=== PATIENT | female | born 1930 | race Caucasian/White ===

== ENCOUNTER 2016-09-09 05:10 | Observation (INO) ==
[2016-09-09] MEDS ORDERED: *HR* HYDROmorphone (PF) 1 MG/ML SYRINGE IVP ONE ×2 (05:23→08:49)
[2016-09-09] MEDS ORDERED: Ondansetron 4 MG/2 ML VIAL IVP ONE (05:23)
--- NOTE | 2016-09-09 05:26 | Emergency Department Note ---
Addendum entered and electronically signed by Parker Munson DO 09/09/16 07: 03: EKG shows sinus rhythm with ventricular rate of 78 bpm. GA 149. QRS 106. Patient has no elevations or depressions. Patient has no T-wave changes. EKG is similar to previous of 07/29/15. Original Note: Disposition Clinical Impression: Neck pain Disposition: Still a Patient Condition: Good Referrals: Karel Nick MD [Primary Care Provider] - Forms: ED Satisfaction Letter General Adult HPI - General Chief complaint: ED Neck Pain/Injury Stated complaint: Neck pain Time Seen by Provider: 09/09/16 05:17 Source: EMS Mode of arrival: ambulatory Limitations: no limitations Nursing Notes Reviewed: Yes Vital Signs Reviewed: Yes - History of Present Illness HPI Narrative: Patient here for evaluation of neck and shoulder pain. Patient's symptoms started on to been progressive in nature. Patient is not taking any pain medications except one Percocet later today after symptoms became as severe as they are. She has significant pain with even minor outpatient. No evidence of rash or other skin abnormality. Patient has pain with any movement of her neck as well as twisting of her torso. Patient has not had fevers or altered mental status. No abnormalities to lower extremities. Pain Scale: 10 - Related Data Previous Rx's Medication Instructions Recorded TraMADol [Ultram] 50 mg PO Q6HR PRN #15 tablet 01/23/15 Allergies Allergy/AdvReac Type Severity Reaction Status Date / Time acetaminophen [From Vicodin] AdvReac See Verified 01/02/15 09:31 Comments Cyclobenzaprine AdvReac Drowsy Verified 01/02/15 09:31 [From Flexeril] hydrocodone [From Vicodin] AdvReac See Verified 01/02/15 09:31 Comments Hydromorphone [From Dilaudid] AdvReac Drowsy Verified 01/02/15 09:31 Oxycodone AdvReac Dizziness Verified 01/02/15 09:31 Review of Systems: CONSTITUTIONAL: No weight loss, fever, chills, weakness or fatigue. HEENT: Eyes: No visual changes. Ears, Nose, Throat: No hearing loss, difficulty talking or unable to swallow. SKIN: No rash or itching. CARDIOVASCULAR: No chest pain, chest pressure or chest discomfort. No palpitations or edema. RESPIRATORY: No shortness of breath, cough or sputum. GASTROINTESTINAL: No anorexia, nausea, vomiting or diarrhea. No abdominal pain or blood. GENITOURINARY: No burning on urination or hematuria. NEUROLOGICAL: No headache, dizziness, syncope, paralysis, ataxia, numbness or tingling in the extremities. No change in bowel or bladder control. MUSCULOSKELETAL: Neck and upper back pain Past Medical History - Past Medical History Medical history: Reports: diabetes, renal disease, myocardial infarction, hypertension, TIA, kidney stones Surgical history: Reports: hysterectomy Psychiatric history: Reports: no psych history EDGE SAWYER history: Reports: no EDGE SAWYER history - Social History Smoking Status: Never smoker Smokeless Tobacco Status: No Alcohol use: Reports: none Drug use: Reports: none Physical Exam General appearance: NAD, conversant Eyes: anicteric sclerae, moist conjunctivae; PERRL HENT: Atraumatic; oropharynx clear with moist mucous membranes and no mucosal ulcerations Neck: Normal inspection; Trachea midline; FROM, supple Lungs: CTA, with normal respiratory effort and no intercostal retractions CV: RRR, systolic heart murmur Abdomen: Soft, non-tender; no rebound or gaurding Extremities: No peripheral edema or extremity lymphadenopathy Skin: Normal temperature; no rash, ulcers or lesions Psych: Appropriate mood and affect Neuro: alert and oriented to person, place and time Musculoskeletal: Patient has tenderness to the left lateral neck as well as trapezius that spreads to the left and right trapezius. Mild rhomboid tenderness. - General General appearance: alert Course - Reevaluation(s) Reevaluation #1: We will sign patient out to Dr. Wells. Vital Signs Temperature 97.7 F 09/09/16 05:11 Pulse Rate 77 09/09/16 05:11 Respiratory Rate 16 09/09/16 05:11 Blood Pressure 193/84 09/09/16 05:11 O2 Sat by Pulse Oximetry 96 09/09/16 05:11 Temperature 97.7 F 09/09/16 05:11 Pulse Rate 73 09/09/16 06:19 Respiratory Rate 18 09/09/16 06:19 Blood Pressure 176/79 09/09/16 06:19 O2 Sat by Pulse Oximetry 98 09/09/16 06:19 Oxygen Delivery Oxygen Delivery Nasal Cannula Attestation Statement - Attestation Attestation: I personally interviewed and examined this patient and my medical decision- making was reviewed with the ED Resident Physician, Dr. Munson. I agree with the documented findings, disposition and treatment plan as described except to the extent set forth below. Patient is a pleasant 86-year-old white elderly female who presents to the emergency department with complaints of gradually worsening right sided neck and shoulder pain. Patient states she fell asleep in her recliner last week and upon waking had significant left-sided neck and shoulder pain. Recent states over the course of time the left side has improved and now she feels like it is gone over to the right side. She has no radiating pain down her back nor through to her chest or down the right upper extremity. Patient denies any numbness or weakness in the arms bilaterally. Patient denies any history of falls or trauma. Patient with no midline neck pain or discomfort. I agree with patient's physical exam is documented. Clinically patient with what appears to be muscle strain or spasm in the paraspinal lower cervical and upper thoracic muscles as well as the rhomboid area and deltoid muscle and right greater than left. We will reevaluate patient after pain medicine administration and will see if she is comfortable with discharge home to follow-up with her family doctor.
[2016-09-09] MEDS ORDERED: diazePAM 10 MG/2 ML SYRINGE IVP STA (06:59)
--- NOTE | 2016-09-09 07:18 | Emergency Department Note ---
Disposition Clinical Impression: Neck pain, Degenerative disc disease, cervical, Cervical stenosis of spinal canal Disposition: Admitted As Inpatient Condition: Good Referrals: Karel Nick MD [Primary Care Provider] - Forms: ED Satisfaction Letter Time of Disposition: 09:26 General Adult HPI - General Chief complaint: ED Neck Pain/Injury Stated complaint: Neck pain Time Seen by Provider: 09/09/16 05:17 Source: EMS Mode of arrival: ambulatory Limitations: no limitations - History of Present Illness Pain Scale: 10 - Related Data Previous Rx's Medication Instructions Recorded TraMADol [Ultram] 50 mg PO Q6HR PRN #15 tablet 01/23/15 Allergies Allergy/AdvReac Type Severity Reaction Status Date / Time acetaminophen [From Vicodin] AdvReac See Verified 01/02/15 09:31 Comments Cyclobenzaprine AdvReac Drowsy Verified 01/02/15 09:31 [From Flexeril] hydrocodone [From Vicodin] AdvReac See Verified 01/02/15 09:31 Comments Hydromorphone [From Dilaudid] AdvReac Drowsy Verified 01/02/15 09:31 Oxycodone AdvReac Dizziness Verified 01/02/15 09:31 Past Medical History - Past Medical History Medical history: Reports: diabetes, renal disease, myocardial infarction, hypertension, TIA, kidney stones Surgical history: Reports: hysterectomy Psychiatric history: Reports: no psych history SERVICE PLUMBER history: Reports: no SERVICE PLUMBER history - Social History Smoking Status: Never smoker Smokeless Tobacco Status: No Alcohol use: Reports: none Drug use: Reports: none Physical Exam - General Limitations: no limitations General appearance: alert Course - Reevaluation(s) Reevaluation #1: 86-year-old who was seen by overnight stocker with neck pain that is severe. Given her pain meds muscle relaxers she continues to have severe pain. I discussed with the patient recent history. Patient states she initially had pain on the left side of her neck she thought she slept wrong. The pain is now migrated to the right side when she moves her head it seems to be worse. Dr. Munson indicates that clinically she looks better after pain medicine but she states she's had no improvement. Physical examination she does have tenderness to the right of anterior margin the trapezius. She denies any headache and symptoms are clinically consistent with vertebral artery dissection. In light of her minimal improvement subjectively were going to obtain an MRI and some lab work. Note she was given Dilaudid earlier, patient states she is not allergic to it. Time: :17 - Consultations Consultation #1: I spoke to Dr. Souza who recommends admission to the hospitalist and further evaluation. Time: : Consultation #2: Discussed with , admit. Time: : Vital Signs Temperature 97.7 F 09/09/16 05:11 Pulse Rate 77 09/09/16 05:11 Respiratory Rate 16 09/09/16 05:11 Blood Pressure 193/84 09/09/16 05:11 O2 Sat by Pulse Oximetry 96 09/09/16 05:11 Temperature 97.7 F 09/09/16 05:11 Pulse Rate 74 09/09/16 08:47 Respiratory Rate 18 09/09/16 08:47 Blood Pressure 165/83 09/09/16 08:47 O2 Sat by Pulse Oximetry 97 09/09/16 08:47 Oxygen Delivery Oxygen Delivery Room Air Medical Decision Making - Lab Data Result diagrams: 09/09/16 07:33 09/09/16 07:33 Lab Results 09/09/16 09/09/16 09/09/16 Range/Units 07:33 07:33 07:33 WBC 7.9 (4.3-11.1) K/mcL RBC 4.45 (3.82-4.97) M/mcL Hgb 11.0 L (11.5-15.4) g/dL Hct 35.9 (35.3-44.9) % MCV 80.7 L (83.0-100.0) fL MCH 24.7 L (28.0-33.3) pg MCHC 30.6 L (31.6-35.5) g/dL RDW 14.3 (11.5-14.5) % Plt Count 177 (140-400) K/mcL MPV 13.3 H (9.4-12.4) fL Immature Gran % 0.1 (0-4) % Seg Neutrophils % 68.5 % Lymphocytes % 21.2 % Monocytes % 8.3 % Eosinophils % 1.4 % Basophils % 0.5 % Neutrophils # 5.4 (1.6-8.9) K/mcL Lymphocytes # 1.7 (0.6-4.6) K/mcL Monocytes # 0.7 (0.0-1.3) K/mcL Eosinophils # 0.1 (0.0-0.6) K/mcL Basophils # 0.0 (0.0-0.2) K/mcL ESR 44 H (0-15) mm/hr Sodium 141 (136-145) mEq/L Potassium 4.5 (3.5-4.5) mEq/L Chloride 106 (98-109) mEq/L Carbon Dioxide 28 (19-29) mEq/L BUN 16 (7-20) mg/dL Creatinine 1.06 (0.57-1.11) mg/dL Est GFR ( Amer) 60 (> 60) Est GFR (Non-Af Amer) 49 L (> 60) BUN/Creatinine Ratio 15 (6-26) Glucose 114 H (70-99) mg/dL Calculated Osmolality 294 (280-300) Calcium 9.7 (8.6-10.8) mg/dL Troponin I (0-0.03) ng/mL 09/09/16 Range/Units 07:33 WBC (4.3-11.1) K/mcL RBC (3.82-4.97) M/mcL Hgb (11.5-15.4) g/dL Hct (35.3-44.9) % MCV (83.0-100.0) fL MCH (28.0-33.3) pg MCHC (31.6-35.5) g/dL RDW (11.5-14.5) % Plt Count (140-400) K/mcL MPV (9.4-12.4) fL Immature Gran % (0-4) % Seg Neutrophils % % Lymphocytes % % Monocytes % % Eosinophils % % Basophils % % Neutrophils # (1.6-8.9) K/mcL Lymphocytes # (0.6-4.6) K/mcL Monocytes # (0.0-1.3) K/mcL Eosinophils # (0.0-0.6) K/mcL Basophils # (0.0-0.2) K/mcL ESR (0-15) mm/hr Sodium (136-145) mEq/L Potassium (3.5-4.5) mEq/L Chloride (98-109) mEq/L Carbon Dioxide (19-29) mEq/L BUN (7-20) mg/dL Creatinine (0.57-1.11) mg/dL Est GFR ( Amer) (> 60) Est GFR (Non-Af Amer) (> 60) BUN/Creatinine Ratio (6-26) Glucose (70-99) mg/dL Calculated Osmolality (280-300) Calcium (8.6-10.8) mg/dL Troponin I 0.00 (0-0.03) ng/mL - Radiology Data Radiology results reviewed: Yes I reviewed the patient's radiology results. Cervical Spine MRI 09/09/16 07:13 IMPRESSION: 1. Moderate to severe C6-C7 degenerative disc disease with [id number] multifactorial spinal canal stenosis. Mild left neural foraminal stenosis at this level. 2. Additional mild multilevel degenerate spondylosis throughout the remainder of the cervical spine without additional high-grade spinal canal or neural foraminal stenosis. D/ / Adan Mccarthy MD / Adan Mccarthy MD Interpreting Provider: Adan Mccarthy MD - EKG Data EKG #1 EKG shows normal: sinus rhythm Rate: normal Rhythm: NSR Interpretation: no acute changes
[2016-09-09 07:38] LABS: Basophils % 0.5 %; Eosinophils # 0.1 K/mcL (0.0-0.6); Eosinophils % 1.4 %; Hematocrit 35.9 % (35.3-44.9); Immature Granulocytes % 0.1 % (0-4); Lymphocytes # 1.7 K/mcL (0.6-4.6); Lymphocytes % 21.2 %; Mean Corpuscular HGB Conc 30.6 g/dL (31.6-35.5); Mean Corpuscular Hemoglobin 24.7 pg (28.0-33.3); Mean Corpuscular Volume 80.7 fL (83.0-100.0); Mean Platelet Volume 13.3 fL (9.4-12.4); Monocytes # 0.7 K/mcL (0.0-1.3); Monocytes % 8.3 %; Neutrophils # 5.4 K/mcL (1.6-8.9); Platelet Count 177 K/mcL (140-400); Red Blood Count 4.45 M/mcL (3.82-4.97); Red Cell Distribution Width 14.3 % (11.5-14.5); Segmented Neutrophils % 68.5 %
[2016-09-09 07:50] LABS: Calcium 9.7 mg/dL (8.6-10.8); Potassium 4.5 mEq/L (3.5-4.5)
[2016-09-09] MEDS ORDERED: *HR* HYDROmorphone (PF) 1 MG/ML SYRINGE IVP PRN (10:47)
[2016-09-09] MEDS ORDERED: Naloxone 0.4 MG/ML INJ IVP PRN (10:47)
[2016-09-09] MEDS ORDERED: Acetaminophen 325 MG TABLET PO PRN (10:47)
[2016-09-09] MEDS ORDERED: Ondansetron 4 MG/2 ML VIAL IVP PRN (10:47)
--- NOTE | 2016-09-09 10:59 | Internal Med History&Physical ---
<Jo Mendes M - Last Filed: 09/09/16 11:32> Date of Encounter: 09/09/16 Time of Encounter: 10:56 Assessment and Plan (1) Neck pain Current visit: Yes Status: Acute Patient presents with severe, intractable pain in right neck. MRI shows severe degenerative disc disease in C6-C7 with moderate to severe multifactorial spinal canal stenosis. She was given dilaudid, diazepam and cogentin in the ER without any reported relief. PRN tylenol, oxycodone, dilaudid for pain. PRN diazepam for muscle spasm PRN narcan for respiratory depression. heat packs PRN PT consulted Dr. Souza of orthopedic/spine consulted. (2) Cervical stenosis of spinal canal Current visit: Yes Status: Acute Dr. Souza of orthopedic/spine consulted. (3) Type 2 diabetes mellitus Current visit: Yes Status: Acute Well controlled as evidenced by A1c of 5.7 on 08/18/16. Hold glipizide check blood sugars ACHS sliding scale correction dose ACHS hypoglycemic protocol. Qualifiers: Diabetes mellitus complication status: without complication Diabetes mellitus marine oil terminal superintendent insulin use: without marine oil terminal superintendent use Qualified Code(s): E11.9 - Type 2 diabetes mellitus without complications (4) Anticoagulated on Coumadin Current visit: Yes Status: Acute Patient has been on coumadin since her CVA last july. She follows with the anti-coagulation here. Will check PT/INR, PTT. Continue home dose of coumadin as long as INR is therapeutic. (5) Paroxysmal a-fib Current visit: Yes Status: Acute Patient with history of paroxysmal afib, as well as TIAs. She is on coumadin for anti-coagulation. She is currently in sinus rhythm with regular rate and rhythm on exam. Continue coumadin. Consider beta scarlett for uncontrolled hypertension as it would have dual purpose of rate control in the case of paroxysmal afib. (6) Hypertension Current visit: Yes Status: Acute Patient's blood pressure running high. Likely secondary to pain, but she also has not yet taken her morning lisinopril. Will continue home dose of lisinopril and consider adding beta scarlett if hypertension persists. Qualifiers: Hypertension type: essential hypertension Qualified Code(s): I10 - Essential (primary) hypertension (7) DVT prophylaxis Current visit: Yes Status: Acute anti-embolic stockings Patient on coumadin, additional pharmacologic prophylaxis not warranted. Internal Medicine - H&P: HPI Chief complaint: neck pain Admitted From: Emergency Dept Plans for Post Hospital Care: Home History of present illness: Ms. Blair is a 86 year old female hypertension, hyperlipidemia, type 2 diabetes , TIA, presented to the emergency department with complaints of neck pain. Patient reports that on the left side of her neck had a twinge in and she felt like she slept wrong, the pain then moved to the right side of her neck. She reports the right side of her neck is been hurting since Thursday evening and has been progressively worsening in severity. She describes the pain as severe stabbing pain running up the backside of her neck to her head into her upper right shoulder. She states she used heat packs at home which somewhat helped with the pain, and she took a Percocet at home which did not seem to help. She denies any chest pain, palpitations, shortness of breath, lightheadedness, dizziness, recent fevers fevers, chills, sweats. Evaluation in the emergency department included an MRI which showed moderate to severe C6- C7 degenerative disc disease with mild to moderate multifactorial spinal canal stenosis. On was negative at 0.00. White blood cell count was normal at 7.9. Dr. Souza of orthopedic spinal surgery was consulted. Patient's pain was intractable and so she was admitted for further management. On exam, patient alert and oriented, in no acute distress. Heart with regular rate and rhythm, systolic murmur. Lungs clear bilaterally to auscultation. Right posterior neck tender to palpation. Past Med Surg Social Fam HX - Past Medical History Medical history: diabetes, renal disease, myocardial infarction, hypertension, TIA, kidney stones Psychiatric history: no psych history - Past Surgical History Surgical History: appendectomy, cholecystectomy, hysterectomy, orthopedic, other (back surgery, right soulder, left rotator cuff surgery, ) - Social History Smoking Status: Never smoker Smokeless Tobacco Status: No Alcohol use: none Drug use: none - Family History Mother Living Status: Age at : 65 Hx Family Cardiac Disorders: Yes Hx Family Endocrine Disorder: Yes (diabetes) Father Living Status: Age at : 65 Hx Family Cardiac Disorders: Yes Internal Medicine - H&P: Meds Atorvastatin [Lipitor] 40 mg PO HS 09/09/16 [History] Ergocalciferol (VITAMIN D2) [Vitamin D2] 50,000 unit PO WALSH 09/09/16 [History] Gabapentin [Neurontin] 600 mg PO TID 09/09/16 [History] GlipiZIDE XL (24 HR) [Glucotrol XL] 2.5 mg PO QAM 09/09/16 [History] Lisinopril [Zestril] 20 mg PO BID 09/09/16 [History] Tizanidine HCl 2 mg PO BID PRN 09/09/16 [History] Warfarin [Coumadin] 5 mg PO SUTUWETHSA 09/09/16 [History] Warfarin [Coumadin] 7.5 mg PO MOFR 09/09/16 [History] Allergies acetaminophen [From Vicodin] Adverse Reaction (Verified 01/02/15 09:31) See Comments Cyclobenzaprine [From Flexeril] Adverse Reaction (Verified 01/02/15 09:31) Drowsy hydrocodone [From Vicodin] Adverse Reaction (Verified 01/02/15 09:31) See Comments Hydromorphone [From Dilaudid] Adverse Reaction (Verified 01/02/15 09:31) Drowsy Oxycodone Adverse Reaction (Verified 01/02/15 09:31) Dizziness All Systems PM: A 10-system review of systems was performed and is negative for pertinent findings except as documented above in the HPI. - Constitutional Constitutional: no chills, no fever(s), no night sweats - EENT Eyes: no change in vision, no discharge, no pain, no photophobia Ears: no ear discharge, no ear pain, no tinnitus Nose, mouth and throat: neck pain, no dysphagia, no nasal discharge, no sore throat - Cardiovascular Cardiovascular ROS IM: no chest pain, no diaphoresis, no dyspnea, no lightheadedness, no palpitations, no syncope - Respiratory Respiratory: no cough, no dyspnea, no wheezing, no excessive phlegm production - Gastrointestinal Gastrointestinal: no abdominal pain, no diarrhea, no hematemesis, no hematochezia, no melena, no nausea, no vomiting - Genitourinary Genitourinary: no change in urinary stream, no dysuria, no flank pain, no hematuria - Musculoskeletal Musculoskeletal ROS IM: no numbness, no tingling - Integumentary Integumentary IM: no rash, no unusual bruising - Neurological Neurological ROS: no confusion, no convulsions, no focal weakness, no numbness, no tingling, no tremor(s) - Hematologic/Lymphatic Hematologic/Lymphatic: no easy bruising - Constitutional Vitals: Temp Pulse Resp BP Pulse Ox 97.7 F 74 18 156/84 97 09/09/16 05:11 09/09/16 08:47 09/09/16 10:01 09/09/16 10:01 09/09/16 08:47 General appearance: Present: A&O X 3, pleasant, no acute distress - Head Head exam: Present: atraumatic, normocephalic - Eye Eye exam: Present: PERRL, conjuntiva pink, sclera anicteric Pupils: Present: PERRL - Neck Neck exam general surgery: Present: tenderness, supple, trachea midline. Absent : lymphadenopathy - Respiratory Respiratory exam: Present: CTAB. Absent: accessory muscle use, rales, rhonchi, wheezes - Cardiovascular Cardiovascular exam: Present: RRR, +S1, +S2, systolic murmur. Absent: diastolic murmur, gallop, rubs - GI/Abdominal GI/Abdominal exam: Present: normal bowel sounds, soft, no peritoneal signs. Absent: distended, tenderness - Extremities Exam Extremities exam: Present: warm, radial pulses palpable and symetrical. Absent : calf tenderness, cyanotic, pedal edema - Neurological Exam Neurological exam: Present: CN II-XII intact, oriented X3, no focal deficits. Absent: pronater drift, facial droop, speech deficit - Skin Skin exam: Present: dry, intact Internal Med - H&P Results - Labs CBC & Chem 7: 09/09/16 07:33 09/09/16 07:33 Labs: All Lab Results (24 Hours) 09/09/16 09/09/16 09/09/16 Range/Units 07:33 07:33 07:33 WBC 7.9 (4.3-11.1) K/mcL RBC 4.45 (3.82-4.97) M/mcL Hgb 11.0 L (11.5-15.4) g/dL Hct 35.9 (35.3-44.9) % MCV 80.7 L (83.0-100.0) fL MCH 24.7 L (28.0-33.3) pg MCHC 30.6 L (31.6-35.5) g/dL RDW 14.3 (11.5-14.5) % Plt Count 177 (140-400) K/mcL MPV 13.3 H (9.4-12.4) fL Immature Gran % 0.1 (0-4) % Seg Neutrophils % 68.5 % Lymphocytes % 21.2 % Monocytes % 8.3 % Eosinophils % 1.4 % Basophils % 0.5 % Neutrophils # 5.4 (1.6-8.9) K/mcL Lymphocytes # 1.7 (0.6-4.6) K/mcL Monocytes # 0.7 (0.0-1.3) K/mcL Eosinophils # 0.1 (0.0-0.6) K/mcL Basophils # 0.0 (0.0-0.2) K/mcL ESR 44 H (0-15) mm/hr Sodium 141 (136-145) mEq/L Potassium 4.5 (3.5-4.5) mEq/L Chloride 106 (98-109) mEq/L Carbon Dioxide 28 (19-29) mEq/L BUN 16 (7-20) mg/dL Creatinine 1.06 (0.57-1.11) mg/dL Est GFR ( Amer) 60 (> 60) Est GFR (Non-Af Amer) 49 L (> 60) BUN/Creatinine Ratio 15 (6-26) Glucose 114 H (70-99) mg/dL Calculated Osmolality 294 (280-300) Calcium 9.7 (8.6-10.8) mg/dL Troponin I (0-0.03) ng/mL 09/09/16 Range/Units 07:33 WBC (4.3-11.1) K/mcL RBC (3.82-4.97) M/mcL Hgb (11.5-15.4) g/dL Hct (35.3-44.9) % MCV (83.0-100.0) fL MCH (28.0-33.3) pg MCHC (31.6-35.5) g/dL RDW (11.5-14.5) % Plt Count (140-400) K/mcL MPV (9.4-12.4) fL Immature Gran % (0-4) % Seg Neutrophils % % Lymphocytes % % Monocytes % % Eosinophils % % Basophils % % Neutrophils # (1.6-8.9) K/mcL Lymphocytes # (0.6-4.6) K/mcL Monocytes # (0.0-1.3) K/mcL Eosinophils # (0.0-0.6) K/mcL Basophils # (0.0-0.2) K/mcL ESR (0-15) mm/hr Sodium (136-145) mEq/L Potassium (3.5-4.5) mEq/L Chloride (98-109) mEq/L Carbon Dioxide (19-29) mEq/L BUN (7-20) mg/dL Creatinine (0.57-1.11) mg/dL Est GFR ( Amer) (> 60) Est GFR (Non-Af Amer) (> 60) BUN/Creatinine Ratio (6-26) Glucose (70-99) mg/dL Calculated Osmolality (280-300) Calcium (8.6-10.8) mg/dL Troponin I 0.00 (0-0.03) ng/mL - Diagnostic Studies Other Images Additional comments: Cervical Spine MRI 09/09/16 07:13 IMPRESSION: 1. Moderate to severe C6-C7 degenerative disc disease with [id number] multifactorial spinal canal stenosis. Mild left neural foraminal stenosis at this level. 2. Additional mild multilevel degenerative spondylosis throughout the remainder of the cervical spine without additional high-grade spinal canal or neural foraminal stenosis. D/ / 09/09/2016 09:06:53 Adan Mccarthy MD / Nilda Richardson Interpreting Provider: Adan Mccarthy MD <Girish Corley - Last Filed: 09/09/16 18:41> Date of Encounter: 09/09/16 Internal Medicine - H&P: HPI History of present illness: Ms. Blair is a 86 year old female All Systems PM: A 10-system review of systems was performed and is negative for pertinent findings except as documented above in the HPI. - Constitutional Vitals: Temp Pulse Resp BP Pulse Ox 98.5 F 84 16 165/65 99 09/09/16 15:15 09/09/16 15:15 09/09/16 15:15 09/09/16 15:15 09/09/16 15:15 Internal Med - H&P Results - Labs CBC & Chem 7: 09/09/16 07:33 09/09/16 07:33 - Attending Attestation I examined this patient and my medical decision-making was reviewed with the Advanced Practice Nurse. I agree with the documented findings, disposition and treatment plan as described .
[2016-09-09] MEDS ORDERED: *HR* Dextrose 50 % in Water (Syg) 50 ML SYRINGE IVP PRN (11:08)
[2016-09-09] MEDS ORDERED: D5% in Water 1,000 ML IVC PRN (11:08)
[2016-09-09] MEDS ORDERED: Dextrose Gel 15 GM PO PRN ×2 (11:08)
[2016-09-09 11:18] LABS: INR 3.2; Prothrombin Time 35.6 Seconds (9.4-12.1)
[2016-09-09 11:22] LABS: Activated Partial Thrombo Time 45.3 Seconds (26.0-36.0)
[2016-09-09] MEDS ORDERED: diazePAM 10 MG/2 ML SYRINGE IVP PRN (11:26)
[2016-09-09] MEDS: Insulin LISPRO 300 UNITS/3 ML VIAL SQ SCH ×3 (11:34→21:09)
[2016-09-09] MEDS: Lisinopril 20 MG TABLET PO SCH ×2 (12:07→21:23)
[2016-09-09] MEDS: *HR* HYDROmorphone (PF) 1 MG/ML SYRINGE IVP PRN ×2 (12:07→18:04)
[2016-09-09] MEDS: *HR* OxyCODONE Immed Rel 5 MG TABLET PO PRN ×2 (13:36→19:38)
[2016-09-09] MEDS: tiZANidine 4 MG TABLET PO PRN (16:15)
[2016-09-09] MEDS: Gabapentin 300 MG CAPSULE PO SCH ×2 (16:15→21:23)
--- NOTE | 2016-09-09 16:49 | Electrocardiograph Report ---
[address] [address] Test Date: 2016-09-09 Pat Name: Jillian Blair Department: 104 Room: 3A24 Gender: F Credit Control Clerk: : 1930 Requested By: Argentina Vázquez Order Number: [id number] Reading MD: Valentina Song Measurements Intervals Doss Rate: 78 P: 21 CO: 149 QRS: 2 QRSD: 106 T: 23 QT: 370 QTc: 403 Interpretive Statements SINUS RHYTHM Electronically Signed On 09-09-2016 16:48:11 EDT by Valentina Song
[2016-09-09] MEDS ORDERED: *HR* Warfarin 5 MG TABLET PO SCH (18:00)
--- NOTE | 2016-09-09 18:19 | Electrocardiograph Report ---
[address] [place], [place] [address] Test Date: 2016-09-09 Pat Name: Jillian Blair Department: 105 Room: 3A24 Gender: Quality Officer: : 1930 Requested By: Mono Wells Order Number: [id number] Reading MD: Lay Terrazas Measurements Intervals [place] Rate: 76 P: 14 CT: 164 QRS: 2 QRSD: 89 T: 19 QT: 388 QTc: 418 Interpretive Statements SINUS RHYTHM Consider left atrial abnormality Electronically Signed On 09-09-2016 18:17:38 EDT by Lay Terrazas
[2016-09-09] MEDS ORDERED: Lisinopril 20 MG TABLET PO SCH (21:00)
[2016-09-10] MEDS: *HR* OxyCODONE Immed Rel 5 MG TABLET PO PRN ×3 (03:39→23:45)
[2016-09-10 04:14] LABS: Basophils % 0.3 %; Eosinophils # 0.1 K/mcL (0.0-0.6); Eosinophils % 0.7 %; Hematocrit 35.9 % (35.3-44.9); Immature Granulocytes % 0.4 % (0-4); Immature Platelets 15.7 % (1.1-6.1); Lymphocytes # 2.2 K/mcL (0.6-4.6); Lymphocytes % 23.3 %; Mean Corpuscular HGB Conc 30.6 g/dL (31.6-35.5); Mean Corpuscular Hemoglobin 24.8 pg (28.0-33.3); Mean Corpuscular Volume 80.9 fL (83.0-100.0); Mean Platelet Volume 13.4 fL (9.4-12.4); Monocytes # 1.3 K/mcL (0.0-1.3); Monocytes % 13.7 %; Neutrophils # 5.9 K/mcL (1.6-8.9); Platelet Count 188 K/mcL (140-400); Red Blood Count 4.44 M/mcL (3.82-4.97); Red Cell Distribution Width 14.3 % (11.5-14.5); Segmented Neutrophils % 61.6 %
[2016-09-10 04:18] LABS: INR 3.3; Prothrombin Time 36.9 Seconds (9.4-12.1)
[2016-09-10 04:21] LABS: Activated Partial Thrombo Time 47.1 Seconds (26.0-36.0)
[2016-09-10 04:26] LABS: Calcium 9.6 mg/dL (8.6-10.8); Potassium 4.6 mEq/L (3.5-4.5)
[2016-09-10] MEDS: Insulin LISPRO 300 UNITS/3 ML VIAL SQ SCH ×4 (07:53→23:44)
[2016-09-10] MEDS: tiZANidine 4 MG TABLET PO PRN ×2 (07:59→23:45)
[2016-09-10] MEDS: Gabapentin 300 MG CAPSULE PO SCH ×2 (09:33→20:05)
[2016-09-10] MEDS: Lisinopril 20 MG TABLET PO SCH ×2 (09:33→20:05)
[2016-09-10] MEDS: *HR* HYDROmorphone (PF) 1 MG/ML SYRINGE IVP PRN ×3 (12:04→20:04)
--- NOTE | 2016-09-10 14:10 | Internal Med Progress Note ---
Date of Encounter: 09/10/16 Time of Encounter: 10:00 - Assessment and plan (1) Neck pain Current Visit: Yes Status: Acute Assessment and plan: Acute neck pain. MRI shows cervical spine stenosis and degenerative change. On pain medication. Spine surgery Dr. Souza Consult informed by ER doctor. Will also consult pain management. (2) Degenerative disc disease, cervical Current Visit: Yes Status: Acute Assessment and plan: Pain management. Spine surgery evaluation. PTOT. (3) Cervical stenosis of spinal canal Current Visit: Yes Status: Acute Assessment and plan: Management as above (4) Anticoagulated on Coumadin Current Visit: Yes Status: Acute Assessment and plan: Continue Coumadin. Dose by pharmacy. (5) Type 2 diabetes mellitus Current Visit: Yes Status: Acute Assessment and plan: Cover patient with sliding scale Qualifiers: Diabetes mellitus complication status: with kidney complications Diabetes mellitus complication detail: with chronic kidney disease Diabetes mellitus snf insulin use: without snf use Chronic kidney disease stage: stage 3 (moderate) Qualified Code(s): E11.22 - Type 2 diabetes mellitus with diabetic chronic kidney disease; N18.3 - Chronic kidney disease, stage 3 ( moderate) (6) Paroxysmal a-fib Current Visit: Yes Status: Acute Assessment and plan: Pt has history of TIA. Right now she is on sinus rhythm, HR 65. We will continue Coumadin for anticoagulation. (7) Hypertension Current Visit: Yes Status: Acute Assessment and plan: Continue home medications Qualifiers: Hypertension type: essential hypertension Qualified Code(s): I10 - Essential (primary) hypertension (8) Lumbar spondylosis Current Visit: No Status: Chronic Assessment and plan: Patient has chronic low back pain. She is a following pain management Dr. López as outpatient Qualifiers: Spinal osteoarthritis complication: without myelopathy or radiculopathy Qualified Code(s): M47.816 - Spondylosis without myelopathy or radiculopathy, lumbar region (9) DVT prophylaxis Current Visit: Yes Status: Acute Assessment and plan: Patient is on Coumadin. - Time Spent With Patient 25 - 35 minutes - Subjective Interval history: Patient is a 86-year-old female admitted for severe neck pain. Her past medical history is significant for diabetes, CKD, paroxysmal A. fib, history of TIA, hypertension. Pt was seen and examined. Still complaining severe neck pain, said that the pain moved to head. Vital signs stable. No fever. No vision change. No focal neuro deficits. Spinal surgeon consult was informed by ER doctor. Will continue pain medication. Order head CT because patient also complains of headache. - Constitutional Vitals: Temp Pulse Resp BP Pulse Ox 97.5 F L 65 18 113/58 98 09/10/16 11:33 09/10/16 11:33 09/10/16 11:33 09/10/16 11:33 09/10/16 11:33 General appearance: Present: mild distress, A&O X 3, pleasant - Head Head exam: Present: atraumatic, normocephalic - Eye Eye exam: Present: PERRL, conjuntiva pink, sclera anicteric Pupils: Present: PERRL - Neck Neck exam general surgery: Present: supple, trachea midline. Absent: full ROM ( ROM limited due to pain.), lymphadenopathy - Respiratory Respiratory exam: Present: CTAB. Absent: accessory muscle use, rales, rhonchi, wheezes - Cardiovascular Cardiovascular exam: Present: RRR, +S1, +S2. Absent: diastolic murmur, gallop, rubs, systolic murmur - GI/Abdominal GI/Abdominal exam: Present: normal bowel sounds, soft, no peritoneal signs. Absent: distended, tenderness - Extremities Exam Extremities exam: Present: warm, radial pulses palpable and symetrical. Absent : calf tenderness, cyanotic, pedal edema - Neurological Exam Neurological exam: Present: CN II-XII intact, oriented X3, no focal deficits. Absent: pronater drift, facial droop, speech deficit - Skin Skin exam: Present: dry, intact Internal Medicine: Result - Labs CBC & Chem 7: 09/10/16 04:05 09/10/16 04:05 Labs: Short CBC 09/10/16 Range/Units 04:05 WBC 9.6 (4.3-11.1) K/mcL Hgb 11.0 L (11.5-15.4) g/dL Hct 35.9 (35.3-44.9) % Plt Count 188 (140-400) K/mcL Neutrophils # 5.9 (1.6-8.9) K/mcL BMP 09/10/16 04:05 Sodium 136 Potassium 4.6 H Chloride 100 Carbon Dioxide 29 BUN 15 Creatinine 1.15 H Glucose 135 H Calcium 9.6 - ABG Interpretation ABG results: PT/INR, D-dimer PT 36.9 Seconds (9.4-12.1) H 09/10/16 04:05 - EKG Interpretation EKG Interpreted by Myself: Yes EKG shows normal: sinus rhythm Rate: normal - VTE Documentation of Mechanical Device: Graduated compression elastic hosiery Consult Discharge Plan - Plan Referrals: Karel Nick MD [Primary Care Provider] -
--- NOTE | 2016-09-10 16:17 | Pain Management Consultation ---
Date of Encounter: 09/10/16 Time of Encounter: 16:16 Assessment and Plan (1) Myofascial muscle pain Current Visit: Yes Status: Chronic The patient is expressing an exacerbation of myofascial pain and specifically muscle spasm in the cervical paraspinal muscles and upper trapezius. This is causing occipital neuritis along the path of the greater occipital nerves bilaterally. I recommend ice, heat, local massage, oral and IV analgesics as needed. The patient should be discharged home when appropriate. She can follow-up with me in the office as early as tomorrow. I talked to the dip unit operator and asked that she add the patient onto my schedule tomorrow morning. I also spoke with the nurse and Dr. Vázquez. We can proceed with trigger point injections in the office tomorrow for acute muscle spasm related pain. The assessment and plan as outlined above was discussed with the patient and/or family members who expressed understanding and agreement. All questions were answered. History of Present Illness Chief complaint: neck pain HPI: Ms. Blair is a 86 year old female suffering with a severe pain in her left and right neck and upper shoulders since this past . Therefore, the pain has been present for approximate 6 days. She described the pain as a sharp sensation that does not radiate into her arms. She denies numbness or weakness in the arms. She has had trouble turning her neck for the past 6 days. She also has increased pain with bringing her arms above her head. She found it difficult to move around and move from a sitting to standing position. Pain score 10/10. Past Med Surg Social Fam HX - Past Medical History Medical history: diabetes, renal disease, myocardial infarction, hypertension, TIA, kidney stones Psychiatric history: no psych history - Past Surgical History Surgical History: appendectomy, cholecystectomy, hysterectomy, orthopedic, other (back surgery, right soulder, left rotator cuff surgery, ) - Social History Smoking Status: Never smoker Smokeless Tobacco Status: No Alcohol use: none Drug use: none - Family History Mother Living Status: Age at : 65 Hx Family Cardiac Disorders: Yes Hx Family Endocrine Disorder: Yes (diabetes) Father Living Status: Age at : 65 Cause of : OK Hx Family Cardiac Disorders: Yes Hx Family Respiratory Disorders: No Medications and Allergies Atorvastatin [Lipitor] 40 mg PO HS 09/09/16 [History] Ergocalciferol (VITAMIN D2) [Vitamin D2] 50,000 unit PO WALSH 09/09/16 [History] Gabapentin [Neurontin] 600 mg PO TID 09/09/16 [History] GlipiZIDE XL (24 HR) [Glucotrol XL] 2.5 mg PO QAM 09/09/16 [History] Lisinopril [Zestril] 20 mg PO BID 09/09/16 [History] Tizanidine HCl 2 mg PO BID PRN 09/09/16 [History] Warfarin [Coumadin] 5 mg PO SUTUWETHSA 09/09/16 [History] Warfarin [Coumadin] 7.5 mg PO MOFR 09/09/16 [History] Allergies acetaminophen [From Vicodin] Adverse Reaction (Verified 01/02/15 09:31) See Comments Cyclobenzaprine [From Flexeril] Adverse Reaction (Verified 01/02/15 09:31) Drowsy hydrocodone [From Vicodin] Adverse Reaction (Verified 01/02/15 09:31) See Comments Hydromorphone [From Dilaudid] Adverse Reaction (Verified 01/02/15 09:31) Drowsy Oxycodone Adverse Reaction (Verified 01/02/15 09:31) Dizziness Review of Systems - Constitutional Constitutional ROS IM: no photophobia, no phonophobia, no daytime sleepiness, no fever(s), no stops breathing during sleep - EENT Nose, mouth and throat: no headache(s), no neck pain, no neck trauma - Cardiovascular Cardiovascular ROS: no chest pain, no leg edema, no lightheadedness - Respiratory Respiratory: no pain on inspiration, no pain with cough - Gastrointestinal Gastrointestinal: no abdominal pain, no constipation, no diarrhea, no heartburn - Genitourinary Genitourinary ROS: no difficulty urinating, no flank pain, no urinary hesitancy - Musculoskeletal Musculoskeletal ROS: no muscle weakness, no numbness, no radiating pain into limb, no tingling - Integumentary Integumentary: no erythema, no lesions, no swelling - Neurological Neurological ROS: no abnormal gait, no behavioral changes, no focal weakness, no radicular pain - Psychiatric Psychiatric general: no anxiety, no confusion, no depression - Hematologic/Lymphatic Hematologic/Lymphatic pediatric: no easy bleeding, no easy bruising Physical Exam Initial Vital Signs Temp Pulse Resp BP Pulse Ox 97.7 F 77 16 193/84 96 09/09/16 05:11 09/09/16 05:11 09/09/16 05:11 09/09/16 05:11 09/09/16 05:11 - Additional Findings EYES:: pupils equal and round, no myosis. SKIN:: no areas of echymoses or petechiae CARDIOVASCULAR:: no murmurs PULMONARY:: lung barrera clear to auscultation bilaterally. Quiet, normal respiratory pattern. GASTROINTESTINAL:: active bowel sounds. MUSCULOSKELETAL PALPATION:: paraspinous musculature is tender to deep palpation in the cervical area bilaterally and upper trapezius both sides, pain radiates along greater occipital nerves ROM:: Active flexion and extension are reduced in the cervical area. Active Rotation is reduced in the cervical area. STRENGTH:: RIGHT shoulder elevation 5/5 :: LEFT shoulder elevation 5/5 RIGHT elbow flexion 5/5 :: LEFT elbow flexion 5/5 RIGHT elbow extension 5/5 :: LEFT elbow extension 5/5 RIGHT wrist flexion 5/5:: LEFT wrist flexion 5/5 RIGHT wrist extension 5/5 :: LEFT wrist extension 5/5 RIGHT hand data warehouse architect 5/5 :: LEFT hand data warehouse architect 5/5 SPURLING TEST:: negative NEUROLOGIC DEEP TENDON REFLEXES:: RIGHT biceps 2/4 :: LEFT biceps 2/4 RIGHT brachioradialis 2/4 :: LEFT brachioradialis 2/4 RIGHT triceps 2/4 :: LEFT triceps 2/4 SENSATION:: hypesthesia is not noted in upper extremity dermatomes. SIGNS OF NEUROVASCULAR COMPRESSION Miles Sign:: negative left and right digits Romberg Test:: negative Spasticity:: none Atrophy:: not present in UE or LE musculature Fasciculation:: not present in UE or LE musculature PSYCHIATRIC:: ORIENTATION:: awake and alert. INSIGHT:: good awareness of illness. AFFECT:: pleasant. Radiology Images Viewed By Me:: 09/09/2016 cervical MRI shows C6-C7 disc disease causing moderate central canal stenosis. I have reviewed and agree with information documented in the scribed documentation, ROS, patient medications, allergies, medical history, surgical history, social history, and family history. Results - Labs 09/10/16 04:05 09/10/16 04:05 Abnormal lab results Hgb 11.0 g/dL (11.5-15.4) L 09/10/16 04:05 MCV 80.9 fL (83.0-100.0) L 09/10/16 04:05 MCH 24.8 pg (28.0-33.3) L 09/10/16 04:05 MCHC 30.6 g/dL (31.6-35.5) L 09/10/16 04:05 MPV 13.4 fL (9.4-12.4) H 09/10/16 04:05 Immature Plt Fraction 15.7 % (1.1-6.1) H 09/10/16 04:05 ESR 44 mm/hr (0-15) H 09/09/16 07:33 PT 36.9 Seconds (9.4-12.1) H 09/10/16 04:05 APTT 47.1 Seconds (26.0-36.0) H 09/10/16 04:05 Potassium 4.6 mEq/L (3.5-4.5) H 09/10/16 04:05 Creatinine 1.15 mg/dL (0.57-1.11) H 09/10/16 04:05 Est GFR ( Amer) 54 (> 60) L 09/10/16 04:05 Est GFR (Non-Af Amer) 45 (> 60) L 09/10/16 04:05 Glucose 135 mg/dL (70-99) H 09/10/16 04:05 POC Glucose 121 (58-89) H 09/10/16 11:36 Diabetes panel 09/10/16 Range/Units 04:05 Sodium 136 (136-145) mEq/L Potassium 4.6 H (3.5-4.5) mEq/L Chloride 100 (98-109) mEq/L Carbon Dioxide 29 (19-29) mEq/L BUN 15 (7-20) mg/dL Creatinine 1.15 H (0.57-1.11) mg/dL Glucose 135 H (70-99) mg/dL Calcium 9.6 (8.6-10.8) mg/dL Calcium panel 09/10/16 Range/Units 04:05 Calcium 9.6 (8.6-10.8) mg/dL Pituitary panel 09/10/16 Range/Units 04:05 Sodium 136 (136-145) mEq/L Potassium 4.6 H (3.5-4.5) mEq/L Chloride 100 (98-109) mEq/L Carbon Dioxide 29 (19-29) mEq/L BUN 15 (7-20) mg/dL Creatinine 1.15 H (0.57-1.11) mg/dL Glucose 135 H (70-99) mg/dL Calcium 9.6 (8.6-10.8) mg/dL Adrenal panel 09/10/16 Range/Units 04:05 Sodium 136 (136-145) mEq/L Potassium 4.6 H (3.5-4.5) mEq/L Chloride 100 (98-109) mEq/L Carbon Dioxide 29 (19-29) mEq/L BUN 15 (7-20) mg/dL Creatinine 1.15 H (0.57-1.11) mg/dL Glucose 135 H (70-99) mg/dL Calcium 9.6 (8.6-10.8) mg/dL All other labs normal. - VTE Documentation of Mechanical Device: Graduated compression elastic hosiery Consult Discharge Plan - Plan Referrals: Matthew López DO [Partnered Physician] - Karel Nick MD [Primary Care Provider] -
[2016-09-10] MEDS ORDERED: Warfarin perPT PO PRN (18:00)
[2016-09-11] MEDS: *HR* HYDROmorphone (PF) 1 MG/ML SYRINGE IVP PRN (02:23)
[2016-09-11 05:38] LABS: INR 2.3; Prothrombin Time 25.3 Seconds (9.4-12.1)
[2016-09-11] MEDS: tiZANidine 4 MG TABLET PO PRN (06:01)
[2016-09-11] MEDS: *HR* OxyCODONE Immed Rel 5 MG TABLET PO PRN (06:02)
--- NOTE | 2016-09-11 08:03 | Discharge Summary ---
Date of Encounter: 09/11/16 Time of Encounter: 07:58 - Discharge Diagnosis (1) Neck pain Priority: Primary Status: Acute (2) Degenerative disc disease, cervical Priority: Primary Status: Acute (3) Cervical stenosis of spinal canal Priority: Primary Status: Acute (4) Type 2 diabetes mellitus Priority: Secondary Status: Acute Qualifiers: Diabetes mellitus complication status: with kidney complications Diabetes mellitus complication detail: with chronic kidney disease Diabetes mellitus group home insulin use: without group home use Chronic kidney disease stage: stage 3 (moderate) Qualified Code(s): E11.22 - Type 2 diabetes mellitus with diabetic chronic kidney disease; N18.3 - Chronic kidney disease, stage 3 ( moderate) (5) Paroxysmal a-fib Priority: Secondary Status: Acute - Discharge Medications Home Medications: Atorvastatin [Lipitor] 40 mg PO HS 09/09/16 [History] Ergocalciferol (VITAMIN D2) [Vitamin D2] 50,000 unit PO WALSH 09/09/16 [History] Gabapentin [Neurontin] 600 mg PO TID 09/09/16 [History] GlipiZIDE XL (24 HR) [Glucotrol XL] 2.5 mg PO QAM 09/09/16 [History] Lisinopril [Zestril] 20 mg PO BID 09/09/16 [History] Tizanidine HCl 2 mg PO BID PRN 09/09/16 [History] Warfarin [Coumadin] 5 mg PO SUTUWETHSA 09/09/16 [History] Warfarin [Coumadin] 7.5 mg PO MOFR 09/09/16 [History] Allergies/Adverse Reactions: Allergies acetaminophen [From Vicodin] Adverse Reaction (Verified 01/02/15 09:31) See Comments Cyclobenzaprine [From Flexeril] Adverse Reaction (Verified 01/02/15 09:31) Drowsy hydrocodone [From Vicodin] Adverse Reaction (Verified 01/02/15 09:31) See Comments Hydromorphone [From Dilaudid] Adverse Reaction (Verified 01/02/15 09:31) Drowsy Oxycodone Adverse Reaction (Verified 01/02/15 09:31) Dizziness Procedures/tests Complete & Pending: Procedures Performed prior 72 hours Category Date Time Status CT head/brain wo con [CT] Stat Cat Scan 09/10/16 14:03 Completed ECG 12 lead ECG [ECG] Routine Y 09/09/16 05:14 Completed Date of admission: 09/09/16 09:39 Primary care physician: Karel Nick MD Consults: 09/09/16 10:50 Consult to Physical Therapy [CONS] Routine Comment: Evaluate, develop and implement POC Reason for Consult: neck pain 09/10/16 14:19 Consult to Pain Management [CONS] Routine Consulting Provider: Pain Mgt [facility] [place] Reason for Consult: Neck pain Call Completed: Yes Discharging clinician: Girish Corley Anticipated date of discharge: 09/11/16 - Patient Status Disposition: Home, Self-Care Condition: Good Functional capacity at discharge: uses cane/walker Overall status at discharge: patient is progressing back to baseline - Discharge Instructions Instructions: Syncope (DC), Hypotension (DC) Follow Up With: Matthew López DO [Partnered Physician] - 09/11/16 11:00 am Karel Nick MD [Primary Care Provider] - 09/23/16 9:45 am - Diet and Activity Activity: resume usual activities as tolerated Diet: advance to your usual diet Interval History: Patient presents with severe, intractable pain in right neck. MRI shows severe degenerative disc disease in C6-C7 with moderate to severe multifactorial spinal canal stenosis. She was given dilaudid, diazepam and cogentin in the ER without any reported relief. she was admitted for pain control, pain management was consulted, recommend ice , heat, local massage, oral and IV analgesics as needed. she is being dc today to f/u [facility] pain management OP today to proceed with trigger point injections for acute muscle spasm related pain. IT was noted that the INR was 3.3 which is midly supratehrapeutic ,given elderly pt and risk of fall, will decrease the dose of coumadin to 5 mg dialy. Patient to follow-up with her PCP for INR checkup. Patient is also noted to be on glipizide XL at home, A1c noted to be 5.7, given old age again and risk of fall and hypoglycemia from the long-acting sulfonylurea, will DC the glipizide from her home medication. Patient to follow-up with her primary care. Hospital course: Ms. Blair is a 86 year old female - Time Spent with Patient Total time spent providing and/or coordinating discharge services: - Constitutional Vitals: Temp Pulse Resp BP Pulse Ox 97.8 F 60 18 100/66 90 09/11/16 06:51 09/11/16 06:51 09/11/16 06:51 09/11/16 04:11 09/11/16 06:51 General appearance: Present: A&O X 3, pleasant Exam: - Head Head exam: Present: atraumatic, normocephalic - Eye Eye exam: Present: PERRL, conjuntiva pink, sclera anicteric Pupils: Present: PERRL - Neck Neck exam general surgery: Present: tenderness, supple, trachea midline. Absent : lymphadenopathy - Respiratory Respiratory exam: Present: CTAB. Absent: accessory muscle use, rales, rhonchi, wheezes - Cardiovascular Cardiovascular exam: Present: RRR, +S1, +S2, systolic murmur. Absent: diastolic murmur, gallop, rubs - GI/Abdominal GI/Abdominal exam: Present: normal bowel sounds, soft, no peritoneal signs. Absent: distended, tenderness - Extremities Exam Extremities exam: Present: warm, radial pulses palpable and symetrical. Absent : calf tenderness, cyanotic, pedal edema - Neurological Exam Neurological exam: Present: CN II-XII intact, oriented X3, no focal deficits. Absent: pronater drift, facial droop, speech deficit - Skin Skin exam: Present: dry, intact - VTE Documentation of Mechanical Device: Graduated compression elastic hosiery
[2016-09-11] MEDS ORDERED: 0.9 % Sodium Chloride 500 ML ONE (08:37)
[2016-09-11] MEDS: Gabapentin 300 MG CAPSULE PO SCH (08:41)
[2016-09-11] MEDS: Insulin LISPRO 300 UNITS/3 ML VIAL SQ SCH (08:42)
[2016-09-11] MEDS: Lisinopril 20 MG TABLET PO SCH (08:43)
[2016-09-11] MEDS ORDERED: 0.9 % Sodium Chloride 500 ML IVC ONE (08:44)
[2016-09-11 10:31] VITALS: BP 100/55
[2016-09-12] MEDS ORDERED: *HR* Warfarin 7.5 MG TABLET PO SCH (18:00)
== END 2016-09-11 10:56 | disposition home or self-care (01) ==
LOC: EMEROO 05:10 → 3ANU 05:10
PROVIDERS: ADMIT Internal Medicine Endocrinology, Diabetes & Metabolism; ATTEND Internal Medicine

== ENCOUNTER 2016-11-19 12:17 | Inpatient (IN) ==
[2016-11-19] MEDS ORDERED: 0.9 % Sodium Chloride 500 ML IVC ONE (12:32)
[2016-11-19 12:58] LABS: Basophils # 0.1 K/mcL (0.0-0.2); Basophils % 0.9 %; Eosinophils # 0.1 K/mcL (0.0-0.6); Eosinophils % 2.1 %; Hemoglobin 11.8 g/dL (11.5-15.4); Immature Granulocytes % 0.2 % (0-4); Lymphocytes # 2.2 K/mcL (0.6-4.6); Lymphocytes % 33.3 %; Mean Corpuscular HGB Conc 31.1 g/dL (31.6-35.5); Mean Corpuscular Hemoglobin 25.4 pg (28.0-33.3); Mean Corpuscular Volume 81.9 fL (83.0-100.0); Mean Platelet Volume 13.1 fL (9.4-12.4); Monocytes # 0.5 K/mcL (0.0-1.3); Monocytes % 7.5 %; Neutrophils # 3.7 K/mcL (1.6-8.9); Platelet Count 211 K/mcL (140-400); Red Blood Count 4.64 M/mcL (3.82-4.97); Red Cell Distribution Width 15.8 % (11.5-14.5)
--- NOTE | 2016-11-19 13:02 | Emergency Department Note ---
Disposition Clinical Impression: Acute kidney injury UTI (urinary tract infection) Qualifiers: Urinary tract infection type: site unspecified Hematuria presence: without hematuria Qualified Code(s): N39.0 - Urinary tract infection, site not specified TIA (transient ischemic attack) Qualifiers: Transient cerebral ischemia type: other Qualified Code(s): G45.8 - Other transient cerebral ischemic attacks and related syndromes Disposition: Admitted As Inpatient Condition: Good Referrals: NONE,PCP [Non-Partnered Physician] - Forms: ED Satisfaction Letter Time of Disposition: 14:06 Weakness HPI - General Chief complaint: ED Weakness Stated complaint: weakness/dizzy Time Seen by Provider: 11/19/16 12:32 Source: patient Limitations: no limitations Nursing Notes Reviewed: Yes Vital Signs Reviewed: Yes - History of Present Illness HPI Narrative: 86 year old female with HX of stroke and currently on coumadin states that for the past week has been experineicng lighheadeness associated with blurrines in her vision when she tries to focus on near field objects i.e. cannnot see the prices for items on her grocery list. PAinet states that she is also having some imbalance issues and needed to use her walker more recently because of balance issues. PAtinet states taht she called her PCP Dr. Nick and that she would need to be evaluated in the ED and admitted for TIA r.o CVA. PAtient states that these symptoms started about a week ago and that she also has ah istory fo diabetes and stroke. The stroke was in 2016 and did not leave her with any defecits. Patient denies fevers, cough, chest pain, abdominla pain, nausea, vomitting, or uti symptoms. No other neuro defecits. Pain Scale: 0 - Related Data Home Medications Medication Instructions Recorded Confirmed Atorvastatin [Lipitor] 40 mg PO HS 09/09/16 11/19/16 Ergocalciferol (VITAMIN D2) 50,000 unit PO WALSH 09/09/16 11/19/16 [Vitamin D2] Gabapentin [Neurontin] 600 mg PO TID 09/09/16 11/19/16 GlipiZIDE XL (24 HR) [Glucotrol XL] 2.5 mg PO QAM 09/09/16 11/19/16 Lisinopril [Zestril] 20 mg PO BID 09/09/16 11/19/16 Tizanidine HCl 2 mg PO BID PRN 09/09/16 11/19/16 Warfarin [Coumadin] 5 mg PO SUTUTHSA 09/09/16 11/19/16 Warfarin [Coumadin] 7.5 mg PO MOWEFR 09/09/16 11/19/16 Allergies Allergy/AdvReac Type Severity Reaction Status Date / Time acetaminophen [From Vicodin] AdvReac See Verified 01/02/15 09:31 Comments Cyclobenzaprine AdvReac Drowsy Verified 01/02/15 09:31 [From Flexeril] hydrocodone [From Vicodin] AdvReac See Verified 01/02/15 09:31 Comments Hydromorphone [From Dilaudid] AdvReac Drowsy Verified 01/02/15 09:31 Oxycodone AdvReac Dizziness Verified 01/02/15 09:31 Constitutional: Reports: weakness. Denies: fever, chills, weight change Eyes: Reports: other (blurred vision on near focus). Denies: eye pain, eye discharge, vision change ENT ED: Denies: ear pain, throat pain, dental pain, hearing loss, epistaxis, congestion, dysphagia Cardiovascular: Denies: chest pain, palpitations, dyspnea on exertion, edema, syncope Respiratory: Denies: cough, dyspnea, wheezes, hemoptysis, stridor Gastrointestinal: Denies: abdominal pain, nausea, vomiting, diarrhea, constipation, hematemesis, melena, hematochezia Genitourinary: Denies: dysuria, frequency, hematuria, discharge Musculoskeletal: Denies: back pain, neck pain, arthralgia, myalgia Integumentary: Denies: rash, abrasion, lesions Neurological: Reports: other (imbalance issues). Denies: headache, weakness, numbness, paresthesias, confusion, abnormal gait, vertigo Psychiatric: Denies: anxiety, depression, suicidal thoughts, homicidal thoughts , auditory hallucinations, visual hallucinations Endocrine: Denies: fatigue Hematological/Lymphatic: Denies: easy bleeding, easy bruising Allergic/Immunologic: Denies: facial swelling, urticaria Past Medical History - Past Medical History Medical history: Reports: diabetes, renal disease, myocardial infarction, hypertension, TIA, kidney stones Surgical history: Reports: appendectomy, cholecystectomy, hysterectomy, orthopedic, other (back surgery, right soulder, left rotator cuff surgery, ) Psychiatric history: Reports: no psych history APPRAISER history: Reports: no APPRAISER history - Social History Smoking Status: Never smoker Smokeless Tobacco Status: No Alcohol use: Reports: none Drug use: Reports: none Physical Exam - General Limitations: no limitations General appearance: alert, in no apparent distress - Head Head exam: atraumatic, normocephalic, normal inspection - Eye Eye exam: Present: normal appearance, PERRL, EOMI - Expanded Eye Exam Pupils: Left: reactive - ENT ENT exam: normal exam, normal oropharynx, mucous membranes moist - Expanded ENT Exam External ear exam: Present: normal external inspection Mouth exam: Present: normal external inspection Teeth exam: Present: normal inspection Throat exam: Present: normal inspection - Neck Neck exam: Present: normal inspection, full ROM, trachea midline - Chest Chest inspection: Present: normal inspection, symmetric chest wall rise - Respiratory Respiratory exam: Present: normal lung sounds bilaterally - Cardiovascular Cardiovascular exam: Present: regular rate, normal rhythm, normal heart sounds - Abdominal Exam Abdominal exam: Present: soft, Non-Tender. Absent: tenderness, distention, guarding, rebound, rigidity - Extremities Exam Extremities exam: Present: normal inspection, full ROM. Absent: tenderness, pedal edema - Expanded Upper Extremity Exam Shoulder exam: Present: normal inspection, full ROM Arm exam: Present: normal inspection, full ROM Elbow exam: Present: normal inspection, full ROM Forearm/Wrist exam: Present: normal inspection, full ROM Hand exam: Present: normal inspection, full ROM Vascular exam: Normal: capillary refill, radial pulse - Expanded Lower Extremity Exam Hip/Pelvis exam: Present: normal inspection, full ROM Upper leg exam: Present: normal inspection, full ROM Knee exam: Present: normal inspection, full ROM Lower leg exam: Present: normal inspection, full ROM Ankle exam: Present: normal inspection, full ROM Foot/toe exam: Present: normal inspection, full ROM Neurovascular/Tendon exam: Absent: motor deficit, sensory deficit, tendon deficit - Back Exam Back exam: Present: normal inspection, full ROM. Absent: tenderness - Neurological Exam Neurological exam: Present: alert, oriented X3 - Expanded Neurological Exam Patient oriented to: Present: person, place, time Speech: Present: fluid speech Cranial nerves: EOM function (II, III, IV, ): Normal, facial sensation (V): Normal, facial palsy (VII): Normal, gag reflex (IX): Normal, tongue deviation ( XII): Normal Cerebellar function: finger to nose: Normal Cerebellar function: normal vibratory/position Motor strength - LUE: 4/5 Motor strength - RUE: 4/5 Motor strength - LLE: 4/5 Motor strength - RLE: 4/5 Upper motor neuron exam: moshe neglect: Absent bilaterally, pronator drift: Absent bilaterally Sensory exam upper extremity: light touch: Normal, pin prick: Normal Sensory exam lower extremity: light touch: Normal, pin prick: Normal Coma Scale Eye Opening: Spontaneous Coma Scale Motor Response: Obeys Commands Coma Scale Verbal Response: Oriented Coma Scale Total: 15 - Psychiatric Psychiatric exam: Present: normal affect, normal mood - Skin Skin exam: Present: warm, dry, intact, normal color Course Course Narrative: we will do a cardio neuro workup on ashley and admit to medicine for r/o CVA due to these symptoms of imbalance and vison blurriness for a likley need for MRI. CT at this time to r/o bleed - Reevaluation(s) Reevaluation #1: updated patient on results. WE will admit ashley to medicine and started rocephin for UTI. Ashley is agreeable to plan. Time: 14:05 Vital Signs Temperature 97.7 F 11/19/16 12:19 Pulse Rate 80 11/19/16 12:19 Respiratory Rate 16 11/19/16 12:19 Blood Pressure 143/68 11/19/16 12:19 O2 Sat by Pulse Oximetry 97 11/19/16 12:19 Temperature 97.7 F 11/19/16 12:19 Pulse Rate 81 11/19/16 12:33 Respiratory Rate 18 11/19/16 12:33 Blood Pressure 146/72 11/19/16 12:33 O2 Sat by Pulse Oximetry 99 11/19/16 12:33 Oxygen Delivery Oxygen Delivery Room Air Weakness - Lab Data Result diagrams: 11/19/16 12:47 11/19/16 12:47 Lab Results 11/19/16 11/19/16 11/19/16 Range/Units 12:47 12:47 12:47 WBC 6.6 (4.3-11.1) K/mcL RBC 4.64 (3.82-4.97) M/mcL Hgb 11.8 (11.5-15.4) g/dL Hct 38.0 (35.3-44.9) % MCV 81.9 L (83.0-100.0) fL MCH 25.4 L (28.0-33.3) pg MCHC 31.1 L (31.6-35.5) g/dL RDW 15.8 H (11.5-14.5) % Plt Count 211 (140-400) K/mcL MPV 13.1 H (9.4-12.4) fL Immature Gran % 0.2 (0-4) % Seg Neutrophils % 56.0 % Lymphocytes % 33.3 % Monocytes % 7.5 % Eosinophils % 2.1 % Basophils % 0.9 % Neutrophils # 3.7 (1.6-8.9) K/mcL Lymphocytes # 2.2 (0.6-4.6) K/mcL Monocytes # 0.5 (0.0-1.3) K/mcL Eosinophils # 0.1 (0.0-0.6) K/mcL Basophils # 0.1 (0.0-0.2) K/mcL PT 22.3 H (9.4-12.1) Seconds INR 2.0 APTT 37.1 H (26.0-36.0) Seconds Sodium (136-145) mEq/L Potassium (3.5-4.5) mEq/L Chloride (98-109) mEq/L Carbon Dioxide (19-29) mEq/L BUN (7-20) mg/dL Creatinine (0.57-1.11) mg/dL Est GFR ( Amer) (> 60) Est GFR (Non-Af Amer) (> 60) BUN/Creatinine Ratio (6-26) Glucose (70-99) mg/dL Calculated Osmolality (280-300) Calcium (8.6-10.8) mg/dL Troponin I (0-0.03) ng/mL Lipase 31 (8-78) Units/L Urine Color (Yellow) Urine Clarity (Clear) Urine pH (5.0-8.0) pH Units Ur Specific [place] (1.010-1.025) Urine Protein (Neg-Trace) mg/dL Urine Glucose (UA) (Normal) mg/dL Urine Ketones (Negative) mg/dL Urine Blood (Negative) Urine Nitrite (Negative) Urine Bilirubin (Negative) Urine Urobilinogen (Normal) mg/dL Ur Leukocyte Esterase (Negative) Urine Microscopic RBC (0-3) per hpf Urine Microscopic WBC (0-3) per hpf Ur Squamous Epith Cells (None-Few) per lpf Urine Bacteria (None-Few) per hpf Hyaline Casts (None-Few) per lpf Ur Culture Indicated? (NO) 11/19/16 11/19/16 11/19/16 Range/Units 12:47 12:47 13:27 WBC (4.3-11.1) K/mcL RBC (3.82-4.97) M/mcL Hgb (11.5-15.4) g/dL Hct (35.3-44.9) % MCV (83.0-100.0) fL MCH (28.0-33.3) pg MCHC (31.6-35.5) g/dL RDW (11.5-14.5) % Plt Count (140-400) K/mcL MPV (9.4-12.4) fL Immature Gran % (0-4) % Seg Neutrophils % % Lymphocytes % % Monocytes % % Eosinophils % % Basophils % % Neutrophils # (1.6-8.9) K/mcL Lymphocytes # (0.6-4.6) K/mcL Monocytes # (0.0-1.3) K/mcL Eosinophils # (0.0-0.6) K/mcL Basophils # (0.0-0.2) K/mcL PT (9.4-12.1) Seconds INR APTT (26.0-36.0) Seconds Sodium 142 (136-145) mEq/L Potassium 4.5 (3.5-4.5) mEq/L Chloride 108 (98-109) mEq/L Carbon Dioxide 29 (19-29) mEq/L BUN 23 H (7-20) mg/dL Creatinine 1.52 H (0.57-1.11) mg/dL Est GFR ( Amer) 39 L (> 60) Est GFR (Non-Af Amer) 32 L (> 60) BUN/Creatinine Ratio 15 (6-26) Glucose 93 (70-99) mg/dL Calculated Osmolality 297 (280-300) Calcium 9.7 (8.6-10.8) mg/dL Troponin I 0.00 (0-0.03) ng/mL Lipase (8-78) Units/L Urine Color Yellow (Yellow) Urine Clarity Clear (Clear) Urine pH 7.0 (5.0-8.0) pH Units Ur Specific [place] 1.014 (1.010-1.025) Urine Protein Negative (Neg-Trace) mg/dL Urine Glucose (UA) Normal (Normal) mg/dL Urine Ketones Negative (Negative) mg/dL Urine Blood Negative (Negative) Urine Nitrite Positive A (Negative) Urine Bilirubin Negative (Negative) Urine Urobilinogen Normal (Normal) mg/dL Ur Leukocyte Esterase Small H (Negative) Urine Microscopic RBC 3-5 H (0-3) per hpf Urine Microscopic WBC 5-15 H (0-3) per hpf Ur Squamous Epith Cells Moderate H (None-Few) per lpf Urine Bacteria Many H (None-Few) per hpf Hyaline Casts None Seen (None-Few) per lpf Ur Culture Indicated? YES A (NO) - EKG Data EKG attestation: Yes I reviewed and interpreted this EKG. EKG results narrative: NSR with rate of 77. NO STEMI. normal intervals. no old ekg. 1308
[2016-11-19 13:03] LABS: Prothrombin Time 22.3 Seconds (9.4-12.1)
[2016-11-19 13:05] LABS: Activated Partial Thrombo Time 37.1 Seconds (26.0-36.0)
[2016-11-19 13:12] LABS: Calcium 9.7 mg/dL (8.6-10.8); Potassium 4.5 mEq/L (3.5-4.5)
[2016-11-19 13:40] LABS: Bilirubin,Urine Negative (Negative); Blood,Urine Negative (Negative); Clarity,Urine Clear (Clear); Color,Urine Yellow (Yellow); Glucose,Urine (UA) Normal (Normal); Ketones,Urine Negative (Negative); Leukocyte Esterase,Urine Small (Negative); Nitrite,Urine Positive (Negative); Protein,Urine Negative (Neg-Trace); Specific Gravity,Urine 1.014 (1.010-1.025); Urobilinogen,Urine Normal (Normal)
[2016-11-19 13:43] LABS: Bacteria,Urine Many per hpf (None-Few); Hyaline Casts,Urine None Seen per lpf (None-Few); Squamous Epithelial Cell,Urine Moderate per lpf (None-Few)
[2016-11-19] MEDS ORDERED: Naloxone 0.4 MG/ML INJ IVP PRN (15:48)
[2016-11-19] MEDS ORDERED: Ondansetron 4 MG/2 ML VIAL IVP PRN (15:53)
[2016-11-19] MEDS ORDERED: tiZANidine 4 MG TABLET PO PRN (16:05)
[2016-11-19] MEDS ORDERED: D5% in Water 1,000 ML IVC PRN (16:09)
[2016-11-19] MEDS ORDERED: Dextrose Gel 15 GM PO PRN ×2 (16:09)
[2016-11-19] MEDS ORDERED: *HR* Dextrose 50 % in Water (Syg) 50 ML SYRINGE IVP PRN (16:09)
--- NOTE | 2016-11-19 16:21 | Internal Med History&Physical ---
<LadariusanujaKobe boyd - Last Filed: 11/19/16 17:10> Date of Encounter: 11/19/16 Time of Encounter: 15:00 Assessment and Plan (1) UTI (urinary tract infection) Current visit: Yes Status: Acute Patient presents with suspected UTI based on initial U/A. Urine culture ordered in ED. IV ceftriaxone administered in the ED and will be continued at 1,000 mg daily. Follow-up labs ordered to monitor WBCs. Patient to be monitored for signs of increasing infection. Qualifiers: Urinary tract infection type: site unspecified Hematuria presence: without hematuria Qualified Code(s): N39.0 - Urinary tract infection, site not specified (2) Acute diarrhea Current visit: Yes Status: Acute Patient presents with history of acute diarrhea for the past seven days. She states that the diarrhea has been present with the dizziness, weakness, and pre- syncopal episodes. Will administer 2 mg. loperamide ONCE and monitor patient's I &O. Will consider adding scheduled doses if needed. (3) Dizziness Current visit: Yes Status: Acute Patient present with acute dizziness related to current pre-syncopal episodes. Patient will be placed as falls precautions/up with assist/bed rest with bedside commode with assist only due to current weakness, dizziness and pre- syncope. CT of the head shows no evidence of intracranial hemorrhage or mass effect and no acute intracranial abnormality. Remote infarct within the right occipital lobe and mild chronic white matter changes are again seen and are similar in appearance. MRI of the head/brain w/o contrast ordered. Previous carotid Doppler study of 08/30/15 shows some right proximal ICA with severe stenosis of 60-79% and left proximal ICA with moderate stenosis of 40-59%. Will order new bilateral carotid Doppler duplex imaging and consider consulting vascular surgery based on new Doppler results. (4) Weakness Current visit: Yes Status: Acute Patient present with acute weakness related to current pre-syncopal episodes. Patient will be placed as falls precautions/up with assist/bed rest with bedside commode with assist only due to current weakness, dizziness and pre- syncope. (5) Chronic kidney disease (CKD) Current visit: Yes Status: Chronic Patient presents with history of chronic kidney disease and current GFR of 32 on admission. Patient is receiving IV fluids of 0.9 NS at 80 mL/HR. Will continue to use IV fluids judiciously and monitor I&O and daily weight. Follow- up labs ordered. Qualifiers: Chronic kidney disease stage: stage 3 (moderate) Qualified Code(s): N18.3 - Chronic kidney disease, stage 3 (moderate) (6) Anticoagulated on Coumadin Current visit: Yes Status: Chronic Patient presents with current anticoagulation on Warfarin. Will continue patient 's Warfarin with pharmacy dosing and assess for unusual bleeding. (7) Hypertension Current visit: Yes Status: Chronic Patient presents with history of chronic HTN. Will monitor patient and vital signs and continue patient's lisinopril. Qualifiers: Hypertension type: essential hypertension Qualified Code(s): I10 - Essential (primary) hypertension (8) Type 2 diabetes mellitus Current visit: Yes Status: Chronic Patient presents with history of diabetes type 2 controlled with oral hyperglycemics. Will hold patient's oral medications and to blood glucose checks ACHS. Low-dose correction insulin dosing with hypoglycemic protocol ordered. A1c ordered. Qualifiers: Diabetes mellitus complication status: with kidney complications Diabetes mellitus complication detail: with chronic kidney disease Diabetes mellitus senior living insulin use: without senior living use Chronic kidney disease stage: stage 3 (moderate) Qualified Code(s): E11.22 - Type 2 diabetes mellitus with diabetic chronic kidney disease; N18.3 - Chronic kidney disease, stage 3 ( moderate) (9) History of transient ischemic attack (TIA) Current visit: Yes Status: Chronic Patient presents with history of TIAs which she states last occurred in July 2015. Patient is currently experiencing dizziness and weakness with pre- syncopal episodes. CT of the head shows no evidence of intracranial hemorrhage or mass effect and no acute intracranial abnormality. Remote infarct within the right occipital lobe and mild chronic white matter changes are again seen and are similar in appearance. MRI of the head/brain w/o contrast ordered. (10) DVT prophylaxis Current visit: Yes Status: Acute Patient to be placed on DVT prophylaxis due to current admission protocol and bed rest status. Will continue patient's Warfarin with pharmacy to dose. Will monitor patient for signs of bleeding and INR/APTT in follow-up labs. Internal Medicine - H&P: HPI Chief complaint: Dizziness/Pre-syncope/Weakness Admitted From: Emergency Dept Plans for Post Hospital Care: Home History of present illness: Ms. Blair is a 86 year old female who presents from the ED with chief complaint of dizziness, weakness, and pre-syncope for the past week. She states that she has also had diarrhea for the same time period. She reports episodes come on with standing so she sits down to avoid fainting or falling. She also reports vision changes with the episodes where things become blurry when she tries to focus on them. Patient denies recent illness, fever, chills, nausea, vomiting, abdominal pain, chest pain, shortness of breath, palpitations, unusual bleeding in the urine or stool, cough, or dyspnea. Patient has a history of TIAs with the last known episode in July 2015. She also has a history of IA in 1969 with no stent placements. Patient's other medical history includes diabetes controlled with oral medications, renal disease (current GFR is 32 on admission) , HTN, and renal calculi. Ms. Aaron's initial U/A was indicative for a urine culture which was ordered in the ED with the administration of IV ceftriaxone. Patient is at moderate risk for further morbidity based on possible UTI and current symptoms and risk factors and will be placed as inpatient with orders for MRI of the head/brain w/o contrast, GI panel to assess for issues related to her diarrhea, continuation of IV ceftriaxone, IV 0.9 NS at 80 mL/HR, orthostatic vital signs and BPs, and falls/safety precautions. Patient to be monitored closely for signs of increasing infection or neurological changes. Time spent with patient > 40 minutes. Past Med Surg Social Fam HX - Past Medical History Source: patient Medical history: diabetes, renal disease, myocardial infarction, hypertension, TIA, kidney stones Psychiatric history: no psych history - Past Surgical History Surgical History: appendectomy, cholecystectomy, hysterectomy, orthopedic, other (back surgery, right soulder, left rotator cuff surgery, ) - Social History Smoking Status: Never smoker Smokeless Tobacco Status: No Alcohol use: none Drug use: none Current living situation: Home Activity Level: Independent ambulation Recent Out of Country Travel Within the Last 8 Weeks: No Exposure or Possible Exposure to Illness During Travel: No - Family History Mother Race: Family Member Ethnicity: Non- Living Status: Age at : 65 Cause of : IA Hx Family Cardiac Disorders: Yes (IA) Father Race: Family Member Ethnicity: Non- Living Status: Age at : 65 Cause of : CHF Hx Family Cardiac Disorders: Yes (CHF) Brother Race: Family Member Ethnicity: Non- Living Status: Age at : 62 Cause of : Cancer Hx Family Cancer: Yes Sister Race: Family Member Ethnicity: Non- Living Status: Age at : 85 Cause of : COPD Hx Family Respiratory Disorders: Yes (COPD) Internal Medicine - H&P: Meds Atorvastatin [Lipitor] 40 mg PO HS 09/09/16 [History] Ergocalciferol (VITAMIN D2) [Vitamin D2] 50,000 unit PO WALSH 09/09/16 [History] Gabapentin [Neurontin] 600 mg PO TID 09/09/16 [History] GlipiZIDE XL (24 HR) [Glucotrol XL] 2.5 mg PO QAM 09/09/16 [History] Lisinopril [Zestril] 20 mg PO BID 09/09/16 [History] Tizanidine HCl 2 mg PO BID PRN 09/09/16 [History] Warfarin [Coumadin] 5 mg PO SUTUTHSA 09/09/16 [History] Warfarin [Coumadin] 7.5 mg PO MOWEFR 09/09/16 [History] Allergies acetaminophen [From Vicodin] Adverse Reaction (Verified 01/02/15 09:31) See Comments Cyclobenzaprine [From Flexeril] Adverse Reaction (Verified 01/02/15 09:31) Drowsy hydrocodone [From Vicodin] Adverse Reaction (Verified 01/02/15 09:31) See Comments Hydromorphone [From Dilaudid] Adverse Reaction (Verified 01/02/15 09:31) Drowsy Oxycodone Adverse Reaction (Verified 01/02/15 09:31) Dizziness All Systems PM: A 10-system review of systems was performed and is negative for pertinent findings except as documented above in the HPI. - Constitutional Constitutional: as per HPI, weakness, no chills, no fever(s), no night sweats - EENT Eyes: as per HPI, blurry vision, change in vision Ears: no ear discharge, no ear pain, no tinnitus Nose, mouth and throat: no dysphagia, no nasal discharge, no neck pain, no sore throat - Breasts Breasts: as per HPI - Cardiovascular Cardiovascular ROS IM: as per HPI, lightheadedness, other (Pre-syncope), no chest pain, no diaphoresis, no dyspnea, no palpitations, no syncope - Respiratory Respiratory: no cough, no dyspnea, no wheezing, no excessive phlegm production - Gastrointestinal Gastrointestinal: as per HPI, diarrhea, no abdominal pain, no hematemesis, no hematochezia, no melena, no nausea, no vomiting - Genitourinary Genitourinary: no change in urinary stream, no dysuria, no flank pain, no hematuria Menstruation: as per HPI, post hysterectomy - Musculoskeletal Musculoskeletal ROS IM: no numbness, no tingling - Integumentary Integumentary IM: no rash, no unusual bruising - Neurological Neurological ROS: as per HPI, disequilibrium, weakness, no confusion, no convulsions, no focal weakness, no numbness, no tingling, no tremor(s) - Psychiatric Psychiatric: as per HPI - Endocrine Endocrine IM: as per HPI - Hematologic/Lymphatic Hematologic/Lymphatic: no easy bruising - Allergic/Immunologic Allergic/Immunologic: as per HPI - Constitutional Vitals: Temp Pulse Resp BP Pulse Ox 97.7 F 66 18 153/73 99 11/19/16 12:19 11/19/16 14:00 11/19/16 15:18 11/19/16 15:18 11/19/16 14:00 General appearance: Present: cooperative, A&O X 3, pleasant, no acute distress, obese, answers questions appropriately - Head Head exam: Present: atraumatic, normocephalic - Eye Eye exam: Present: PERRL, conjuntiva pink, sclera anicteric Pupils: Present: PERRL - ENT ENT exam: Present: normal exam, normal external ear exam - Neck Neck exam general surgery: Present: supple, trachea midline. Absent: lymphadenopathy - Respiratory Respiratory exam: Present: CTAB. Absent: accessory muscle use, rales, rhonchi, wheezes - Cardiovascular Cardiovascular exam: Present: RRR, +S1, +S2. Absent: diastolic murmur, gallop, rubs, systolic murmur - GI/Abdominal GI/Abdominal exam: Present: normal bowel sounds, soft, no peritoneal signs. Absent: distended, tenderness - Rectal Rectal exam: Present: deferred - Additional comments: exam deferred. - Extremities Exam Extremities exam: Present: pedal edema, warm, radial pulses palpable and symmetrical. Absent: calf tenderness, cyanotic - Back Exam Back exam: Present: normal inspection - Neurological Exam Neurological exam: Present: CN II-XII intact, oriented X3, no focal deficits. Absent: pronater drift, facial droop, speech deficit - Psychiatric Psychiatric exam: Present: normal affect, normal mood - Skin Skin exam: Present: dry, intact Internal Med - H&P Results - Labs CBC & Chem 7: 11/19/16 12:47 11/19/16 12:47 <Girish Corley - Last Filed: 11/19/16 18:51> Date of Encounter: 11/19/16 Internal Medicine - H&P: HPI History of present illness: Ms. Blair is a 86 year old female All Systems PM: A 10-system review of systems was performed and is negative for pertinent findings except as documented above in the HPI. - Constitutional Vitals: Temp Pulse Resp BP Pulse Ox 97.7 F 77 16 149/68 93 11/19/16 18:34 11/19/16 18:34 11/19/16 18:34 11/19/16 18:34 11/19/16 18:34 Internal Med - H&P Results - Labs CBC & Chem 7: 11/19/16 12:47 11/19/16 12:47 - Attending Attestation I examined this patient and my medical decision-making was reviewed with the WREATH MACHINE OPERATOR. I agree with the documented findings, disposition and treatment plan as described
[2016-11-19] MEDS ORDERED: Warfarin perPT PO PRN (18:00)
[2016-11-19] MEDS: Insulin LISPRO 300 UNITS/3 ML VIAL SQ SCH ×2 (19:04→22:30)
[2016-11-19] MEDS: 0.9 % Sodium Chloride 1,000 ML IVC SCH (19:29)
[2016-11-19] MEDS: Gabapentin 300 MG CAPSULE PO SCH (22:30)
[2016-11-19] MEDS: Lisinopril 20 MG TABLET PO SCH (22:31)
[2016-11-20 04:51] LABS: Basophils # 0.1 K/mcL (0.0-0.2); Basophils % 0.8 %; Eosinophils # 0.2 K/mcL (0.0-0.6); Eosinophils % 2.7 %; Hematocrit 36.5 % (35.3-44.9); Hemoglobin 10.9 g/dL (11.5-15.4); Immature Granulocytes % 0.3 % (0-4); Lymphocytes # 2.2 K/mcL (0.6-4.6); Lymphocytes % 35.6 %; Mean Corpuscular HGB Conc 29.9 g/dL (31.6-35.5); Mean Corpuscular Hemoglobin 24.6 pg (28.0-33.3); Mean Corpuscular Volume 82.4 fL (83.0-100.0); Mean Platelet Volume 13.6 fL (9.4-12.4); Monocytes # 0.6 K/mcL (0.0-1.3); Monocytes % 9.2 %; Neutrophils # 3.2 K/mcL (1.6-8.9); Platelet Count 188 K/mcL (140-400); Red Blood Count 4.43 M/mcL (3.82-4.97); Red Cell Distribution Width 15.6 % (11.5-14.5); Segmented Neutrophils % 51.4 %
[2016-11-20 05:14] LABS: Calcium 9.2 mg/dL (8.6-10.8); Chol/HDL Ratio 3.2 (0-4.9); Magnesium 1.9 mg/dL (1.6-2.6); Phosphorous 3.3 mg/dL (2.3-4.7); Potassium 4.7 mEq/L (3.5-4.5)
[2016-11-20 05:34] LABS: INR 2.2
[2016-11-20 05:36] LABS: Activated Partial Thrombo Time 37.8 Seconds (26.0-36.0)
[2016-11-20 05:49] LABS: Hemoglobin A1C 5.8 %
[2016-11-20] MEDS: Lisinopril 20 MG TABLET PO SCH (08:59)
[2016-11-20] MEDS: Gabapentin 300 MG CAPSULE PO SCH ×3 (08:59→20:44)
[2016-11-20] MEDS: Pantoprazole 40 MG VIAL IVP SCH (08:59)
[2016-11-20] MEDS: Insulin LISPRO 300 UNITS/3 ML VIAL SQ SCH ×4 (09:17→20:38)
[2016-11-20] MEDS: 0.9 % Sodium Chloride 1,000 ML IVC SCH ×2 (12:29→18:08)
--- NOTE | 2016-11-20 15:12 | Internal Med Progress Note ---
Date of Encounter: 11/20/16 Time of Encounter: 13:00 - Assessment and plan (1) UTI (urinary tract infection) Current Visit: Yes Status: Acute Assessment and plan: Urine cx - E. Coli cont empirical abx concerning for recurrent UTI will obtain PVR scan x once also ordered retro peritoneal KUB US to r/o any urinary retention cot close monitoring Qualifiers: Urinary tract infection type: site unspecified Hematuria presence: without hematuria Qualified Code(s): N39.0 - Urinary tract infection, site not specified (2) Weakness Current Visit: Yes Status: Acute Assessment and plan: due to UTI However concerned for any post circulation CVA. all her work up came back as negative MRI of brain - negative for CVA PT / OT eval ordered (3) Hypertension Current Visit: Yes Status: Chronic Assessment and plan: resumed home meds Qualifiers: Hypertension type: essential hypertension Qualified Code(s): I10 - Essential (primary) hypertension (4) Acute kidney injury Current Visit: Yes Status: Acute Assessment and plan: Improving with hydration U/S KUB ordered (5) Type 2 diabetes mellitus Current Visit: Yes Status: Chronic Assessment and plan: resumed home regimen ISS Qualifiers: Diabetes mellitus complication status: with kidney complications Diabetes mellitus complication detail: with chronic kidney disease Diabetes mellitus terminal clerk insulin use: without care home use Chronic kidney disease stage: stage 3 (moderate) Qualified Code(s): E11.22 - Type 2 diabetes mellitus with diabetic chronic kidney disease; N18.3 - Chronic kidney disease, stage 3 ( moderate) (6) Paroxysmal a-fib Current Visit: No Status: Chronic Assessment and plan: rate controlled with out any medication cont Coumadin for anticoag - Subjective Interval history: Ms. Blair is a 86 year old female with known PMH of [place] in 1969 with no stent placements. Patient's other medical history includes diabetes controlled with oral medications, renal disease (current GFR is 32 on admission), HTN, and renal calculi was preseted to ER y/d c/o generalized weakness, dizziness and pres syncopal episode. Pt is more alert, awake, O x 3. Denied any CP / SOB. Stated feeling little better today. - Constitutional Vitals: Temp Pulse Resp BP Pulse Ox 97.6 F 68 16 148/74 98 11/20/16 11:22 11/20/16 11:22 11/20/16 11:22 11/20/16 11:22 11/20/16 11:22 General appearance: Present: cooperative, A&O X 3, pleasant, no acute distress, obese, answers questions appropriately - Head Head exam: Present: atraumatic, normal inspection - Neck Neck exam general surgery: Present: supple - Respiratory Respiratory exam: Present: decreased breath sounds. Absent: rales, respiratory distress, rhonchi, wheezes - Cardiovascular Cardiovascular exam: Present: RRR, +S1, +S2. Absent: systolic murmur - GI/Abdominal GI/Abdominal exam: Present: normal bowel sounds, soft. Absent: rebound, rigid, splenomegaly - Extremities Exam Extremities exam: Absent: calf tenderness, pedal edema, tenderness - Neurological Exam Neurological exam: Present: alert, oriented X3 - Psychiatric Psychiatric exam: Present: normal affect, normal mood Internal Medicine: Result - Labs CBC & Chem 7: 11/20/16 03:09 11/20/16 03:09 Labs: Short CBC 11/20/16 Range/Units 03:09 WBC 6.3 (4.3-11.1) K/mcL Hgb 10.9 L (11.5-15.4) g/dL Hct 36.5 (35.3-44.9) % Plt Count 188 (140-400) K/mcL Neutrophils # 3.2 (1.6-8.9) K/mcL BMP 11/20/16 03:09 Sodium 143 Potassium 4.7 H Chloride 111 H Carbon Dioxide 26 BUN 21 H Creatinine 1.23 H Glucose 88 Calcium 9.2 - ABG Interpretation ABG results: PT/INR, D-dimer PT 24.0 Seconds (9.4-12.1) H 11/20/16 03:09 - Impressions Impressions Retroperitoneum Ultrasound 11/20/16 14:00 IMPRESSION: The right kidney is atrophic and demonstrates diffuse increased echogenicity consistent with medical renal disease. Unremarkable sonographic appearance of the left kidney. There is a 1.8 cm right renal cyst. D/ / Gay Venegas MD / Gay Venegas MD Interpreting Provider: Gay Venegas MD Consult Discharge Plan - Plan Referrals: Karel Nick MD [Primary Care Provider] - 11/26/16 9:45 am
--- NOTE | 2016-11-20 15:26 | Electrocardiograph Report ---
[place] [id number] Test Date: 2016-11-19 Pat Name: Jillian Blair Department: 102 Room: 3B11 Gender: F Radiology Assistant: [facility] : 1930 Requested By: Kim Bah Order Number: [id number] Reading MD: Sheldon Song Measurements Intervals [place] Rate: 77 P: 25 CA: 171 QRS: -1 QRSD: 105 T: 31 QT: 370 QTc: 401 Interpretive Statements SINUS RHYTHM Electronically Signed On 11-20-2016 15:24:35 EDT by Sheldon Song
[2016-11-20] MEDS ORDERED: *HR* Warfarin 5 MG TABLET PO SCH (18:00)
[2016-11-21 07:25] LABS: INR 1.9; Prothrombin Time 20.8 Seconds (9.4-12.1)
[2016-11-21] MEDS: Insulin LISPRO 300 UNITS/3 ML VIAL SQ SCH ×2 (08:27→11:30)
[2016-11-21] MEDS: Gabapentin 300 MG CAPSULE PO SCH (08:27)
[2016-11-21] MEDS: Pantoprazole 40 MG VIAL IVP SCH (08:27)
[2016-11-21] MEDS ORDERED: Lisinopril 20 MG TABLET PO SCH (09:00)
[2016-11-21 14:59] VITALS: BP 153/75
--- NOTE | 2016-11-21 15:30 | Carotid Imaging Report ---
Carotid Duplex Patient Name:Jillian Blair Order Number:[id number] Procedure Date:11/19/2016 Date:1930ge:86 yrs Gender:Female Rt.BP:149 / 68 mmHgHeart Rate: Location:[facility] Room #: 3B11 Merchandising Specialist:Chantel Bryson, RDANAI Referring MD:Kobe Barajas, GALLERY OR MUSEUM ATTENDANT juice bar team member:Karel Nick MD Reading MD:Sal Yanez MD , FACS Primary Indications:Pre-syncope Risk Factors Yes/No Hypertension Yes Diabetes Yes Hx of TIA Yes Impressions: Findings: Bilateral proximal ICA have a moderate, 40-59% stenosis. Recommendations: Preliminary noted in pt EMR. Findings Carotid Duplex: Right: The right proximal common carotid artery has a PSV of 104 cm/s and a EDV of 15 cm/s. The right mid common carotid artery has a PSV of 82 cm/s and a EDV of 20 cm/s. The right distal common carotid artery has a PSV of 90 cm/s and a EDV of 21 cm/s. There is nonstenotic plaque in the right bifurcation with a PSV of 75 cm/s and a EDV of 17 cm/s. There is nonstenotic plaque in the right proximal internal carotid artery with a PSV of 159 cm/s and a EDV of 32 cm/s. The right mid internal carotid artery has a PSV of 117 cm/s and a EDV of 30 cm/s. The right distal internal carotid artery has a PSV of 105 cm/s and a EDV of 35 cm/s. The right eca has a PSV of 121 cm/s and a EDV of 7 cm/s. The right vertebral artery has a PSV of 54 cm/s and a EDV of 17 cm/s. There is antegrade spectral Doppler flow patterns. Left: The left proximal common carotid artery has a PSV of 92 cm/s and a EDV of 18 cm/s. The left mid common carotid artery has a PSV of 85 cm/s and a EDV of 14 cm/s. The left distal common carotid artery has a PSV of 83 cm/s and a EDV of 14 cm/s. There is nonstenotic plaque in the left bifurcation with a PSV of 135 cm/s and a EDV of 30 cm/s. There is 40-59% stenosis in the left proximal internal carotid artery with a PSV of 137 cm/s and a EDV of 26 cm/s. The left mid internal carotid artery has a PSV of 111 cm/s and a EDV of 31 cm/s. The left eca has a PSV of 111 cm/s and a EDV of 9 cm/s. The left vertebral artery has a PSV of 50 cm/s and a EDV of 16 cm/s. There is antegrade spectral Doppler flow patterns. Prior Study: No significant change compared to prior study dated: 08/20/2015. Carotid Results Right PSV EDV Assessment Proximal CCA 104 15 Mid CCA 82 20 Distal CCA 90 21 Bifurcation 75 17 Non Stenotic Plaque Proximal ICA 159 32 Non Stenotic Plaque Mid ICA 117 30 Distal ICA 105 35 ECA 121 7 Vertebral Artery 54 17 Antegrade Flow Left PSV EDV Assessment Proximal CCA 92 18 Mid CCA 85 14 Distal CCA 83 14 Bifurcation 135 30 Non Stenotic Plaque Proximal ICA 137 26 40-59% stenosis Mid ICA 111 31 Distal ICA 123 37 ECA 111 9 Vertebral Artery 50 16 Antegrade Flow Ratio's Right ICA/CCA Ratio: 1.94 ICA/CCA Values: 159/82 Left ICA/CCA Ratio: 1.61 ICA/CCA Values: 137/85 Updated by Sal Yanez MD, FACS on 11/21/2016 3:25:01 PM Sal Yanez MD electronically signed on 11/21/2016 3:25:36 PM with status of Final
--- NOTE | 2016-11-21 15:50 | Discharge Summary ---
Date of Encounter: 11/21/16 Time of Encounter: 15:46 - Discharge Diagnosis (1) UTI (urinary tract infection) Priority: Primary Status: Acute Qualifiers: Urinary tract infection type: site unspecified Hematuria presence: without hematuria Qualified Code(s): N39.0 - Urinary tract infection, site not specified (2) Weakness Priority: Primary Status: Acute (3) Hypertension Priority: Secondary Status: Chronic Qualifiers: Hypertension type: essential hypertension Qualified Code(s): I10 - Essential (primary) hypertension (4) Acute kidney injury Priority: Secondary Status: Acute (5) Type 2 diabetes mellitus Priority: Secondary Status: Chronic Qualifiers: Diabetes mellitus complication status: with kidney complications Diabetes mellitus complication detail: with chronic kidney disease Diabetes mellitus assistant terminal manager insulin use: without assistant terminal manager use Chronic kidney disease stage: stage 3 (moderate) Qualified Code(s): E11.22 - Type 2 diabetes mellitus with diabetic chronic kidney disease; N18.3 - Chronic kidney disease, stage 3 ( moderate) (6) Paroxysmal a-fib Priority: Secondary Status: Chronic - Discharge Medications Prescriptions: Cephalexin [Keflex] 500 mg PO TID #9 capsule Home Medications: Atorvastatin [Lipitor] 40 mg PO HS 09/09/16 [History] Ergocalciferol (VITAMIN D2) [Vitamin D2] 50,000 unit PO WALSH 09/09/16 [History] Gabapentin [Neurontin] 600 mg PO TID 09/09/16 [History] GlipiZIDE XL (24 HR) [Glucotrol XL] 2.5 mg PO QAM 09/09/16 [History] Lisinopril [Zestril] 20 mg PO BID 09/09/16 [History] Tizanidine HCl 2 mg PO BID PRN 09/09/16 [History] Warfarin [Coumadin] 5 mg PO SUTUTHSA 09/09/16 [History] Warfarin [Coumadin] 7.5 mg PO MOWEFR 09/09/16 [History] Cephalexin [Keflex] 500 mg PO TID #9 capsule 11/21/16 [Rx] Allergies/Adverse Reactions: Allergies acetaminophen [From Vicodin] Adverse Reaction (Verified 01/02/15 09:31) See Comments Cyclobenzaprine [From Flexeril] Adverse Reaction (Verified 01/02/15 09:31) Drowsy hydrocodone [From Vicodin] Adverse Reaction (Verified 01/02/15 09:31) See Comments Hydromorphone [From Dilaudid] Adverse Reaction (Verified 01/02/15 09:31) Drowsy Oxycodone Adverse Reaction (Verified 01/02/15 09:31) Dizziness Procedures/tests Complete & Pending: Procedures Performed prior 72 hours Category Date Time Status US retroperitoneal limited [US] Routine Exams 11/20/16 14:00 Completed EV carotid duplex imaging BI Routine Y 11/19/16 17:04 Completed Date of admission: 11/19/16 16:07 Primary care physician: Karel Nick MD Consults: 11/20/16 13:39 Consult to Physical Therapy [CONS] Routine Comment: Evaluate, develop and implement POC Reason for Consult: history of falls 11/20/16 13:40 Consult to Occupational Therapy [CONS] Routine Comment: Evaluate, develop and implement POC Reason for Consult: history of falls, pt being discharged - Patient Status Disposition: Home, Self-Care Condition: Good Overall status at discharge: patient is back to baseline - Discharge Instructions Follow Up With: Karel Nick MD [Primary Care Provider] - 11/26/16 9:45 am Additional Instructions: Keep your regular appointment with Client Care Representative Dr. Laurent - Diet and Activity Activity: increase activity as tolerated Diet: low salt diet Hospital course: Ms. Blair is a 86 year old female with known PMH of [place] in 1969 with no stent placements. Patient's other medical history includes diabetes controlled with oral medications, renal disease (current GFR is 32 on admission), HTN, and renal calculi was presented to ER y/d c/o generalized weakness, dizziness and pre syncopal episode. Pt ws admitted here for acute kidney injury with CKD-2 and acute UTI. She was started on empirical abx with Rocephin. There was little concern for any posterior circulation CVA. all her work up came back as negative including MRI of brain - negative for CVA. her 2 D Ehco showed normal LVEF and mild diastolic dysfucntion. 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 Her Urine cx came back as positive for E. Coli, gonzalez sensitive. Since she is on Coumadin, I discharged her home on Keflex 500mg TID x 3 more days. - Time Spent with Patient Total time spent providing and/or coordinating discharge services: - Constitutional Vitals: Temp Pulse Resp BP Pulse Ox 97.6 F 67 16 153/75 98 11/21/16 14:58 11/21/16 14:58 11/21/16 14:58 11/21/16 14:58 11/21/16 14:58 General appearance: Present: cooperative, A&O X 3, pleasant, no acute distress, obese, answers questions appropriately - Head Head exam: Present: atraumatic, normal inspection - Respiratory Respiratory exam: Present: decreased breath sounds. Absent: rales, respiratory distress, rhonchi, wheezes - Cardiovascular Cardiovascular exam: Present: RRR, +S1, +S2. Absent: systolic murmur - GI/Abdominal GI/Abdominal exam: Present: normal bowel sounds, soft. Absent: rebound, rigid, tenderness - Extremities Exam Extremities exam: Absent: calf tenderness, pedal edema, tenderness - Neurological Exam Neurological exam: Present: alert, oriented X3 - Psychiatric Psychiatric exam: Present: normal affect, normal mood
[2016-11-21] MEDS ORDERED: *HR* Warfarin 7.5 MG TABLET PO SCH (18:00)
== END 2016-11-21 16:58 | disposition home or self-care (01) | DRG 690 ==
LOC: EMEROO 12:17 → 3BNU 12:17
PROVIDERS: ADMIT Nurse Practitioner Family; ATTEND Nurse Practitioner Family

== ENCOUNTER 2018-01-28 11:36 | Inpatient (IN) ==
[2018-01-28] MEDS ORDERED: Ketamine *HR* 15 MG in 0.9 % Sodium Chloride 100 ML IVPB ONE (11:50)
[2018-01-28] MEDS ORDERED: *HR* FentaNYL (PF) 100 MCG/2 ML VIAL IVP ONE (11:50)
[2018-01-28] MEDS ORDERED: Ondansetron 4 MG/2 ML VIAL IVP PRN (11:52)
--- NOTE | 2018-01-28 11:57 | Emergency Department Note ---
Disposition Clinical Impression: Hip fracture Qualifiers: Encounter type: initial encounter Fracture type: closed Laterality: left Qualified Code(s): S72.002A - Fracture of unspecified part of neck of left femur, initial encounter for closed fracture Head injury Qualifiers: Encounter type: initial encounter Qualified Code(s): S09.90XA - Unspecified injury of head, initial encounter Disposition: Still a Patient Condition: Fair Forms: ED Satisfaction Letter General Adult HPI - General Chief complaint: ED Head Injury Stated complaint: fall Time Seen by Provider: 01/28/18 11:47 - History of Present Illness HPI Narrative: Patient presents after a fall in shower, she did not get dizzy or pass out, says she lost her balance and fell. Struck her head, did not lose consciousness. Complains mainly of pain to her left hip, also of pain further down the left leg and to her head on the area where she struck her head. She is on Coumadin for "an irregular heartbeat." She cannot recall her last INR check was. She has no numbness or weakness in the extremities. Denies chest pain, shortness of breath or abdominal pain. Denies nausea or vomiting. Denies neck or back pain. Last tetanus was less than 5 years ago. - Related Data Home Medications Medication Instructions Recorded Confirmed Atorvastatin [Lipitor] 40 mg PO HS 09/09/16 04/14/17 Ergocalciferol (VITAMIN D2) 50,000 unit PO WALSH 09/09/16 04/14/17 [Vitamin D2] Gabapentin [Neurontin] 600 mg PO TID 09/09/16 04/14/17 GlipiZIDE XL (24 HR) [Glucotrol XL] 2.5 mg PO QAM 09/09/16 04/14/17 Lisinopril [Zestril] 20 mg PO BID 09/09/16 04/14/17 Tizanidine HCl 2 mg PO BID PRN 09/09/16 04/14/17 Warfarin [Coumadin] 5 mg PO SUTUTHSA 09/09/16 04/14/17 Warfarin [Coumadin] 7.5 mg PO MOWEFR 09/09/16 04/14/17 diazePAM [Valium] 5 mg PO DAILY PRN 04/14/17 04/14/17 Previous Rx's Medication Instructions Recorded amLODIPine [Norvasc] 5 mg PO DAILY #30 tablet 04/17/17 Allergies Allergy/AdvReac Type Severity Reaction Status Date / Time acetaminophen [From Vicodin] AdvReac See Verified 01/02/15 09:31 Comments Cyclobenzaprine AdvReac Drowsy Verified 01/02/15 09:31 [From Flexeril] hydrocodone [From Vicodin] AdvReac See Verified 01/02/15 09:31 Comments Hydromorphone [From Dilaudid] AdvReac Drowsy Verified 01/02/15 09:31 Oxycodone AdvReac Dizziness Verified 01/02/15 09:31 All systems ED: reviewed and negative except as stated. Past Medical History - Past Medical History Medical history: Reports: diabetes, renal disease, myocardial infarction, hypertension, TIA, kidney stones Surgical history: Reports: appendectomy, cholecystectomy, hysterectomy, orthopedic, other Psychiatric history: Reports: no psych history ASSISTANT AUDITOR history: Reports: no ASSISTANT AUDITOR history - Social History Smoking Status: Never smoker Smokeless Tobacco Status: No Alcohol use: Reports: none Drug use: Reports: none Physical Exam Vital signs noted, please see nurses notes. General: Well-developed, well-nourished elderly patient lying in bed who appears non-toxic. Head: Normocephalic, there is a small palpable scalp hematoma in the left o ccipital parietal region without depressed skull fragments, no signs of basilar skull fracture. Eyes: No ocular trauma. No proptosis. Extraocular motions intact. ENT: No facial or dental trauma. Neck: No midline tenderness, no stepoff or crepitus. Back: No midline tenderness, no stepoff or crepitus. Chest: No crepitus or ecchymosis. No tenderness. Heart: Regular rate and rhythm. Lungs: Normal respiratory pattern without respiratory distress. Lungs clear to auscultation bilaterally. Abdomen: Soft, non-tender, non-distended, no guarding or peritoneal signs. Extremities: No deformity, no bony tenderness to palpation x 3. No pain with passive ranging of all joints in the extremities x 3. Examination of the left lower extremity reveals a leg that is shortened and held in external rotation consistent with hip fracture. She is also tender in the femur as well as the knee. Surgical scars noted over the left knee. She is tender over the left tib-fib with a small superficial laceration over the tib-fib that looks amenable to Steri-Strips. She has tenderness at the posterior tip of the lateral malleolus on the left. She also has tenderness of the base of the fifth metatarsal on the left foot. No calcaneal tenderness. No deformity is noted to left lower extremity other than to the hip. 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 Neurologic: Awake, alert, oriented x 3 (unable to tell me the month and year, oriented to person, place and current events) with normal speech, GCS 14. Pupils equal, round, reactive to light. Moves all extremities with 5/5 strength, light touch sensation normal and symmetrical in all extremities. No clinical evidence of intoxication. No altered level of alertness. No lateralizeing signs. Psychiatric: Normal mood and affect. Skin: Warm and dry, no lacerations requiring sutures or charlene. Course Vital Signs Temperature 97.4 F L 01/28/18 11:49 Pulse Rate 81 01/28/18 11:49 Respiratory Rate 16 01/28/18 11:49 Blood Pressure 201/85 01/28/18 11:49 O2 Sat by Pulse Oximetry 100 01/28/18 11:49 Temperature 97.4 F L 01/28/18 11:49 Pulse Rate 81 01/28/18 11:49 Respiratory Rate 16 01/28/18 11:49 Blood Pressure 201/85 01/28/18 11:49 O2 Sat by Pulse Oximetry 100 01/28/18 11:49 Oxygen Delivery Oxygen Delivery Room Air Medical Decision Making - [facility] Narrative Medical decision making narrative: Patient clinically has a hip fracture. Analgesia was ordered as were multiple studies. Since her mental status is not completely normal, I cannot clinically clear her C-spine. C-spine CT was ordered in addition to the plain films of the left lower extremity and a CT of the head. Preoperative labs and studies were ordered as well. At the time of dictation, she is having her radiologic studies performed. The patient will be checked out to Dr. Jackman at change of shift.
[2018-01-28 13:44] LABS: Hemoglobin 11.9 g/dL (11.5-15.4); Mean Corpuscular HGB Conc 31.3 g/dL (31.6-35.5); Mean Corpuscular Hemoglobin 25.5 pg (28.0-33.3); Mean Corpuscular Volume 81.5 fL (83.0-100.0); Mean Platelet Volume 13.4 fL (9.4-12.4); Platelet Count 184 K/mcL (140-400); Red Blood Count 4.66 M/mcL (3.82-4.97); Red Cell Distribution Width 14.3 % (11.5-14.5)
[2018-01-28] MEDS ORDERED: *HR* Morphine 2 MG/ML SYRINGE IVP ONE ×2 (13:44→15:31)
[2018-01-28 13:52] LABS: INR 2.5; Prothrombin Time 28.1 Seconds (9.4-12.1)
--- NOTE | 2018-01-28 14:49 | Emergency Department Note ---
Disposition Clinical Impression: Knee fracture, left Head injury Qualifiers: Encounter type: initial encounter Qualified Code(s): S09.90XA - Unspecified injury of head, initial encounter Disposition: Admitted As Inpatient Condition: Fair General Adult HPI - General Chief complaint: ED Head Injury Stated complaint: FALL Time Seen by Provider: 01/28/18 11:47 Source: patient, family, EMS Limitations: no limitations - History of Present Illness Pain Scale: 3 - Related Data Home Medications Medication Instructions Recorded Confirmed Atorvastatin [Lipitor] 40 mg PO HS 09/09/16 01/28/18 Gabapentin [Neurontin] 600 mg PO TID 09/09/16 01/28/18 Lisinopril [Zestril] 20 mg PO BID 09/09/16 01/28/18 Warfarin [Coumadin] 5 mg PO SUTUTHSA 09/09/16 01/28/18 Warfarin [Coumadin] 7.5 mg PO MOWEFR 09/09/16 01/28/18 Allergies Allergy/AdvReac Type Severity Reaction Status Date / Time acetaminophen [From Vicodin] AdvReac See Verified 01/02/15 09:31 Comments Cyclobenzaprine AdvReac Drowsy Verified 01/02/15 09:31 [From Flexeril] hydrocodone [From Vicodin] AdvReac See Verified 01/02/15 09:31 Comments Hydromorphone [From Dilaudid] AdvReac Drowsy Verified 01/02/15 09:31 Oxycodone AdvReac Dizziness Verified 01/02/15 09:31 Past Medical History - Past Medical History Medical history: Reports: diabetes, renal disease, myocardial infarction, hypert ension, TIA, kidney stones Surgical history: Reports: appendectomy, cholecystectomy, hysterectomy, orthopedic, other Psychiatric history: Reports: no psych history COFFEE ATTENDANT history: Reports: no COFFEE ATTENDANT history - Social History Smoking Status: Never smoker Smokeless Tobacco Status: No Alcohol use: Reports: none Drug use: Reports: none Physical Exam - General Limitations: no limitations General appearance: alert Course Vital Signs Temperature 97.4 F L 01/28/18 11:49 Pulse Rate 81 01/28/18 11:49 Respiratory Rate 16 01/28/18 11:49 Blood Pressure 201/85 01/28/18 11:49 O2 Sat by Pulse Oximetry 100 01/28/18 11:49 Temperature 98.0 F 01/28/18 16:56 Pulse Rate 102 01/28/18 16:56 Respiratory Rate 18 01/28/18 16:56 Blood Pressure 120/44 01/28/18 16:56 O2 Sat by Pulse Oximetry 99 01/28/18 16:56 Oxygen Delivery Oxygen Delivery Room Air Medical Decision Making - MDM Narrative Medical decision making narrative: I did see the patient is spoke with an examine her and did review the record from Dr. Jairo Bonds and the patient does have a comminuted left knee fracture and I did review the record of the radiology report and orthopedics is paged. Patient is negative head CT. She is anticoagulated on Coumadin. She is conversational. She is here with her daughter. Did receive initial dose of fentanyl and Zofran and did still have pain so I gave her an additional 4 mg of IV morphine 1449 I did review the patient's labs without significant abnormality. I did speak with Dr. Young from orthopedics who will consult with patient and he did revie w the patient's x-ray showing a comminuted left knee fracture. The patient does have 2+ dorsal pedal pulses so there is not a vascular compromise at this time. Patient will be taken to surgery. I also then spoke with the hospitalist accepts the patient for admission to their service and orthopedics will be consult. No bleeding in the brain. Recheck of the vital signs shows that the blood pressure systolic has improved from 201 and is currently 166. 1527 I did speak with Dr. Young again and informed him that we will get the pelvic CT and he said he will follow-up the results of the CT. He recommended a posterior long-leg splint on the left knee in a position of comfort and no reduc tion at this time. The patient still had pain so she received an additional 4 mg morphine IV 1549 - Lab Data Result diagrams: 01/28/18 15:37 01/28/18 13:18 Lab Results 01/28/18 01/28/18 01/28/18 Range/Units 13:18 13:18 13:18 WBC 10.5 (4.3-11.1) K/mcL RBC 4.66 (3.82-4.97) M/mcL Hgb 11.9 (11.5-15.4) g/dL Hct 38.0 (35.3-44.9) % MCV 81.5 L (83.0-100.0) fL MCH 25.5 L (28.0-33.3) pg MCHC 31.3 L (31.6-35.5) g/dL RDW 14.3 (11.5-14.5) % Plt Count 184 (140-400) K/mcL MPV 13.4 H (9.4-12.4) fL PT 28.1 H (9.4-12.1) Seconds INR 2.5 Sodium 138 (136-145) mEq/L Potassium 4.6 (3.5-5.1) mEq/L Chloride 105 (98-107) mEq/L Carbon Dioxide 27 (23-29) mEq/L BUN 24 H (8-23) mg/dL Creatinine 1.16 (0.60-1.20) mg/dL Est GFR ( Amer) 54 L (> 60) Est GFR (Non-Af Amer) 44 L (> 60) BUN/Creatinine Ratio 21 (6-26) Glucose 122 H (70-105) mg/dL Calculated Osmolality 291 (280-300) Calcium 9.4 (8.6-10.3) mg/dL 01/28/18 Range/Units 15:37 WBC 12.4 H (4.3-11.1) K/mcL RBC 4.62 (3.82-4.97) M/mcL Hgb 11.8 (11.5-15.4) g/dL Hct 37.7 (35.3-44.9) % MCV 81.6 L (83.0-100.0) fL MCH 25.5 L (28.0-33.3) pg MCHC 31.3 L (31.6-35.5) g/dL RDW 14.1 (11.5-14.5) % Plt Count 190 (140-400) K/mcL MPV 13.3 H (9.4-12.4) fL PT (9.4-12.1) Seconds INR Sodium (136-145) mEq/L Potassium (3.5-5.1) mEq/L Chloride (98-107) mEq/L Carbon Dioxide (23-29) mEq/L BUN (8-23) mg/dL Creatinine (0.60-1.20) mg/dL Est GFR ( Amer) (> 60) Est GFR (Non-Af Amer) (> 60) BUN/Creatinine Ratio (6-26) Glucose (70-105) mg/dL Calculated Osmolality (280-300) Calcium (8.6-10.3) mg/dL Critical Care Time Critical Care Time: No
[2018-01-28 15:10] LABS: Calcium 9.4 mg/dL (8.6-10.3); Potassium 4.6 mEq/L (3.5-5.1)
[2018-01-28] MEDS ORDERED: Naloxone 0.4 MG/ML INJ IVP PRN (15:23)
[2018-01-28] MEDS ORDERED: traMADol 50 MG TABLET PO PRN (15:23)
[2018-01-28 15:50] LABS: Hematocrit 37.7 % (35.3-44.9); Hemoglobin 11.8 g/dL (11.5-15.4); Mean Corpuscular HGB Conc 31.3 g/dL (31.6-35.5); Mean Corpuscular Hemoglobin 25.5 pg (28.0-33.3); Mean Corpuscular Volume 81.6 fL (83.0-100.0); Mean Platelet Volume 13.3 fL (9.4-12.4); Platelet Count 190 K/mcL (140-400); Red Blood Count 4.62 M/mcL (3.82-4.97); Red Cell Distribution Width 14.1 % (11.5-14.5)
--- NOTE | 2018-01-28 16:03 | Internal Med History&Physical ---
Date of Encounter: 01/28/18 Time of Encounter: 15:55 Internal Medicine - H&P: HPI Chief complaint: knee pain following a fall Admitted From: Home Plans for Post Hospital Care: Home History of present illness: Ms. Blair is a 87 year old female past medical history significant for A. fib on warfarin, hypertension, diabetes diet controlled. Patient presented to the ED following a fall at home. Patient reports that today after she was getting out of the shower, she tripped and fell. She reports hitting her left knee, and hitting her head, but denies loosing consciousness, also denies lightheadedness, or dizziness before the fall. Patient denies shortness of breath or chest pain. Denies nausea or vomiting. Patient being admitted due to Left knee: Comminuted fracture involving the distal femoral metadiaphysis with apex anterior angulation. Past Med Surg Social Fam HX - Past Medical History Medical history: diabetes, renal disease, myocardial infarction, hypertension, TIA, kidney stones Psychiatric history: no psych history - Past Surgical History Surgical History: appendectomy, cholecystectomy, hysterectomy, orthopedic, other Additional surgical history: left knee and shoulder replacement. - Social History Smoking Status: Never smoker Smokeless Tobacco Status: No Alcohol use: none Drug use: none - Family History Mother Family Member Ethnicity: Non- Living Status: Hx Family Cardiac Disorders: Yes ([place]) Hx Family Endocrine Disorder: Yes (diabetes) Father Family Member Ethnicity: Non- Living Status: Hx Family Cardiac Disorders: Yes (CHF) Hx Family Respiratory Disorders: No Brother Family Member Ethnicity: Non- Living Status: Hx Family Cancer: Yes Sister Family Member Ethnicity: Non- Living Status: Hx Family Respiratory Disorders: Yes (COPD) Hx Family Cancer: No Hx Family GI Disorders: No Internal Medicine - H&P: Meds Atorvastatin [Lipitor] 40 mg PO HS 09/09/16 [History] Gabapentin [Neurontin] 600 mg PO TID 09/09/16 [History] Lisinopril [Zestril] 20 mg PO BID 09/09/16 [History] Warfarin [Coumadin] 5 mg PO SUTUTHSA 09/09/16 [History] Warfarin [Coumadin] 7.5 mg PO MOWEFR 09/09/16 [History] Allergy/AdvReac Type Severity Reaction Status Date / Time acetaminophen [From Vicodin] AdvReac See Verified 01/02/15 09:31 Comments Cyclobenzaprine AdvReac Drowsy Verified 01/02/15 09:31 [From Flexeril] hydrocodone [From Vicodin] AdvReac See Verified 01/02/15 09:31 Comments Hydromorphone [From Dilaudid] AdvReac Drowsy Verified 01/02/15 09:31 Oxycodone AdvReac Dizziness Verified 01/02/15 09:31 All Systems PM: A 10-system review of systems was performed and is negative for pertinent findings except as documented above in the HPI. - Constitutional Constitutional: falls, weakness, no chills, no fatigue, no malaise - EENT Eyes: no pain Nose, mouth and throat: no change in voice - Cardiovascular Cardiovascular ROS IM: no chest pain, no dyspnea, no edema, no irregular heart rhythm, no lightheadedness, no orthopnea, no palpitations, no paroxysmal nocturnal dyspnea, no syncope - Respiratory Respiratory: no cough, no dyspnea, no wheezing, no stridor, no chest congestion - Gastrointestinal Gastrointestinal: no constipation, no diarrhea, no fecal incontinence, no loose stools, no melena, no nausea, no vomiting - Genitourinary Genitourinary: no change in urinary stream, no difficulty urinating, no dysuria - Musculoskeletal Musculoskeletal ROS IM: no atrophy, no back pain - Integumentary Integumentary IM: no rash - Neurological Neurological ROS: no headache(s), no lack of coordination, no weakness - Endocrine Endocrine IM: no fatigue (Rest of the physical exam is negative. ) - Constitutional Vitals: Temp Pulse Resp BP Pulse Ox 97.4 F L 88 16 166/86 100 01/28/18 11:49 01/28/18 14:11 01/28/18 14:11 01/28/18 14:11 01/28/18 14:11 Exam: General: Alert and oriented x4. In mild distress due to left knee pain Skin: Normal color, no rash, no lesions. HEENT: EOM, pupils equal, round and reactive. Cardiovascular: Irregularly, irregular, Normal S1 & S2, no rubs, gallops, grade 3/6 systolic murmur. Lungs: CTA bilaterally, no wheezes or crackles. Abdomen: Obese, Soft, non-tender, no rigidity. Extremities: left lower extr externally rotated, no edema. Neurological: Normal cognition and motor skills. Rest of the physical exam is non contributory Internal Med - H&P Results - Labs CBC & Chem 7: 01/28/18 15:37 01/28/18 13:18 Labs: Short CBC 01/28/18 01/28/18 Range/Units 13:18 15:37 WBC 10.5 12.4 H (4.3-11.1) K/mcL Hgb 11.9 11.8 (11.5-15.4) g/dL Hct 38.0 37.7 (35.3-44.9) % Plt Count 184 190 (140-400) K/mcL BMP 01/28/18 13:18 Sodium 138 Potassium 4.6 Chloride 105 Carbon Dioxide 27 BUN 24 H Creatinine 1.16 Glucose 122 H Calcium 9.4 - Impressions ITS Impressions Knee X-Ray 01/28/18 00:00 IMPRESSION: Left knee: Comminuted fracture involving the distal femoral metadiaphysis with apex anterior angulation. Left tibia and fibula: No acute osseous abnormality demonstrated. Left foot: Mildly limited examination with no acute osseous abnormality demonstrated. D/ / Micheal Moncada MD / Micheal Moncada MD Interpreting Provider: Micheal Moncada MD Cervical Spine CT 01/28/18 11:47 IMPRESSION: No acute abnormality of the cervical spine. Degenerative changes. D/ / Miguel Ángel Slade MD / Miguel Ángel Slade MD Interpreting Provider: Miguel Ángel Slade MD Head CT 01/28/18 11:47 IMPRESSION: Left parietooccipital scalp contusion. No underlying displaced calvarial fracture or acute intracranial abnormality. Stable chronic findings, as above. D/ / Sonido Kelly / Sonido Kelly Interpreting Provider: Sonido Kelly Chest X-Ray 01/28/18 11:49 IMPRESSION: No evidence pneumonia or pleural effusion. D/ / Jose Alejandro Fofana / Jose Alejandro Fofana Interpreting Provider: Jose Alejandro Fofana Femur X-Ray 01/28/18 11:49 IMPRESSION: 1. Traumatic comminuted periprosthetic fracture of the distal femur with mild anterior apex angulation. D/ / Jesse Shell MD / Jesse Shell MD Interpreting Provider: Jesse Shell MD Pelvis X-Ray 01/28/18 11:49 IMPRESSION: Questionable lucency noted within the mid right femoral neck, which could represent a nondisplaced fracture or be artifactual related to overlying soft tissue. This would be best assessed with a pelvic CT without contrast given patient's recent history of trauma. Other nontraumatic findings as above. D/ / Giovanny Casanova MD / Giovanny Casanova MD Interpreting Provider: Giovanny Casanova MD Tibia/Fibula X-Ray 01/28/18 11:49 IMPRESSION: Left knee: Comminuted fracture involving the distal femoral metadiaphysis with apex anterior angulation. Left tibia and fibula: No acute osseous abnormality demonstrated. Left foot: Mildly limited examination with no acute osseous abnormality demonstrated. D/ / Micheal Moncada MD / Micheal Moncada MD Interpreting Provider: Micheal Moncada MD Foot X-Ray 01/28/18 11:57 IMPRESSION: Left knee: Comminuted fracture involving the distal femoral metadiaphysis with apex anterior angulation. Left tibia and fibula: No acute osseous abnormality demonstrated. Left foot: Mildly limited examination with no acute osseous abnormality demonstrated. D/ / Micheal Moncada MD / Micheal Moncada MD Interpreting Provider: Micheal Moncada MD - Assessment and plan (1) Knee fracture, left Current Visit: Yes Status: Acute Assessment and plan: Plan: Ortho consulted. Plan of care as per Ortho recommendations Pain control with tramadol 50mg/PO Q6HR PRN Pt/OT when patient stable post Op. (2) DVT prophylaxis Current Visit: No Status: Acute Assessment and plan: Heparin 5000 units subcutaneous twice a day. (3) CKD (chronic kidney disease), stage II Current Visit: No Status: Chronic Assessment and plan: Kidney function stable. Avoid nephrotoxic medications (4) Hypertension Current Visit: No Status: Chronic Assessment and plan: BP sub-optimally controlled possible due to pain. Will resume patient home anti hypertensive medications Lisinopril 20mg/PO daily Hydralazine 5mg/IV Q6HR PRN for SBP >190 Qualifiers: Qualified Code(s): I10 - Essential (primary) hypertension (5) Paroxysmal a-fib Current Visit: No Status: Chronic Assessment and plan: Patient no on medications for rate control. On Warfarin Hold warfarin, INR 2.5. Will resume anticoagulation post op if Ok with Ortho. (6) Type 2 diabetes mellitus Current Visit: No Status: Chronic Assessment and plan: Diet controlled. As per patient she was told to discontinue glipizide about a week ago. Carb control diet. Qualifiers: Qualified Code(s): E11.22 - Type 2 diabetes mellitus with diabetic chronic kidney disease; N18.3 - Chronic kidney disease, stage 3 (moderate) - Time Spent With Patient Total time spent is greater than 50% in coordination of care (as documented) at patient's floor/unit and/or counseling patient: 25 - 35 minutes
--- NOTE | 2018-01-28 19:28 | Anesthesia Evaluation PreOp ---
Date of Encounter: 01/29/18 Time of Encounter: 07:29 - Past History Planned Operation: Left Distal Femoral Cardiac History: ND (in ), HTN, Hyperlipidemia Pulmonary History: Former smoker (quit 56 years ago) SUPERVISOR [employer] History: TIA (2016) Other Medical History: Renal (stage 3 CKD), Diabetes Type II Anesthesia History: Past Anesthesia, Problems (PONV) Alcohol Use: none Drug use: none Medications and Allergies Atorvastatin [Lipitor] 40 mg PO HS 09/09/16 [History] Gabapentin [Neurontin] 600 mg PO TID 09/09/16 [History] Lisinopril [Zestril] 20 mg PO BID 09/09/16 [History] Warfarin [Coumadin] 5 mg PO SUTUTHSA 09/09/16 [History] Warfarin [Coumadin] 7.5 mg PO MOWEFR 09/09/16 [History] Allergy/AdvReac Type Severity Reaction Status Date / Time acetaminophen [From Vicodin] AdvReac See Verified 01/02/15 09:31 Comments Cyclobenzaprine AdvReac Drowsy Verified 01/02/15 09:31 [From Flexeril] hydrocodone [From Vicodin] AdvReac See Verified 01/02/15 09:31 Comments Hydromorphone [From Dilaudid] AdvReac Drowsy Verified 01/02/15 09:31 pregabalin [From Lyrica] AdvReac Dizziness Verified 01/28/18 19:32 - Meds/Allergy Pre-op Review Medications Reviewed: Yes Allergies Reviewed: Yes Beta Blockers on Current Med List: No Anesthesia Results - Labs 01/28/18 15:37 01/28/18 13:18 - Imaging EKG: report reviewed (01/28/2018 Sinus rhythm Ventricular premature complex 04/15/2017 SINUS RHYTHM) Additional studies: 11/20/2016 Echo Impressions: Normal LV systolic function, LVEF 65%. Mild left ventricular diastolic dysfunction. Normal right ventricular size and function. Moderately dilated left atrium. No significant valvular dysfunction. No evidence of pulmonary hypertension. Anesthesia Exam Vital Signs/O2 Sat/Glucose, Most Recent Temp Pulse Resp BP Pulse Ox 98.6 F 96 16 107/52 98 01/29/18 04:32 01/29/18 04:32 01/29/18 04:32 01/29/18 04:32 10/19/18 04:32 Blood Glucose* 107 Height: 5'2''/1.57m Weight: 165 lbs/74.843 kg NPO (# of Hours): 8 Pain Scale: 7 Pain Scale Used: Numeric (1 - 10) - HEENT Pupil (Motor): EOMI Mallampati: II Teeth: Edentulous Oral Opening: Greater than 3 - SUPERVISOR [employer] LOC: Oriented SUPERVISOR [employer] Motor: Normal RUE, Normal LUE, Normal RLE, Normal LLE, Normal Face [employer]PERVISOR [employer] Sensory: Normal: RUE, LUE, RLE, LLE, Face - Cardiac Rhythm: Regular Murmur: Systolic - Pulmonary Breath Sounds: bilateral Clear Respiratory Effort: Symmetrical Anesthesia Assess/Plan ASA Score: 3 Modified Humbird Scale for Level of Consciousness: Cooperative, oriented, and tranquil Anesthetic Plan: General, Regional Monitoring Plan: Standard Monitors Recovery Plan: PACU
[2018-01-28] MEDS: Gabapentin 300 MG CAPSULE PO SCH (20:16)
[2018-01-28 22:01] LABS: Bilirubin,Urine Negative (Negative); Blood,Urine Small (Negative); Clarity,Urine Turbid (Clear); Color,Urine Yellow (Yellow); Glucose,Urine (UA) Normal (Normal); Ketones,Urine Negative (Negative); Leukocyte Esterase,Urine Large (Negative); Nitrite,Urine Positive (Negative); Protein,Urine 100 mg/dL (Neg-Trace); Specific Gravity,Urine 1.019 (1.010-1.025); Urobilinogen,Urine Normal (Normal)
[2018-01-28 22:14] LABS: Hyaline Casts,Urine Few per lpf (None-Few); Squamous Epithelial Cell,Urine Few per lpf (None-Few)
[2018-01-28 22:16] LABS: WBC,Urine TNTC per hpf (0-3)
[2018-01-28 22:17] LABS: Bacteria,Urine Moderate per hpf (None-Few)
[2018-01-28] MEDS ORDERED: *HR* OxyCODONE Immed Rel 5 MG TABLET PO ONE (23:00)
[2018-01-29] MEDS ORDERED: *HR* OxyCODONE Immed Rel 5 MG TABLET PO PRN ×3 (03:57→19:36)
--- NOTE | 2018-01-29 05:09 | Event Note ---
Date of Encounter: 01/29/18 Time of Encounter: 05:08 Called by RN for concerns of UTI. I reviewed UA results suggesting UTI. I ordered STAT urine sample for culture and ordered Rocephin daily.
[2018-01-29 05:40] LABS: INR 1.8; Prothrombin Time 20.3 Seconds (9.4-12.1)
[2018-01-29 05:45] LABS: Magnesium 1.8 mg/dL (1.6-2.6); Phosphorous 3.7 mg/dL (2.7-4.5)
--- NOTE | 2018-01-29 06:32 | Orthopedics Progress Note ---
Date of Encounter: 01/29/18 Time of Encounter: 06:31 Subjective Interval history: Patient status post fall getting out of the shower yesterday sustaining a comminuted periprosthetic distal femur fracture. Based on the fracture pattern combination location open reduction internal fixation is not a good option. Recommendation is for revision surgery to a hinged knee distal femoral replacement. We reviewed the risks and benefits as well as recovery. All questions were answered. The patient agreed to this treatment plan and appeared to understand the plan is reviewed. Objective Vital signs: Vital Signs Temp Pulse Resp BP Pulse Ox 01/29/18 04:32 98.6 F 96 16 107/52 98 01/29/18 01:46 98.0 F 98 16 126/68 96 01/28/18 23:17 98.0 F 88 16 147/70 98 01/28/18 23:02 97.9 F 94 16 138/76 97 01/28/18 22:46 98.2 F 95 17 121/60 97 01/28/18 22:43 98.2 F 95 17 121/60 97 01/28/18 20:27 97.6 F 92 16 147/79 97 01/28/18 20:12 97.7 F 96 16 125/62 97 01/28/18 19:00 98.4 F 97 17 105/47 96 01/28/18 17:21 98.1 F 95 16 119/64 94 01/28/18 16:56 98.0 F 102 18 120/44 99 01/28/18 16:26 16 165/81 01/28/18 14:11 88 16 166/86 100 01/28/18 11:49 97.4 F L 81 16 201/85 100 Intake and Output 01/28/18 01/28/18 01/29/18 15:59 23:59 07:59 Intake Total 300 / 300 300 / 300 Output Total 450 / 450 450 / 450 Balance -150 / -150 -150 / -150 Intake: Blood Product 300 / 300 300 / 300 Plasma Unit [id number] 300 / 300 Plasma Unit [id number] 0 / 0 300 / 300 Output: Catheter 450 / 450 450 / 450 Other: Weight 74.843 kg Blood Glucose* 107 - Labs CBC & BMP: 01/28/18 15:37 01/28/18 13:18 Labs: Abnormal lab results WBC 12.4 K/mcL (4.3-11.1) H 01/28/18 15:37 MCV 81.6 fL (83.0-100.0) L 01/28/18 15:37 MCH 25.5 pg (28.0-33.3) L 01/28/18 15:37 MCHC 31.3 g/dL (31.6-35.5) L 01/28/18 15:37 MPV 13.3 fL (9.4-12.4) H 01/28/18 15:37 PT 20.3 Seconds (9.4-12.1) H 01/29/18 04:14 BUN 24 mg/dL (8-23) H 01/28/18 13:18 Est GFR ( Amer) 54 (> 60) L 01/28/18 13:18 Est GFR (Non-Af Amer) 44 (> 60) L 01/28/18 13:18 Glucose 122 mg/dL (70-105) H 01/28/18 13:18 POC Glucose 131 mg/dL (70-99) H 01/28/18 19:39 Urine Clarity Turbid (Clear) A 01/28/18 18:00 Urine Protein 100 mg/dL (Neg-Trace) H 01/28/18 18:00 Urine Blood Small (Negative) H 01/28/18 18:00 Urine Nitrite Positive (Negative) A 01/28/18 18:00 Ur Leukocyte Esterase Large (Negative) H 01/28/18 18:00 Urine Microscopic RBC 5-15 per hpf (0-3) H 01/28/18 18:00 Urine Microscopic WBC TNTC per hpf (0-3) H 01/28/18 18:00 Urine Bacteria Moderate per hpf (None-Few) H 01/28/18 18:00 Consult Discharge Plan - Plan Referrals: Karel Nick MD [Primary Care Provider] -
--- NOTE | 2018-01-29 06:54 | Electrocardiograph Report ---
[facility] [employer] [facility] Test Date: 2018-01-28 Pat Name: Jillian Blair Department: EXAM19 Room: [facility] Gender: F Software Engineering Analyst: : 1930 Requested By: Jairo Bonds Order Number: [id number] Reading MD: Karel Nick Measurements Intervals [place] Rate: 80 P: 72 MI: 162 QRS: 23 QRSD: 84 T: 53 QT: 382 QTc: 441 Interpretive Statements Sinus rhythm Ventricular premature complex Electronically Signed On 01-29-2018 6:53:08 EDT by Karel Nick
[2018-01-29] MEDS ORDERED: cefTRIAXone 1,000 MG in Water for inj. (sterile) 20 ML 10 ML IVP SCH (09:00)
[2018-01-29] MEDS: Gabapentin 300 MG CAPSULE PO SCH ×3 (09:13→20:32)
[2018-01-29] MEDS: Lisinopril 20 MG TABLET PO SCH ×3 (09:13→21:39)
[2018-01-29] MEDS: *HR* OxyCODONE Immed Rel 5 MG TABLET PO SCH ×2 (10:40→17:05)
--- NOTE | 2018-01-29 11:28 | Internal Med Progress Note ---
Hospitalist Progress Note - Encounter Date of Encounter: 01/29/18 Time of Encounter: 09:10 - Subjective Interval History: Patient lying down in bed. Is awake and alert. Awaiting surgery. Complains of pain in left knee. Denies any chest pain or palpitations. No shortness of breath. No exertional dyspnea. No lower extremity edema. - Exam Vitals: Temp Pulse Resp BP Pulse Ox 98.4 F 87 16 109/63 98 01/29/18 07:01 01/29/18 07:01 01/29/18 07:01 01/29/18 07:01 01/29/18 07:01 Exam: General: Patient is alert, no acute distress, oriented x 3 Respiratory: Good respiratory effort. Normal breath sounds. No wheezing or crackles. Cardiovascular: Regular rate and rhythm. s1 and s2 normal No clicks, rubs, gallops, or murmurs. No pedal edema Abdomen: Abdomen is soft, nontender. Bowel sounds are present Musculoskeletal: Spontaneously moving all extremities . Tenderness in left lower extremity around the knee joint and upper thigh. Skin: warm, dry, intact. Neuro: Alert oriented x 3 normal cranial nerves, no focal deficits - Assessment and Plan (1) Knee fracture, left Current Visit: Yes Status: Acute Assessment and Plan: Acute fracture of the distal femur diaphysis in the periprosthetic region. Orthopedics consulted. Planning for surgery later today. Medically everything patient is at intermediate risk for any cardiac complications given her advanced age. No further preoperative workup needed at this time. (2) Type 2 diabetes mellitus Current Visit: Yes Status: Chronic Assessment and Plan: Blood sugars are fairly controlled. We will continue current insulin regimen. Monitor vital signs closely. (3) Paroxysmal a-fib Current Visit: Yes Status: Chronic Assessment and Plan: History of A. fib. INR 1.8 today. She did receive fresh frozen plasma. (4) Hypertension Current Visit: Yes Status: Chronic (5) CKD (chronic kidney disease), stage II Current Visit: Yes Status: Chronic Assessment and Plan: Creatinine at baseline. (6) DVT prophylaxis Current Visit: Yes Status: Acute Assessment and Plan: Surgery planned for today. Holding Coumadin for this. We will resume after surgery. - Time Spent with Patient Total time spent is greater than 50% in coordination of care (as documented) at patient's floor/unit and/or counseling patient: Internal Medicine: Result - Labs CBC & Chem 7: 01/28/18 15:37 01/28/18 13:18 Labs: Short CBC 01/28/18 01/28/18 Range/Units 13:18 15:37 WBC 10.5 12.4 H (4.3-11.1) K/mcL Hgb 11.9 11.8 (11.5-15.4) g/dL Hct 38.0 37.7 (35.3-44.9) % Plt Count 184 190 (140-400) K/mcL BMP 01/28/18 13:18 Sodium 138 Potassium 4.6 Chloride 105 Carbon Dioxide 27 BUN 24 H Creatinine 1.16 Glucose 122 H Calcium 9.4 Urine 01/28/18 Range/Units 18:00 Urine Color Yellow (Yellow) Urine Clarity Turbid A (Clear) Urine pH 7.0 (5.0-8.0) pH Units Ur Specific [place] 1.019 (1.010-1.025) Urine Protein 100 H (Neg-Trace) mg/dL Urine Glucose (UA) Normal (Normal) mg/dL - ABG Interpretation ABG results: PT/INR, D-dimer PT 20.3 Seconds (9.4-12.1) H 01/29/18 04:14 - Impressions Impressions Knee X-Ray 01/28/18 00:00 IMPRESSION: Left knee: Comminuted fracture involving the distal femoral metadiaphysis with apex anterior angulation. Left tibia and fibula: No acute osseous abnormality demonstrated. Left foot: Mildly limited examination with no acute osseous abnormality demonstrated. D/ / Micheal Moncada MD / Micheal Moncada MD Interpreting Provider: Micheal Moncada MD Cervical Spine CT 01/28/18 11:47 IMPRESSION: No acute abnormality of the cervical spine. Degenerative changes. D/ / Miguel Ángel Slade MD / Miguel Ángel Slade MD Interpreting Provider: Miguel Ángel Slade MD Head CT 01/28/18 11:47 IMPRESSION: Left parietooccipital scalp contusion. No underlying displaced calvarial fracture or acute intracranial abnormality. Stable chronic findings, as above. D/ / Sonido Kelly / Sonido Kelly Interpreting Provider: Sonido Kelly Chest X-Ray 01/28/18 11:49 IMPRESSION: No evidence pneumonia or pleural effusion. D/ / Jose Alejandro Fofana / Jose Alejandro Fofana Interpreting Provider: Jose Alejandro Fofana Femur X-Ray 01/28/18 11:49 IMPRESSION: 1. Traumatic comminuted periprosthetic fracture of the distal femur with mild anterior apex angulation. D/ / Jesse Shell MD / Jesse Shell MD Interpreting Provider: Jesse Shell MD Pelvis X-Ray 01/28/18 11:49 IMPRESSION: Questionable lucency noted within the mid right femoral neck, which could represent a nondisplaced fracture or be artifactual related to overlying soft tissue. This would be best assessed with a pelvic CT without contrast given patient's recent history of trauma. Other nontraumatic findings as above. D/ / Giovanny Casanova MD / Giovanny Casanova MD Interpreting Provider: Giovanny Casanova MD Tibia/Fibula X-Ray 01/28/18 11:49 IMPRESSION: Left knee: Comminuted fracture involving the distal femoral metadiaphysis with apex anterior angulation. Left tibia and fibula: No acute osseous abnormality demonstrated. Left foot: Mildly limited examination with no acute osseous abnormality demonstrated. D/ / Micheal Moncada MD / Micheal Moncada MD Interpreting Provider: Micheal Moncada MD Foot X-Ray 01/28/18 11:57 IMPRESSION: Left knee: Comminuted fracture involving the distal femoral metadiaphysis with apex anterior angulation. Left tibia and fibula: No acute osseous abnormality demonstrated. Left foot: Mildly limited examination with no acute osseous abnormality demonstrated. D/ / Micheal Moncada MD / Micheal Moncada MD Interpreting Provider: Micheal Moncada MD Pelvis CT 01/28/18 15:35 IMPRESSION: No acute fracture identified. D/ / Estela Goldman Cha, MD / Estela Goldman Cha, MD Interpreting Provider: Estela Goldman Cha, MD Consult Discharge Plan - Plan Referrals: Karel Nick MD [Primary Care Provider] - (2) Type 2 diabetes mellitus Qualifiers: Diabetes mellitus long-term insulin use: without long-term use Diabetes mellitus complication status: with kidney complications Diabetes mellitus complication detail: with chronic kidney disease Chronic kidney disease stage: stage 3 (moderate) Qualified Code(s): E11.22 - Type 2 diabetes mellitus with d iabetic chronic kidney disease; N18.3 - Chronic kidney disease, stage 3 (moderate) (4) Hypertension Qualifiers: Hypertension type: essential hypertension Qualified Code(s): I10 - Essential (primary) hypertension
[2018-01-29] MEDS ORDERED: Ethanol\\Acetic Acid\\Na Ace\\Ben 1,000 ML IRRIG.SOLN IR ONE (18:41)
[2018-01-29] MEDS ORDERED: Ondansetron 4 MG/2 ML VIAL IVP PRN (19:36)
[2018-01-29] MEDS ORDERED: Naloxone 0.4 MG/ML INJ IVP PRN (19:36)
[2018-01-29] MEDS ORDERED: Temazepam 15 MG CAPSULE PO PRN (19:36)
[2018-01-29] MEDS ORDERED: Sennosides 8.6 MG TABLET PO PRN (19:36)
[2018-01-29] MEDS: *HR* OxyCODONE Immed Rel 5 MG TABLET PO PRN (20:34)
[2018-01-29] MEDS ORDERED: *HR* Dextrose 50 % in Water (Syg) 50 ML SYRINGE IVP PRN (20:42)
[2018-01-29] MEDS ORDERED: D5% in Water 1,000 ML IVC PRN (20:42)
[2018-01-29] MEDS ORDERED: Dextrose Gel 15 GM/37.5 ML TUBE PO PRN ×2 (20:42)
[2018-01-29] MEDS ORDERED: Insulin LISPRO 300 UNITS/3 ML VIAL SQ SCH (21:00)
[2018-01-30] MEDS: *HR* OxyCODONE Immed Rel 5 MG TABLET PO PRN ×3 (02:45→18:31)
[2018-01-30 05:21] LABS: Basophils % 0.3 %; Eosinophils # 0.1 K/mcL (0.0-0.6); Eosinophils % 0.6 %; Hematocrit 29.1 % (35.3-44.9); Immature Granulocytes % 0.5 % (0-4); Lymphocytes # 1.5 K/mcL (0.6-4.6); Lymphocytes % 14.1 %; Mean Corpuscular Hemoglobin 25.7 pg (28.0-33.3); Mean Corpuscular Volume 80.4 fL (83.0-100.0); Mean Platelet Volume 14.3 fL (9.4-12.4); Monocytes # 1.4 K/mcL (0.0-1.3); Monocytes % 13.6 %; Neutrophils # 7.3 K/mcL (1.6-8.9); Platelet Count 158 K/mcL (140-400); Red Blood Count 3.62 M/mcL (3.82-4.97); Red Cell Distribution Width 14.2 % (11.5-14.5); Segmented Neutrophils % 70.9 %
[2018-01-30 05:23] LABS: Hemoglobin 9.3 g/dL (11.5-15.4)
[2018-01-30 05:28] LABS: INR 1.5; Prothrombin Time 17.2 Seconds (9.4-12.1)
[2018-01-30 05:37] LABS: Calcium 9.4 mg/dL (8.6-10.3); Potassium 4.5 mEq/L (3.5-5.1)
[2018-01-30] MEDS ORDERED: Ethanol\\Acetic Acid\\Na Ace\\Ben 1,000 ML IRRIG.SOLN IR ONE (06:36)
[2018-01-30] MEDS ORDERED: *HR* Rocuronium Bromide 50 MG/5 ML VIAL ONE (06:36)
[2018-01-30] MEDS ORDERED: *HR* Midazolam HCl 2 MG/2 ML VIAL ONE (06:36)
[2018-01-30] MEDS ORDERED: Lidocaine -MPF 4% 5 ML AMPUL ONE (06:36)
[2018-01-30] MEDS ORDERED: *HR* FentaNYL (PF) 100 MCG/2 ML VIAL ONE (06:36)
[2018-01-30] MEDS ORDERED: *HR* Succinylcholine 200 MG/10 ML VIAL IVP ONE (06:36)
[2018-01-30] MEDS ORDERED: Lidocaine -MPF 2% 2 ML VIAL ONE ×2 (06:36→06:43)
[2018-01-30] MEDS ORDERED: *HR* Propofol 200 MG/20 ML VIAL IVP ONE (06:37)
[2018-01-30] MEDS ORDERED: ROPIVACAINE HCL/PF 0.5% 30 ML VIAL ONE (06:42)
[2018-01-30] MEDS ORDERED: Ondansetron 4 MG/2 ML VIAL ONE (06:43)
[2018-01-30] MEDS ORDERED: Dexamethasone 4 MG/ML VIAL ONE (06:43)
[2018-01-30] MEDS ORDERED: Bupivacaine/Clonidine Syringe 1 EACH SYRINGE ONE (06:47)
[2018-01-30] MEDS ORDERED: *HR* PHENYLEPHRINE 1,000 MCG/10 ML SYRINGE IVP ONE (07:25)
[2018-01-30] MEDS ORDERED: Insulin LISPRO 300 UNITS/3 ML VIAL SQ SCH (07:30)
[2018-01-30] MEDS ORDERED: EPHEDrine 50 MG/ML VIAL ONE (07:31)
[2018-01-30] MEDS ORDERED: Ondansetron 4 MG/2 ML VIAL IVP ONE (07:43)
[2018-01-30] MEDS ORDERED: *HR* Morphine 2 MG/ML SYRINGE IVP PRN (07:43)
[2018-01-30] MEDS ORDERED: *HR* Promethazine 25 MG/ML VIAL IVP PRN (07:43)
--- NOTE | 2018-01-30 07:49 | Anesthesia Procedures ---
Date of Encounter: 01/30/18 Time of Encounter: 07:00 Procedures: Anesthesia - Nerve Block Procedure Date: 01/30/18 Time: 07:00 Checklist: Correct Patient Identifier, Correct procedure, History checked Correct side: Left Blood Thinner: No Monitor Applied: EKG, BP, Pulse Oximetry Supplemental Oxygen via Nasal Cannula (L/min): 3 Sedation: Versed (mg): 2 Sedation: Fentanyl (mcg): 100 Indication: Post Op Analgesia Pre-op Neuro Deficits: No Block Type: Femoral, Other (Ipack) Catheter placed: No Sterile Technique: Yes Ultrasound used: Yes Anatomy identified: Yes Visual spread of Local: Yes Neuro Stimulation: Yes Nerve Stimulator Range: >0.4 - 0.6 mA Blood on Needle Aspiration: No Smooth Injection of Local: Yes Pain with Injection of Local: No Prep: Chlorhexadine Needle: 22 x 50 mm Stimuplex, 21 x 100 mm Stimuplex Local: 0.25% Bupivicaine w/Clonidine 20 mcg/cc, Ropivacaine Volume (cc): 30 Number of Attempts: 1 Complications: None/effective block
--- NOTE | 2018-01-30 08:20 | Orthopedic Operative Note ---
Date of procedure: 01/30/18 Pre-op diagnosis: Displaced left distal comminuted periprosthetic femur fracture Post-op diagnosis: same Procedure: Procedure: Left Revision total knee replacement to distal femoral replacement Estimated blood loss: 200 mL Hardware: Biomet distal femoral replacement 7 cm left femur, 3 cm segment 28.5 x 150 bowed stem, 12 Judy Auxiliary components tibial bushing axle femoral bushings lock pin Findings: Displaced comminuted distal femoral femoral prosthetic fracture Dictation of procedure: Patient brought to the operating placed on the operating table after general anesthesia was administered the left lower extremity was prepped and draped in the sterile surgical fashion the patient received IV antibiotics prior to incision. A longitudinal incision was made incorporating the old incision centered over the patella. The incision was made through the skin and subcutaneous tissue hemostasis was obtained with Bovie cautery. Using careful sharp dissection the extensor mechanism was identified. The patient had ruptured through the extensor mechanism with the proximal fracture fragment. A medial parapatellar approach was performed. The Judy was removed. Patient had extensive comminution with multiple large fragments. The distal femoral component with the attached bone was carefully dissected free from its soft tissue structures and removed. The tibial component was removed utilizing an osteotome and oscillating saw and then malleted out. The tibial component was removed without significant bone loss. The tibia was prepared first was reamed for the stem. The tibia was sized to 67 long nonmodular tibia This was a monoblock construct had good fit and fixation. Attention was then turned to the femur. The femoral shaft was transected to get a fresh bony cut. A cut that was even as well. The femur was reamed up to a size 7 cm the femur was reamed to 21 150 mm. To fit a 20.5 x 150 mm bowed stem the trial stem was impacted in place with the 3 cm segment and the 7 cm distal femur. A 12 Judy was used. Full flexion full extension no instability, good patella tracking. All trial components were removed. The knee sat for 2 minutes with a antibacterial solution while components were assembled on the back table. The monoblock tibia cemented first and impacted in place. The femoral component once assembled was impacted in place in the appropriate orientation. The tibial bushing the femoral bushings were locked in place the axle was used to articulate the tibial and femoral components and this was secured with the locking pin. Knee was taken through a range of motion and excellent patella tracking. The wound was irrigated with pulse irrigation. The extensor mechanism was closed with a running #2 PDS suture. The deep tissue was irrigated and closed with #2 PDS suture superficially with 0 PDS suture skin was closed with skin charlene. Patient placed in a sterile dressing postoperative brace extubated transferred to recovery room in stable condition. Anesthesia: GETA Surgeon: Harinder Lo Was there an captain's assistant present: No Estimated blood loss (cc): 200 Condition: stable Disposition: PACU
[2018-01-30] MEDS ORDERED: cefTRIAXone 1,000 MG in Water for inj. (sterile) 20 ML 10 ML IVP SCH (09:00)
[2018-01-30] MEDS ORDERED: Lisinopril 20 MG TABLET PO SCH (09:00)
[2018-01-30] MEDS ORDERED: 0.9 % Sodium Chloride 250 ML IVC SCH (09:09)
[2018-01-30] MEDS ORDERED: Temazepam 15 MG CAPSULE PO PRN ×2 (09:09)
[2018-01-30] MEDS ORDERED: Naloxone 0.4 MG/ML INJ IVP PRN (09:09)
[2018-01-30] MEDS ORDERED: MOM Conc 10 ML UD.LIQ PO PRN (09:09)
[2018-01-30] MEDS ORDERED: Ringers Solution, Lactated 1,000 ML IVC SCH (09:09)
[2018-01-30] MEDS ORDERED: Dextrose Gel 15 GM/37.5 ML TUBE PO PRN ×2 (09:09)
[2018-01-30] MEDS ORDERED: Ondansetron 4 MG/2 ML VIAL IVP PRN ×2 (09:09)
[2018-01-30] MEDS ORDERED: Sennosides 8.6 MG TABLET PO PRN ×2 (09:09)
[2018-01-30] MEDS ORDERED: *HR* Dextrose 50 % in Water (Syg) 50 ML SYRINGE IVP PRN (09:09)
[2018-01-30] MEDS ORDERED: D5% in Water 1,000 ML IVC PRN (09:09)
[2018-01-30 09:13] LABS: Hematocrit 25.6 % (35.3-44.9); Hemoglobin 8.3 g/dL (11.5-15.4)
[2018-01-30] MEDS: Ringers Solution, Lactated 1,000 ML IVC SCH ×4 (10:17→21:21)
[2018-01-30] MEDS: 0.9 % Sodium Chloride 250 ML IVC SCH ×2 (10:18)
--- NOTE | 2018-01-30 10:45 | Internal Med Progress Note ---
Hospitalist Progress Note - Encounter Date of Encounter: 01/30/18 Time of Encounter: 10:43 - Subjective Interval History: Patient had surgery earlier this morning. Doing well post surgery. She feels that the nerve block is now weaning now and is expecting pain but currently is comfortable. She denies any chest pain or palpitations. No nausea or vomiting. - Exam Vitals: Temp Pulse Resp BP Pulse Ox 98.6 F 120 16 126/58 95 01/30/18 10:11 01/30/18 10:11 01/30/18 10:11 01/30/18 10:11 01/30/18 10:11 Exam: General: Patient is alert, no acute distress, oriented x 3 Respiratory: Good respiratory effort. Normal breath sounds. No wheezing or crackles. Cardiovascular: Regular rate and rhythm. Tachycardia. s1 and s2 normal No clicks, rubs, gallops, or murmurs. No pedal edema Abdomen: Abdomen is soft, nontender. Bowel sounds are present Musculoskeletal: Left knee bandaged. Tenderness and swelling present. Skin: warm, dry, intact. Neuro: Alert oriented x 3 normal cranial nerves, no focal deficits - Assessment and Plan (1) Knee fracture, left Current Visit: Yes Status: Acute Assessment and Plan: Patient underwent left revision total knee replacement to distal femoral replacement today. Postop day 0. Continue pain management postoperatively. whanau support worker working on placement once patient is cleared from orthopedic standpoint. Moderate risk for complications. (2) Type 2 diabetes mellitus Current Visit: Yes Status: Chronic Assessment and Plan: Fairly controlled. Continue sliding scale insulin. Diabetic diet. (3) Paroxysmal a-fib Current Visit: Yes Status: Chronic Assessment and Plan: In sinus tachycardia currently. Most likely related to anemia. We will monitor with telemetry. (4) Hypertension Current Visit: Yes Status: Chronic Assessment and Plan: Blood pressure was elevated this morning during surgery but has since improved. We will monitor closely. (5) CKD (chronic kidney disease), stage II Current Visit: Yes Status: Chronic Assessment and Plan: Creatinine 1.29 today. Will monitor closely. Avoid nephrotoxic agents. (6) DVT prophylaxis Current Visit: Yes Status: Acute Assessment and Plan: Patient is on Coumadin. Will resume been cleared from orthopedic standpoint. (7) Anemia Current Visit: Yes Status: Acute Assessment and Plan: Hemoglobin 8.3 at this time. Most likely postsurgical. Will monitor closely and transfuse as needed. - Time Spent with Patient Total time spent is greater than 50% in coordination of care (as documented) at patient's floor/unit and/or counseling patient: Internal Medicine: Result - Labs CBC & Chem 7: 01/30/18 08:42 01/30/18 04:46 Labs: Short CBC 01/30/18 01/30/18 Range/Units 04:46 08:42 WBC 10.3 (4.3-11.1) K/mcL Hgb 9.3 L D 8.3 L (11.5-15.4) g/dL Hct 29.1 L 25.6 L (35.3-44.9) % Plt Count 158 (140-400) K/mcL Neutrophils # 7.3 (1.6-8.9) K/mcL BMP 01/30/18 04:46 Sodium 133 L Potassium 4.5 Chloride 99 Carbon Dioxide 29 BUN 20 Creatinine 1.29 H Glucose 153 H Calcium 9.4 - ABG Interpretation ABG results: PT/INR, D-dimer PT 17.2 Seconds (9.4-12.1) H 01/30/18 04:46 - Impressions Impressions Knee X-Ray 01/30/18 07:30 IMPRESSION: No acute osseous abnormality of the left knee post revision arthroplasty. D/ / Giovanny Llanes MD / Giovanny Llanes MD Interpreting Provider: Giovanny Llanes MD - VTE Documentation of Mechanical Device: Venous foot pump, device Consult Discharge Plan - Plan Referrals: Karel Nick MD [Primary Care Provider] - (2) Type 2 diabetes mellitus Qualifiers: Diabetes mellitus usp insulin use: without usp use Diabetes m ellitus complication status: with kidney complications Diabetes mellitus c omplication detail: with chronic kidney disease Chronic kidney disease stage: stage 3 (moderate) Qualified Code(s): E11.22 - Type 2 diabetes mellitus with diabetic chronic kidney disease; N18.3 - Chronic kidney disease, stage 3 (moderate) (4) Hypertension Qualifiers: Hypertension type: essential hypertension Qualified Code(s): I10 - Essential (primary) hypertension (7) Anemia Qualifiers: Anemia type: other cause Other causes of anemia: acute posthemorrhagic Qualified Code(s): D62 - Acute posthemorrhagic anemia
[2018-01-30] MEDS ORDERED: 0.9 % Sodium Chloride 1,000 ML IVC ONE (10:55)
[2018-01-30] MEDS: Gabapentin 300 MG CAPSULE PO SCH ×4 (11:11→20:33)
[2018-01-30] MEDS: Lisinopril 20 MG TABLET PO SCH ×2 (11:11→20:34)
[2018-01-30] MEDS: Insulin LISPRO 300 UNITS/3 ML VIAL SQ SCH ×3 (11:49→20:34)
--- NOTE | 2018-01-30 14:29 | Anesthesia Evaluation Post Op ---
Date of Encounter: 01/30/18 Time of Encounter: 09:00 - Vital Signs Vital Signs: Vital Signs Temp Pulse Resp BP Pulse Ox 01/30/18 08:55 99.7 F H 114 16 145/63 94 01/30/18 08:45 99.7 F H 115 18 153/58 99 01/30/18 08:35 99.9 F H 115 18 153/57 99 01/30/18 08:25 99.4 F 116 18 146/58 99 - Lungs Lungs: Clear Ascult./Percussion - Airway Airway: Non-obstructed - Cardiovascular Regular Rate - Mental Status Mental Status: Alert & Oriented, Answers Appropriately - Pain Pain Scale: 0 Pain Scale used: Numeric (1 - 10) - Nausea Vomiting Nausea Vomiting: Not Present - Hydration Hydration: Ice chips, [place] catheter - Discharge PostOp Status: Transfer Patient to floor Anes Supervising Prov Stmt: PT seen/evaluated, VSS and has met criteria for discharge to floor. - MD Víctor
[2018-01-30] MEDS ORDERED: Gabapentin 300 MG CAPSULE PO SCH (15:00)
[2018-01-30] MEDS ORDERED: *HR* Warfarin 5 MG TABLET PO SCH (18:00)
[2018-01-30] MEDS ORDERED: Warfarin perPT PO PRN (18:00)
[2018-01-31 05:26] LABS: Hematocrit 19.8 % (35.3-44.9)
[2018-01-31 05:27] LABS: Hemoglobin 6.4 g/dL (11.5-15.4)
[2018-01-31 05:34] LABS: INR 1.2
[2018-01-31 05:41] LABS: Calcium 8.7 mg/dL (8.6-10.3); Potassium 4.5 mEq/L (3.5-5.1)
[2018-01-31] MEDS: *HR* OxyCODONE Immed Rel 5 MG TABLET PO PRN ×5 (06:53→21:05)
--- NOTE | 2018-01-31 07:53 | Orthopedics Progress Note ---
Date of Encounter: 01/31/18 Time of Encounter: 07:53 Subjective Interval history: Patient was seen this morning doing well without complaints. Afebrile vital signs stable. Operative extremity: Neurovascularly intact Dressing clean dry and intact Calves nontender Assessment and plan: Continue with postoperative care Hematocrit 19 patient receiving 2 units packed red blood cells. Objective Vital signs: Vital Signs Temp Pulse Resp BP Pulse Ox 01/31/18 03:32 98.6 F 94 14 109/54 95 01/31/18 00:04 98.7 F 100 14 115/60 95 01/30/18 20:30 94 01/30/18 19:43 97.9 F 96 18 104/55 94 01/30/18 15:39 97.7 F 103 18 112/66 98 01/30/18 12:46 97.8 F 109 16 112/66 98 01/30/18 11:40 98.0 F 128 16 112/66 95 01/30/18 10:46 98.5 F 120 15 135/69 97 01/30/18 10:40 98.5 F 118 16 135/69 96 01/30/18 10:11 98.6 F 120 16 126/58 95 01/30/18 09:28 97 01/30/18 08:55 99.7 F H 114 16 145/63 94 01/30/18 08:45 99.7 F H 115 18 153/58 99 01/30/18 08:35 99.9 F H 115 18 153/57 99 01/30/18 08:25 99.4 F 116 18 146/58 99 Intake and Output 01/30/18 01/30/18 01/31/18 15:59 23:59 07:59 Intake Total 2240 / 2240 0 / 0 Output Total 750 / 750 0 / 0 1900 / 1900 Balance -750 / -750 2240 / 2240 -1900 / -1900 Intake: IV Fluids 1200 / 1200 Lactated Ringers 1,000 ML @ 75 1000 / 1000 mls/hr IVC .[id number] DIANE Rx#: [id number] Ancef 2,000 MG In 0.9 % Sodium 200 / 200 Chloride 100 ML @ 200 mls/hr IVPB Q8H DIANE Rx#:[id number] Oral 1040 / 1040 0 / 0 Output: Urine 0 / 0 Catheter 750 / 750 1900 / 1900 Other: Meal Dinner Percent of Meal Consumed 100% Weight 75.93 kg Blood Glucose* 202 226 Patient Weight 01/31/18 23:59 Weight 75.93 kg - Labs CBC & BMP: 01/31/18 04:54 01/31/18 04:54 Labs: Abnormal lab results RBC 3.62 M/mcL (3.82-4.97) L 01/30/18 04:46 Hgb 6.4 g/dL (11.5-15.4) L D 01/31/18 04:54 Hct 19.8 % (35.3-44.9) L 01/31/18 04:54 MCV 80.4 fL (83.0-100.0) L 01/30/18 04:46 MCH 25.7 pg (28.0-33.3) L 01/30/18 04:46 MPV 14.3 fL (9.4-12.4) H 01/30/18 04:46 Monocytes # 1.4 K/mcL (0.0-1.3) H 01/30/18 04:46 PT 14.0 Seconds (9.4-12.1) H 01/31/18 04:54 Sodium 134 mEq/L (136-145) L 01/31/18 04:54 BUN 24 mg/dL (8-23) H 01/31/18 04:54 Creatinine 1.34 mg/dL (0.60-1.20) H 01/31/18 04:54 Est GFR ( Amer) 45 (> 60) L 01/31/18 04:54 Est GFR (Non-Af Amer) 37 (> 60) L 01/31/18 04:54 Glucose 165 mg/dL (70-105) H 01/31/18 04:54 POC Glucose 226 mg/dL (70-99) H 01/30/18 20:31 Urine Clarity Turbid (Clear) A 01/28/18 18:00 Urine Protein 100 mg/dL (Neg-Trace) H 01/28/18 18:00 Urine Blood Small (Negative) H 01/28/18 18:00 Urine Nitrite Positive (Negative) A 01/28/18 18:00 Ur Leukocyte Esterase Large (Negative) H 01/28/18 18:00 Urine Microscopic RBC 5-15 per hpf (0-3) H 01/28/18 18:00 Urine Microscopic WBC TNTC per hpf (0-3) H 01/28/18 18:00 Urine Bacteria Moderate per hpf (None-Few) H 01/28/18 18:00 - VTE Documentation of Mechanical Device: Venous foot pump, device Consult Discharge Plan - Plan Referrals: Karel Nick MD [Primary Care Provider] -
[2018-01-31] MEDS: cefTRIAXone 1,000 MG in Water for inj. (sterile) 20 ML 10 ML IVP SCH (08:49)
[2018-01-31] MEDS: Lisinopril 20 MG TABLET PO SCH ×2 (08:50→21:00)
[2018-01-31] MEDS: Insulin LISPRO 300 UNITS/3 ML VIAL SQ SCH ×4 (09:05→21:06)
--- NOTE | 2018-01-31 10:54 | Internal Med Progress Note ---
Hospitalist Progress Note - Encounter Date of Encounter: 01/31/18 Time of Encounter: 10:44 - Subjective Interval History: Patient complaining of left knee pain. Worse than yesterday. Denies any fevers or chills. No nausea or vomiting. Pain was controlled when she received 10 mg of oxycodone earlier today but since then her brace has been readjusted and her pain feels worse. She is also asking for a catheter to be placed as she is having trouble getting up to use the bathroom. She does not want to use diapers either. - Exam Vitals: Temp Pulse Resp BP Pulse Ox 98.4 F 121 18 209/86 93 01/31/18 08:14 01/31/18 08:14 01/31/18 08:14 01/31/18 08:14 01/31/18 08:14 Exam: General: Patient is alert, no acute distress, oriented x 3 Respiratory: Good respiratory effort. Normal breath sounds. No wheezing or crackles. Cardiovascular: Regular rate and rhythm. s1 and s2 normal No clicks, rubs, gallops, or murmurs. No pedal edema Abdomen: Abdomen is soft, nontender. Bowel sounds are present Musculoskeletal: Tenderness over left knee. Brace in place Skin: warm, dry, intact. - Assessment and Plan (1) Knee fracture, left Current Visit: Yes Status: Acute Assessment and Plan: Left knee ruddy prosthetic fracture involving left femur. Postop day 1 of revision surgery. Remains in pain. Continue narcotic pain medications. PT evaluation. Orthopedics following. (2) Type 2 diabetes mellitus Current Visit: Yes Status: Chronic Assessment and Plan: Blood sugars Better controlled today. Continue current sliding scale insulin. Continue diabetic diet. (3) Paroxysmal a-fib Current Visit: Yes Status: Chronic Assessment and Plan: Patient tachycardic today. Sinus tachycardia. Likely from pain. Continue home medications. Continue anticoagulation with Coumadin. (4) Hypertension Current Visit: Yes Status: Chronic Assessment and Plan: Uncontrolled. Most likely from pain. Continue lisinopril. We will increase hydralazine as needed dose to 10 mg every 6 hours for systolic blood pressure greater than 160 (5) CKD (chronic kidney disease), stage II Current Visit: Yes Status: Chronic Assessment and Plan: Creatinine slightly worse today at 1.34. This is within her baseline. We will continue to monitor closely. Avoid any nephrotoxic agents. (6) DVT prophylaxis Current Visit: Yes Status: Acute Assessment and Plan: On Coumadin. (7) Anemia Current Visit: Yes Status: Acute Assessment and Plan: Anemia worse today. No signs of overt bleeding. Most likely related to postsurgical blood loss and dilution. We will transfuse 2 units PRBC. - Time Spent with Patient Total time spent is greater than 50% in coordination of care (as documented) at patient's floor/unit and/or counseling patient: Plan of Care Discussed with: patient Internal Medicine: Result - Labs CBC & Chem 7: 01/31/18 04:54 01/31/18 04:54 Labs: Short CBC 01/31/18 Range/Units 04:54 Hgb 6.4 L D (11.5-15.4) g/dL Hct 19.8 L (35.3-44.9) % BMP 01/31/18 04:54 Sodium 134 L Potassium 4.5 Chloride 103 Carbon Dioxide 27 BUN 24 H Creatinine 1.34 H Glucose 165 H Calcium 8.7 - ABG Interpretation ABG results: PT/INR, D-dimer PT 14.0 Seconds (9.4-12.1) H 01/31/18 04:54 - VTE Documentation of Mechanical Device: Venous foot pump, device Consult Discharge Plan - Plan Referrals: Karel Nick MD [Primary Care Provider] - (2) Type 2 diabetes mellitus Qualifiers: Diabetes mellitus terminal operations manager insulin use: without alf use Diabetes mellitus complication status: with kidney complications Diabetes mellitus complication detail: with chronic kidney disease Chronic kidney disease stage: stage 3 (moderate) Qualified Code(s): E11.22 - Type 2 diabetes mellitus with diabetic chronic kidney disease; N18.3 - Chronic kidney disease, stage 3 (modera te) (4) Hypertension Qualifiers: Hypertension type: essential hypertension Qualified Code(s): I10 - Essential (primary) hypertension (7) Anemia Qualifiers: Anemia type: other cause Other causes of anemia: acute posthemorrhagic Qualified Code(s): D62 - Acute posthemorrhagic anemia
[2018-01-31] MEDS: Gabapentin 300 MG CAPSULE PO SCH ×3 (11:21→21:00)
[2018-01-31] MEDS ORDERED: *HR* Warfarin 7.5 MG TABLET PO ONE (18:00)
[2018-02-01 03:01] LABS: Hemoglobin 9.5 g/dL (11.5-15.4)
[2018-02-01 03:06] LABS: INR 1.4; Prothrombin Time 15.4 Seconds (9.4-12.1)
[2018-02-01 03:18] LABS: Calcium 8.8 mg/dL (8.6-10.3); Potassium 4.5 mEq/L (3.5-5.1)
--- NOTE | 2018-02-01 06:50 | Orthopedics Progress Note ---
Date of Encounter: 02/01/18 Time of Encounter: 06:50 Subjective Interval history: Patient was seen this morning doing well without complaints. Afebrile vital signs stable. Operative extremity: Neurovascularly intact Dressing clean dry and intact Calves nontender Assessment and plan: Continue with postoperative care Hematocrit 29 Objective Vital signs: Vital Signs Temp Pulse Resp BP Pulse Ox 02/01/18 02:42 98.3 F 110 14 147/65 94 02/01/18 00:19 98.8 F 110 16 149/71 97 01/31/18 21:18 95 01/31/18 18:41 98.5 F 108 18 175/76 95 01/31/18 16:39 98.8 F 110 16 174/73 94 01/31/18 16:35 116 16 166/70 94 01/31/18 16:30 122 16 152/76 92 01/31/18 16:25 97.6 F 112 16 155/71 01/31/18 16:24 97.9 F 121 16 161/82 96 01/31/18 14:35 98.4 F 110 16 169/74 01/31/18 11:41 97.6 F 120 16 178/85 93 01/31/18 11:36 98.1 F 119 16 183/67 94 01/31/18 11:31 98.1 F 124 16 169/74 93 01/31/18 11:19 98.2 F 126 16 149/68 01/31/18 11:10 98.7 F 121 16 170/71 96 01/31/18 08:14 98.4 F 121 18 209/86 93 Intake and Output 01/31/18 01/31/18 02/01/18 15:59 23:59 07:59 Intake Total 582 / 582 1796 / 1796 500 / 500 Output Total 1125 / 1125 900 / 900 Balance 582 / 582 671 / 671 -400 / -400 Intake: IV Fluids 1000 / 1000 Lactated Ringers 1,000 ML @ 75 1000 / 1000 mls/hr IVC .[id number] DIANE Rx#: [id number] Rocephin 1,000 MG In Water for inj. (sterile) 10 ML @ 600 mls/ hr IVP DAILY DIANE Rx#:[id number] Oral 240 / 240 500 / 500 Blood Product 572 / 572 556 / 556 Rbcs Leuko Poor As-1 Unit 556 / 556 [id number] Rbcs Leuko Poor As-1 Unit 572 / 572 [id number] Output: Catheter 1125 / 1125 900 / 900 Other: Meal Breakfast Dinner Percent of Meal Consumed 0% 70% Weight 75.2 kg Blood Glucose* 145 125 Patient Weight 02/01/18 23:59 Weight 75.2 kg - Labs CBC & BMP: 02/01/18 02:38 02/01/18 02:38 Labs: Abnormal lab results RBC 3.62 M/mcL (3.82-4.97) L 01/30/18 04:46 Hgb 9.5 g/dL (11.5-15.4) L D 02/01/18 02:38 Hct 29.0 % (35.3-44.9) L 02/01/18 02:38 MCV 80.4 fL (83.0-100.0) L 01/30/18 04:46 MCH 25.7 pg (28.0-33.3) L 01/30/18 04:46 MPV 14.3 fL (9.4-12.4) H 01/30/18 04:46 Monocytes # 1.4 K/mcL (0.0-1.3) H 01/30/18 04:46 PT 15.4 Seconds (9.4-12.1) H 02/01/18 02:38 Sodium 133 mEq/L (136-145) L 02/01/18 02:38 Est GFR ( Amer) 54 (> 60) L 02/01/18 02:38 Est GFR (Non-Af Amer) 45 (> 60) L 02/01/18 02:38 Glucose 155 mg/dL (70-105) H 02/01/18 02:38 POC Glucose 163 mg/dL (70-99) H 01/31/18 16:15 Urine Clarity Turbid (Clear) A 01/28/18 18:00 Urine Protein 100 mg/dL (Neg-Trace) H 01/28/18 18:00 Urine Blood Small (Negative) H 01/28/18 18:00 Urine Nitrite Positive (Negative) A 01/28/18 18:00 Ur Leukocyte Esterase Large (Negative) H 01/28/18 18:00 Urine Microscopic RBC 5-15 per hpf (0-3) H 01/28/18 18:00 Urine Microscopic WBC TNTC per hpf (0-3) H 01/28/18 18:00 Urine Bacteria Moderate per hpf (None-Few) H 01/28/18 18:00 - VTE Documentation of Mechanical Device: Venous foot pump, device Consult Discharge Plan - Plan Referrals: Karel Nick MD [Primary Care Provider] -
[2018-02-01] MEDS: Gabapentin 300 MG CAPSULE PO SCH (08:10)
[2018-02-01] MEDS: Lisinopril 20 MG TABLET PO SCH (08:10)
[2018-02-01] MEDS: Insulin LISPRO 300 UNITS/3 ML VIAL SQ SCH ×2 (08:11→12:00)
[2018-02-01] MEDS: cefTRIAXone 1,000 MG in Water for inj. (sterile) 20 ML 10 ML IVP SCH (08:11)
[2018-02-01 11:26] VITALS: BP 163/69
--- NOTE | 2018-02-01 12:31 | Discharge Summary ---
- NOTES TO OUTPATIENT PROVIDER Notes to Outpatient Provider: Patient is an elderly female patient with a history of atrial fibrillation, hypertension, diabetes and chronic kidney disease who was hospitalized here after a fall resulting in comminuted fracture involving the distal left femoral metadiaphysis in the periprosthetic region of the knee joint. She was admitted here and then orthopedics evaluated her. They recommended a revision surgery which was done 2 days back. Patient did have a decrease in her hemoglobin level and 2 units PRBC. She has been working with physical therapy and has been cleared for discharge to skilled rehabilitation she will be discharged once she has been accepted there. Patient is on Coumadin and her received 2 units fresh frozen plasma prior to surgery to correct her INR. She has been placed back on Coumadin after surgery. Orders not resulted at time of discharge: Pending orders 01/30/18 07:30 Culture,Anaerobic [RM] Routine Culture,Wound [RM] Routine 01/30/18 08:28 Surgical Pathology [PTH] Routine 01/30/18 10:27 EKG [ECG 12 lead ECG] [ECG] Stat 02/02/18 04:00 INR/PT [Prothrombin Time INR] [COAG] AM 0400 02/03/18 04:00 INR/PT [Prothrombin Time INR] [COAG] AM 0400 02/04/18 04:00 INR/PT [Prothrombin Time INR] [COAG] AM 0400 Date of Encounter: 02/01/18 Time of Encounter: 12:31 - Discharge Diagnosis (1) Knee fracture, left Priority: Primary Status: Acute (2) Type 2 diabetes mellitus Priority: Secondary Status: Chronic Qualifiers: Diabetes mellitus terminal gauger supervisor insulin use: without terminal gauger supervisor use Diabetes mellitus complication status: with kidney complications Diabetes mellitus complication detail: with chronic kidney disease Chronic kidney disease stage: stage 3 (moderate) Qualified Code(s): E11.22 - Type 2 diabetes mellitus with diabetic chronic kidney disease; N18.3 - Chronic kidney disease, stage 3 (moderate) (3) Paroxysmal a-fib Priority: Secondary Status: Chronic (4) Hypertension Priority: Secondary Status: Chronic Qualifiers: Hypertension type: essential hypertension Qualified Code(s): I10 - Essential (primary) hypertension (5) CKD (chronic kidney disease), stage II Priority: Secondary Status: Chronic (6) DVT prophylaxis Priority: Secondary Status: Acute (7) Anemia Priority: Secondary Status: Acute Qualifiers: Anemia type: other cause Other causes of anemia: acute posthemorrhagic Qualified Code(s): D62 - Acute posthemorrhagic anemia Hospital course: Ms. Blair is a 87 year old female Patient is an elderly female patient with a history of atrial fibrillation, hypertension, diabetes and chronic kidney disease who was hospitalized here after a fall resulting in comminuted fracture involving the distal left femoral metadiaphysis in the periprosthetic region of the knee joint. She was admitted here and then orthopedics evaluated her. They recommended a revision surgery which was done 2 days back. Patient did have a decrease in her hemoglobin level and 2 units PRBC. She has been working with physical therapy and has been cleared for discharge to skilled rehabilitation she will be discharged once she has been accepted there. Patient is on Coumadin and her received 2 units fresh frozen plasma prior to surgery to correct her INR. She has been placed back on Coumadin after surgery. Discharge discussed with: patient, nurse - Time Spent with Patient Total time spent providing and/or coordinating discharge services: Greater than 30 minutes (40 min) - Discharge Medications Prescriptions: RX: OxyCODONE Immed Rel [Roxicodone 5 MG] 10 mg PO Q4HR PRN 5 Days #20 tablet PRN Reason: Severe pain 7-10 Cefdinir [Omnicef] 300 mg PO BID #8 capsule Home Medications: RX: Atorvastatin [Lipitor] 40 mg PO HS 09/09/16 [History] RX: Gabapentin [Neurontin] 600 mg PO TID 09/09/16 [History] RX: Lisinopril [Zestril] 20 mg PO BID 09/09/16 [History] RX: Warfarin [Coumadin] 5 mg PO SUTUTHSA 09/09/16 [History] RX: Warfarin [Coumadin] 7.5 mg PO MOWEFR 09/09/16 [History] Cefdinir [Omnicef] 300 mg PO BID #8 capsule 02/01/18 [Rx] RX: Docusate [Colace] 100 mg PO BID capsule 02/01/18 [Rx] RX: OxyCODONE Immed Rel [Roxicodone 5 MG] 10 mg PO Q4HR PRN 5 Days #20 tablet 02/01/18 [Rx] Allergies/Adverse Reactions: Allergy/AdvReac Type Severity Reaction Status Date / Time acetaminophen [From Vicodin] AdvReac See Verified 01/02/15 09:31 Comments Cyclobenzaprine AdvReac Drowsy Verified 01/02/15 09:31 [From Flexeril] hydrocodone [From Vicodin] AdvReac See Verified 01/02/15 09:31 Comments Hydromorphone [From Dilaudid] AdvReac Drowsy Verified 01/02/15 09:31 pregabalin [From Lyrica] AdvReac Dizziness Verified 01/28/18 19:32 Date of admission: 01/28/18 15:39 Primary care physician: Karel Nick MD Consults: 01/28/18 15:18 Consult to Orthopedic Surgery [CONS] Stat Consulting Provider: [facility]oped[facility] Reason for Consult: knee fx Time Notified: 15:12 Call Completed: Yes 01/30/18 09:09 Consult to Occupational Therapy [CONS] Routine Comment: Evaluate, develop and implement POC Reason for Consult: post knee surgery - no knee motion Does patient have active BEDREST order?: No Is patient medically & hemodynamically stable?: Yes Consult to Orthopedic Navigator [CONS] [CONS] Routine Consult to Physical Therapy [CONS] Routine Comment: Evaluate, develop and impliment POC Reason for Consult: post knee surgery - no knee motion Does patient have active BEDREST order?: No Is patient medically & hemodynamically stable?: Yes Consult to Nurse Infection Control [CONS] Routine Reason for SW Consult: post op joint replacement RT Post Op Consult [CONS] Routine Discharging clinician: Felicity Grider Anticipated date of discharge: 02/01/18 - Constitutional Vitals: Temp Pulse Resp BP Pulse Ox 98.9 F 117 16 163/69 93 02/01/18 11:24 02/01/18 11:24 02/01/18 11:24 02/01/18 11:24 02/01/18 11:24 General appearance: Present: cooperative, A&O X 3, answers questions appropriately Exam: . - Respiratory Respiratory exam: Present: CTAB. Absent: accessory muscle use, rales, rhonchi, wheezes - Cardiovascular Cardiovascular exam: Present: RRR, +S1, +S2. Absent: diastolic murmur, gallop, rubs, systolic murmur - GI/Abdominal GI/Abdominal exam: Present: normal bowel sounds, soft, no peritoneal signs. Absent: distended, tenderness - Extremities Exam Extremities exam: Present: tenderness (Left knee. In brace), warm, radial pulses palpable and symmetrical. Absent: calf tenderness, cyanotic, pedal edema - Patient Status Disposition: Home, Self-Care Condition: Fair Functional capacity at discharge: bed bound Overall status at discharge: patient is progressing back to baseline - Discharge Instructions Instructions: Atrial Fibrillation (DC), Diabetes Mellitus Type 2 in Adults (DC), Chronic Hypertension (DC), Anemia (GEN) Follow Up With: Harinder Lo MD [Partnered Physician] - 02/17/18 1:00 pm (in 1-2 weeks per Ortho) Karel Nick MD [Primary Care Provider] - (in 1-2 weeks) Additional Instructions: Discharge Instructions: Total Knee Replacement Please call [facility] ([phone]), your Primary Care Physician, or report to the Emergency Room if you have any of the following symptoms: Nausea, vomiting, fever greater that 101.5, swelling, chest pain, shortness of breath, increased pain/redness/drainage/odor for your incision site, numbness/tingling, or any other concerning symptoms. ACTIVITY:Weight-bearing as tolerated. You may progress off support (crutches or walker) as tolerated. Incentive Spirometer 10 times an hour. MEDICATIONS: Upon discharge resume your home medications. Take all the medications as prescribed. Take a stool softener if taking narcotic pain medications. Stool softeners are only effective if you drink enough fluids. Drink 6-8 glass of water or fluids a day, unless this is not allowed for another health problem. Despite using stool softeners, if you haven't had a bowel movement in 3 days, please switch to a gentle laxative. Gentle laxatives are sold over the counter. You should have a bowel movement within 24 hours, if not call the office. You will be discharged from the hospital with a prescription for pain medication. You are encouraged to decrease the use of narcotic pain medication as tolerated. Should you require a refill, please call the office. [facility] prescribes narcotic pain medication for only 4-6 weeks after surgery. If you require pain medication beyond this time period, you may be referred to your Primary Care Physician or to the Pain Clinic for further evaluation. Plan ahead for refills on pain medication as many narcotics either need to be picked up at the office or mailed. It is best to call 48-72 hours in advance of needing a prescription refill so you don't run out of medication. To help control the post-operative pain, you may take NSAIDs (Aleve,Advil, Motrin, Ibuprofen, Naprosyn) or Tylenol as prescribed on the bottle in addition to the pain medication. ANTICOAGULATION (blood thinners): Continue your Aspirin, Lovenox or Coumadin as prescribed to help prevent a blood clot in the leg or in the lungs. As long as your incision remains dry and you tolerate the NSAIDs (Aleve, Advil, Motrin, ibuprofen, naprosyn), it is OK to use the NSAIDS while you are taking your anticoagulation medication. Should your incision start to drain, stop the NSAID and contact our office. Common symptoms of blood clot in the legs include: localized pain, swelling, calf tenderness, redness or discoloration of the skin. Blood clot in the lung symptoms include: shortness of breath, rapid pulse, sweating, and chest pain that worsens with deep breathing, coughing up blood, lightheadedness, feelings of anxiety. If you experience any of these symptoms notify your physician immediately, go to the emergency room, or if having trouble breathing, call 911. WOUND CARE: Leave the dressing on for 7 to 10days. You may change the dressing if it becomes saturated greater than 50%. Do not get the dressing wet at anytime. Wash your hands with antibacterial soap, rinse and dry prior to any wound care. If you have charlene the visiting nurse or rehab facility can remove the stapes 10-14 days after surgery and place steri-strips across the wound. Leave the steri-strips in place until they fall off on their won. You may let water from the shower run on top of the steri-strips. If you do not have a visiting nurse or rehab facility, you will need to return to the office at 10-14 days for the charlene to be removed. If you have itching or redness around the dressing call the office. FOLLOW-UP: Please follow up with your surgeon in the orthopedic clinic in 4 weeks from the day of surgery. If you have charlene that need to be removed, you will need to come back to the office in 10-14 days from the day of surgery. - Diet and Activity Activity: increase activity as tolerated Diet: diabetic diet, low fat, low cholesterol, low salt diet - VTE Documentation of Mechanical Device: Venous foot pump, device
--- NOTE | 2018-02-01 12:46 | Physician Discharge Referral ---
ExtendedCare Referral Info Provider in Charge after Transfer: PCP Institutional Level of Care: Skilled - Diagnosis (1) Knee fracture, left Priority: Primary Status: Acute (2) Type 2 diabetes mellitus Priority: Secondary Status: Chronic (3) Paroxysmal a-fib Priority: Secondary Status: Chronic (4) Hypertension Priority: Secondary Status: Chronic (5) CKD (chronic kidney disease), stage II Priority: Secondary Status: Chronic (6) Anemia Priority: Secondary Status: Acute (7) DVT prophylaxis Priority: Secondary Status: Acute Prognosis: Fair Aware of Diagnosis: Patient Aware of Prognosis: Patient - Transfer Medications Prescriptions: OxyCODONE Immed Rel [Roxicodone 5 MG] 10 mg PO Q4HR PRN 5 Days #20 tablet PRN Reason: Severe pain 7-10 Cefdinir [Omnicef] 300 mg PO BID #8 capsule Home Medications: Atorvastatin [Lipitor] 40 mg PO HS 09/09/16 [History] Gabapentin [Neurontin] 600 mg PO TID 09/09/16 [History] Lisinopril [Zestril] 20 mg PO BID 09/09/16 [History] Warfarin [Coumadin] 5 mg PO SUTUTHSA 09/09/16 [History] Warfarin [Coumadin] 7.5 mg PO MOWEFR 09/09/16 [History] Cefdinir [Omnicef] 300 mg PO BID #8 capsule 02/01/18 [Rx] Docusate [Colace] 100 mg PO BID capsule 02/01/18 [Rx] OxyCODONE Immed Rel [Roxicodone 5 MG] 10 mg PO Q4HR PRN 5 Days #20 tablet 02/01/18 [Rx] Allergies/Adverse Reactions: Allergy/AdvReac Type Severity Reaction Status Date / Time acetaminophen [From Vicodin] AdvReac See Verified 01/02/15 09:31 Comments Cyclobenzaprine AdvReac Drowsy Verified 01/02/15 09:31 [From Flexeril] hydrocodone [From Vicodin] AdvReac See Verified 01/02/15 09:31 Comments Hydromorphone [From Dilaudid] AdvReac Drowsy Verified 01/02/15 09:31 pregabalin [From Lyrica] AdvReac Dizziness Verified 01/28/18 19:32 - Respiratory Orders Smoking Cessation: Smoking cessation has been advised. For more information, call the [place] Tobacco Quit Line at 0-341-FXHE-NOW. - Ancillary Orders May consult with Dentist, Assistant Professor Of Art, Research Nurse Practitioner PRN - Advance Directives Code Status: Full Code - Mobility Orders Ambulate (per PT) - Rehabiliation Orders Rehab Potential: Fair Rehab Orders: Evaluation for Physical Therapy, Evaluation for Occupational Therapy - Diet Orders No Concentrated Sweets (Diabetic), Cardiac CERTIFICATION: I certify that the transfer of the above named patient to an Extended Care Facility is necessary for the continuing treatment of the diagnosis listed. The above information is true and accurate reflection of patient's current condition. Confidential - Redisclosure prohibited without a patient's written consent.
[2018-02-01] MEDS ORDERED: *HR* Warfarin 7.5 MG TABLET PO SCH (18:00)
--- NOTE | 2018-02-02 17:08 | Electrocardiograph Report ---
[address] [place], [place] [address] Test Date: 2018-01-29 Pat Name: Jillian Blair Department: 114 Room: [facility] Gender: F Carpenter Helper [employer] Flooring: : 1930 Requested By: Felicity Grider Order Number: [id number] Reading MD: Sheldon Song Measurements Intervals [place] Rate: 120 P: 46 WV: 155 QRS: 4 QRSD: 95 T: 53 QT: 314 QTc: 386 Interpretive Statements SINUS TACHYCARDIA MODERATE ST DEPRESSION Electronically Signed On 02-02-2018 17:06:51 EDT by Sheldon Song
== END 2018-02-01 14:20 | disposition home or self-care (01) | DRG 467 ==
LOC: EMEROOARM 11:36 → 3NENU 15:39 → SUATTDRO 15:39 → 3NENU 16:21
PROVIDERS: ADMIT Internal Medicine; ATTEND Internal Medicine

== ENCOUNTER 2019-02-01 18:37 | Inpatient (IN) ==
[2019-02-01 19:54] LABS: Basophils % 0.5 %; Eosinophils # 0.1 K/mcL (0.0-0.6); Eosinophils % 2.7 %; Hematocrit 35.5 % (35.3-44.9); Hemoglobin 11.5 g/dL (11.5-15.4); Immature Granulocytes % 0.3 % (0-4); Lymphocytes # 0.9 K/mcL (0.6-4.6); Lymphocytes % 23.6 %; Mean Corpuscular HGB Conc 32.4 g/dL (31.6-35.5); Mean Corpuscular Hemoglobin 26.1 pg (28.0-33.3); Mean Corpuscular Volume 80.7 fL (83.0-100.0); Monocytes # 0.5 K/mcL (0.0-1.3); Monocytes % 12.9 %; Neutrophils # 2.2 K/mcL (1.6-8.9); Platelet Count 168 K/mcL (140-400); Red Cell Distribution Width 14.1 % (11.5-14.5); White Blood Count 3.7 K/mcL (4.3-11.1)
[2019-02-01] MEDS ORDERED: 0.9 % Sodium Chloride 1,000 ML IVC ONE (20:01)
[2019-02-01] MEDS ORDERED: cefTRIAXone 1,000 MG in 0.9 % Sodium Chloride Mini Bag 100 ML IVPB ONE (20:01)
[2019-02-01 20:12] LABS: Potassium 3.6 mEq/L (3.5-5.1)
[2019-02-01] MEDS ORDERED: cefTRIAXone 1,000 MG in Water for inj. (sterile) 10 ML IVP ONE (20:30)
[2019-02-01 21:39] LABS: Bilirubin,Urine Negative (Negative); Blood,Urine Small (Negative); Clarity,Urine Clear (Clear); Color,Urine Yellow (Yellow); Glucose,Urine (UA) Normal (Normal); Ketones,Urine Negative (Negative); Leukocyte Esterase,Urine Trace (Negative); Nitrite,Urine Negative (Negative); Protein,Urine Negative (Neg-Trace); Specific Gravity,Urine < 1.005 (1.010-1.025); Urobilinogen,Urine Normal (Normal)
[2019-02-01 21:43] LABS: Bacteria,Urine None Seen per hpf (None-Few); Hyaline Casts,Urine None Seen per lpf (None-Few); RBC,Urine 0-3 per hpf (0-3); Squamous Epithelial Cell,Urine Few per lpf (None-Few); WBC,Urine 0-3 per hpf (0-3)
[2019-02-01] MEDS ORDERED: Ringers Solution, Lactated 1,000 ML IVC SCH (22:30)
[2019-02-02 00:03] LABS: INR 1.8; Prothrombin Time 20.4 Seconds (9.4-12.1)
[2019-02-02] MEDS: Gabapentin 300 MG CAPSULE PO SCH ×3 (01:09→16:14)
[2019-02-02 03:59] LABS: INR 1.9; Prothrombin Time 21.7 Seconds (9.4-12.1)
[2019-02-02] MEDS: *HR* Heparin 5,000 UNIT/ML VIAL SQ SCH ×2 (05:31→17:17)
[2019-02-02] MEDS ORDERED: D5% in Water 1,000 ML IVC PRN (09:09)
[2019-02-02] MEDS ORDERED: *HR* Dextrose 50 % in Water (Syg) 50 ML SYRINGE IVP PRN (09:09)
[2019-02-02] MEDS ORDERED: Dextrose Gel 15 GM/37.5 ML TUBE PO PRN ×2 (09:09)
[2019-02-02] MEDS: Lisinopril 20 MG TABLET PO SCH (10:50)
[2019-02-02] MEDS: cefTRIAXone 2,000 MG in Water for inj. (sterile) 20 ML IVPB SCH (10:50)
[2019-02-02] MEDS: Insulin LISPRO 300 UNITS/3 ML VIAL SQ SCH ×2 (12:49→17:17)
[2019-02-02] MEDS ORDERED: *HR* Warfarin 7.5 MG TABLET PO ONE (18:00)
[2019-02-02] MEDS ORDERED: Warfarin perPT PO PRN (18:00)
[2019-02-03] MEDS: Gabapentin 300 MG CAPSULE PO SCH ×2 (00:02→08:53)
[2019-02-03] MEDS: *HR* Heparin 5,000 UNIT/ML VIAL SQ SCH (05:30)
[2019-02-03 06:07] LABS: Hematocrit 33.3 % (35.3-44.9); Hemoglobin 10.4 g/dL (11.5-15.4); Mean Corpuscular HGB Conc 31.2 g/dL (31.6-35.5); Mean Corpuscular Hemoglobin 25.7 pg (28.0-33.3); Mean Corpuscular Volume 82.4 fL (83.0-100.0); Mean Platelet Volume 13.2 fL (9.4-12.4); Platelet Count 182 K/mcL (140-400); Red Blood Count 4.04 M/mcL (3.82-4.97); Red Cell Distribution Width 13.8 % (11.5-14.5); White Blood Count 3.7 K/mcL (4.3-11.1)
[2019-02-03 06:15] LABS: INR 2.2; Prothrombin Time 24.7 Seconds (9.4-12.1)
[2019-02-03 06:33] LABS: BUN/Creatinine Ratio 14 (6-26); Blood Urea Nitrogen 13 mg/dL (8-23); Calcium 9.1 mg/dL (8.6-10.3); Carbon Dioxide 27 mEq/L (23-29); Chloride 106 mEq/L (98-107); Glucose 99 mg/dL (70-105); Osmolality,Calculated 292 (280-300); Potassium 3.9 mEq/L (3.5-5.1); Sodium 141 mEq/L (136-145); eGFR For African Americans > 60 (> 60); eGFR For Non-African Americans 55 (> 60)
[2019-02-03] MEDS: Insulin LISPRO 300 UNITS/3 ML VIAL SQ SCH (08:01)
[2019-02-03] MEDS: cefTRIAXone 2,000 MG in Water for inj. (sterile) 20 ML IVPB SCH (08:53)
[2019-02-03] MEDS: Lisinopril 20 MG TABLET PO SCH (08:53)
[2019-02-03 10:20] VITALS: BP 124/78
[2019-02-03] MEDS ORDERED: *HR* Warfarin 5 MG TABLET PO ONE (18:00)
[2019-02-06] MEDS ORDERED: Cholecalciferol (D-3) 1,000 UNIT (25MCG) TABLET PO SCH (09:00)
== END 2019-02-03 12:37 | disposition home or self-care (01) | DRG 690 ==
LOC: EMEROOARM 18:37 → 3ANU 18:37 → SUATTDRO 21:58 → 3ANU 22:19
PROVIDERS: ADMIT Internal Medicine; ATTEND Internal Medicine

== ENCOUNTER 2019-02-23 15:27 | Observation (INO) ==
[2019-02-23] MEDS ORDERED: 0.9 % Sodium Chloride 500 ML IVC ONE (15:42)
[2019-02-23 16:19] LABS: Basophils # 0.1 K/mcL (0.0-0.2); Eosinophils # 0.1 K/mcL (0.0-0.6); Hematocrit 39.3 % (35.3-44.9); Hemoglobin 12.8 g/dL (11.5-15.4); Immature Granulocytes % 0.2 % (0-4); Lymphocytes # 1.7 K/mcL (0.6-4.6); Lymphocytes % 28.1 %; Mean Corpuscular HGB Conc 32.6 g/dL (31.6-35.5); Mean Corpuscular Hemoglobin 25.9 pg (28.0-33.3); Mean Corpuscular Volume 79.4 fL (83.0-100.0); Mean Platelet Volume 13.1 fL (9.4-12.4); Monocytes # 0.8 K/mcL (0.0-1.3); Neutrophils # 3.4 K/mcL (1.6-8.9); Platelet Count 216 K/mcL (140-400); Red Blood Count 4.95 M/mcL (3.82-4.97); Red Cell Distribution Width 14.5 % (11.5-14.5); Segmented Neutrophils % 56.7 %; White Blood Count 5.9 K/mcL (4.3-11.1)
[2019-02-23 16:43] LABS: Albumin/Globulin Ratio 1.7 (1.1-2.2); Bilirubin,Direct 0.1 mg/dL (0.0-0.2); Bilirubin,Indirect 0.3 mg/dL (0.0-1.0); Bilirubin,Total 0.4 mg/dL (0.3-1.0); Calcium 9.7 mg/dL (8.6-10.3); Globulin 2.4 g/dL (2.4-3.5); Potassium 3.6 mEq/L (3.5-5.1); Total Protein 6.4 g/dL (6.4-8.9); Troponin I 0.03 ng/mL (< 0.04)
[2019-02-23 17:16] LABS: Bilirubin,Urine Moderate (Negative); Blood,Urine Small (Negative); Clarity,Urine Clear (Clear); Color,Urine Yellow (Yellow); Glucose,Urine (UA) Normal (Normal); Ketones,Urine 15 mg/dL (Negative); Leukocyte Esterase,Urine Trace (Negative); Nitrite,Urine Negative (Negative); PH,Urine 5.5 pH Units (5.0-8.0); Protein,Urine 30 mg/dL (Neg-Trace); Specific Gravity,Urine 1.022 (1.010-1.025); Urobilinogen,Urine Normal (Normal)
[2019-02-23 17:21] LABS: Bacteria,Urine None Seen per hpf (None-Few); Hyaline Casts,Urine None Seen per lpf (None-Few); Squamous Epithelial Cell,Urine Many per lpf (None-Few); WBC,Urine 0-3 per hpf (0-3)
[2019-02-23] MEDS ORDERED: Ondansetron 4 MG/2 ML VIAL IVP PRN (17:36)
[2019-02-23] MEDS ORDERED: Naloxone 0.4 MG/ML INJ IVP PRN (17:36)
[2019-02-23 17:49] LABS: INR 1.8; Prothrombin Time 19.9 Seconds (9.4-12.1)
[2019-02-23] MEDS ORDERED: Warfarin perPT PO PRN (18:00)
[2019-02-23] MEDS ORDERED: *HR* Labetalol 20 MG/4 ML SYRINGE IVP PRN (18:00)
[2019-02-23] MEDS: Ringers Solution, Lactated 1,000 ML IVC SCH (19:41)
[2019-02-23] MEDS ORDERED: *HR* Warfarin 7.5 MG TABLET PO ONE (20:00)
[2019-02-24 01:03] LABS: Hemoglobin 11.9 g/dL (11.5-15.4); Mean Corpuscular HGB Conc 32.2 g/dL (31.6-35.5); Mean Corpuscular Hemoglobin 25.5 pg (28.0-33.3); Mean Corpuscular Volume 79.2 fL (83.0-100.0); Mean Platelet Volume 13.3 fL (9.4-12.4); Platelet Count 188 K/mcL (140-400); Red Blood Count 4.67 M/mcL (3.82-4.97); Red Cell Distribution Width 14.6 % (11.5-14.5); White Blood Count 5.5 K/mcL (4.3-11.1)
[2019-02-24 01:08] LABS: INR 1.9
[2019-02-24 01:24] LABS: BUN/Creatinine Ratio 24 (6-26); Blood Urea Nitrogen 25 mg/dL (8-23); Calcium 9.2 mg/dL (8.6-10.3); Carbon Dioxide 25 mEq/L (23-29); Chloride 109 mEq/L (98-107); Glucose 97 mg/dL (70-105); Magnesium 1.7 mg/dL (1.6-2.6); Osmolality,Calculated 300 (280-300); Potassium 3.6 mEq/L (3.5-5.1); Sodium 143 mEq/L (136-145); eGFR For African Americans > 60 (> 60); eGFR For Non-African Americans 51 (> 60)
[2019-02-24] MEDS: Ringers Solution, Lactated 1,000 ML IVC SCH (06:20)
[2019-02-24] MEDS ORDERED: Gabapentin 300 MG CAPSULE PO SCH (09:00)
[2019-02-24] MEDS ORDERED: amLODIPine 5 MG TABLET PO SCH (09:00)
[2019-02-24 09:48] LABS: Troponin I 0.03 ng/mL (< 0.04)
[2019-02-24 12:12] VITALS: BP 143/68
[2019-02-24] MEDS ORDERED: *HR* Warfarin 5 MG TABLET PO ONE (18:00)
== END 2019-02-24 14:54 | disposition home or self-care (01) ==
LOC: EMEROOARM 15:27 → 3BNU 15:27 → SUATTDRO 18:51 → 3BNU 20:20
PROVIDERS: ADMIT Internal Medicine; ATTEND Internal Medicine

== ENCOUNTER 2019-04-16 11:45 | Observation (INO) ==
[2019-04-16] MEDS ORDERED: 0.9 % Sodium Chloride 1,000 ML IVC ONE (12:25)
[2019-04-16] MEDS ORDERED: Ondansetron 4 MG/2 ML VIAL IVP ONE (12:25)
[2019-04-16 12:57] LABS: Basophils # 0.1 K/mcL (0.0-0.2); Basophils % 0.8 %; Eosinophils # 0.1 K/mcL (0.0-0.6); Hematocrit 43.8 % (35.3-44.9); Hemoglobin 14.1 g/dL (11.5-15.4); Immature Granulocytes % 0.1 % (0-4); Lymphocytes # 1.7 K/mcL (0.6-4.6); Lymphocytes % 22.8 %; Mean Corpuscular HGB Conc 32.2 g/dL (31.6-35.5); Mean Corpuscular Hemoglobin 25.5 pg (28.0-33.3); Mean Corpuscular Volume 79.3 fL (83.0-100.0); Mean Platelet Volume 13.9 fL (9.4-12.4); Monocytes # 0.6 K/mcL (0.0-1.3); Monocytes % 8.8 %; Neutrophils # 4.9 K/mcL (1.6-8.9); Platelet Count 242 K/mcL (140-400); Red Blood Count 5.52 M/mcL (3.82-4.97); Red Cell Distribution Width 14.6 % (11.5-14.5); Segmented Neutrophils % 66.5 %; White Blood Count 7.3 K/mcL (4.3-11.1)
[2019-04-16 13:25] LABS: BUN/Creatinine Ratio 22 (6-26); Blood Urea Nitrogen 27 mg/dL (8-23); Carbon Dioxide 23 mEq/L (23-29); Chloride 103 mEq/L (98-107); Glucose 119 mg/dL (70-105); Osmolality,Calculated 292 (280-300); Potassium 4.1 mEq/L (3.5-5.1); Sodium 138 mEq/L (136-145); Troponin I < 0.03 ng/mL (< 0.04); eGFR For African Americans 49 (> 60); eGFR For Non-African Americans 41 (> 60)
[2019-04-16] MEDS ORDERED: Naloxone 0.4 MG/ML INJ IVP PRN (15:24)
[2019-04-16] MEDS ORDERED: 0.9 % Sodium Chloride 1,000 ML IVC SCH (15:30)
[2019-04-16 16:46] LABS: INR 2.2; Prothrombin Time 24.7 Seconds (9.4-12.1)
[2019-04-16 17:36] LABS: Bilirubin,Urine Negative (Negative); Blood,Urine Small (Negative); Clarity,Urine Clear (Clear); Color,Urine Yellow (Yellow); Glucose,Urine (UA) Normal (Normal); Ketones,Urine 15 mg/dL (Negative); Leukocyte Esterase,Urine Negative (Negative); Nitrite,Urine Negative (Negative); Protein,Urine Negative (Neg-Trace); Urobilinogen,Urine Normal (Normal)
[2019-04-16 17:38] LABS: Bacteria,Urine None Seen per hpf (None-Few); Hyaline Casts,Urine None Seen per lpf (None-Few); Squamous Epithelial Cell,Urine Moderate per lpf (None-Few); WBC,Urine 0-3 per hpf (0-3)
[2019-04-16] MEDS ORDERED: Warfarin perPT PO PRN (18:00)
[2019-04-16] MEDS ORDERED: *HR* Warfarin 5 MG TABLET PO ONE (18:51)
[2019-04-16] MEDS: carvediloL 6.25 MG TABLET PO SCH (19:47)
[2019-04-17 01:21] LABS: Hematocrit 39.2 % (35.3-44.9); Mean Corpuscular HGB Conc 31.9 g/dL (31.6-35.5); Mean Corpuscular Hemoglobin 25.5 pg (28.0-33.3); Mean Platelet Volume 14.4 fL (9.4-12.4); Platelet Count 209 K/mcL (140-400); Red Cell Distribution Width 14.6 % (11.5-14.5); White Blood Count 6.8 K/mcL (4.3-11.1)
[2019-04-17 01:24] LABS: Hemoglobin 12.5 g/dL (11.5-15.4)
[2019-04-17 01:34] LABS: INR 2.6; Prothrombin Time 29.7 Seconds (9.4-12.1)
[2019-04-17 01:50] LABS: Potassium 4.1 mEq/L (3.5-5.1)
[2019-04-17] MEDS: carvediloL 6.25 MG TABLET PO SCH ×2 (08:49→18:05)
[2019-04-17] MEDS: amLODIPine 5 MG TABLET PO SCH (08:49)
[2019-04-17] MEDS ORDERED: Ondansetron 4 MG/2 ML VIAL IVP PRN (10:26)
[2019-04-17] MEDS ORDERED: *HR* Warfarin 5 MG TABLET PO ONE (18:00)
[2019-04-18 01:17] LABS: Basophils # 0.1 K/mcL (0.0-0.2); Basophils % 0.9 %; Eosinophils # 0.2 K/mcL (0.0-0.6); Eosinophils % 2.7 %; Hematocrit 39.1 % (35.3-44.9); Immature Granulocytes % 0.3 % (0-4); Lymphocytes # 1.8 K/mcL (0.6-4.6); Lymphocytes % 27.1 %; Mean Corpuscular HGB Conc 30.7 g/dL (31.6-35.5); Mean Corpuscular Hemoglobin 25.3 pg (28.0-33.3); Mean Corpuscular Volume 82.3 fL (83.0-100.0); Monocytes # 0.6 K/mcL (0.0-1.3); Monocytes % 9.4 %; Platelet Count 195 K/mcL (140-400); Red Blood Count 4.75 M/mcL (3.82-4.97); Red Cell Distribution Width 14.4 % (11.5-14.5); Segmented Neutrophils % 59.6 %; White Blood Count 6.7 K/mcL (4.3-11.1)
[2019-04-18 01:19] LABS: INR 2.3; Prothrombin Time 25.7 Seconds (9.4-12.1)
[2019-04-18 01:37] LABS: Calcium 9.1 mg/dL (8.6-10.3); Potassium 3.8 mEq/L (3.5-5.1)
[2019-04-18] MEDS: carvediloL 6.25 MG TABLET PO SCH (07:44)
[2019-04-18] MEDS: amLODIPine 5 MG TABLET PO SCH (07:44)
[2019-04-18 11:31] VITALS: BP 140/73
[2019-04-18] MEDS ORDERED: Cyanocobalamin (B-12) 1,000 MCG/ML VIAL IM ONE (12:01)
[2019-04-18] MEDS ORDERED: *HR* Warfarin 5 MG TABLET PO ONE (18:00)
== END 2019-04-18 14:28 | disposition home health service (06) ==
LOC: EMEROOARM 11:45 → 3NENU 11:45 → SUATTDRO 15:37 → 3NENU 18:46
PROVIDERS: ADMIT Family Medicine; ATTEND Student in an Organized Health Care Education/Training Program

== ENCOUNTER 2019-11-28 14:49 | Observation (INO) ==
[2019-11-28 15:17] LABS: Immature Granulocytes % 0.4 % (0-4); Mean Corpuscular Hemoglobin 25.7 pg (28.0-33.3)
[2019-11-28 15:20] LABS: Basophils # 0.1 K/mcL (0.0-0.2); Basophils % 1.3 %; Eosinophils # 0.1 K/mcL (0.0-0.6); Hemoglobin 11.3 g/dL (11.5-15.4); Immature Platelets 15.6 % (1.1-6.1); Lymphocytes # 1.6 K/mcL (0.6-4.6); Lymphocytes % 28.2 %; Mean Corpuscular HGB Conc 30.5 g/dL (31.6-35.5); Mean Corpuscular Volume 84.3 fL (83.0-100.0); Mean Platelet Volume 13.7 fL (9.4-12.4); Monocytes # 0.4 K/mcL (0.0-1.3); Monocytes % 7.2 %; Neutrophils # 3.4 K/mcL (1.6-8.9); Platelet Count 182 K/mcL (140-400); Red Blood Count 4.39 M/mcL (3.82-4.97); Red Cell Distribution Width 14.1 % (11.5-14.5); Segmented Neutrophils % 60.9 %; White Blood Count 5.5 K/mcL (4.3-11.1)
[2019-11-28 15:31] LABS: INR 2.5; Prothrombin Time 28.1 Seconds (9.4-12.1)
[2019-11-28 15:34] LABS: Activated Partial Thrombo Time 44.3 Seconds (26.0-36.0)
[2019-11-28 15:36] LABS: BUN/Creatinine Ratio 18 (6-26); Blood Urea Nitrogen 20 mg/dL (8-23); Calcium 9.6 mg/dL (8.6-10.3); Carbon Dioxide 26 mEq/L (23-29); Chloride 106 mEq/L (98-107); Glucose 178 mg/dL (70-105); Osmolality,Calculated 295 (280-300); Potassium 3.9 mEq/L (3.5-5.1); Sodium 139 mEq/L (136-145); Troponin I < 0.03 ng/mL (< 0.04); eGFR For African Americans 57 (> 60); eGFR For Non-African Americans 47 (> 60)
[2019-11-28] MEDS ORDERED: Naloxone 0.4 MG/ML INJ IVP PRN (17:04)
[2019-11-28] MEDS ORDERED: MOM Conc 10 ML UD.LIQ PO PRN (17:04)
[2019-11-28] MEDS ORDERED: Acetaminophen 325 MG TABLET PO PRN (17:04)
[2019-11-28] MEDS ORDERED: *HR* Warfarin 5 MG TABLET PO SCH (17:30)
[2019-11-28] MEDS: Gabapentin 300 MG CAPSULE PO SCH (20:55)
[2019-11-29 02:27] LABS: Hemoglobin 10.8 g/dL (11.5-15.4); Mean Corpuscular HGB Conc 30.9 g/dL (31.6-35.5)
[2019-11-29 02:28] LABS: Prothrombin Time 34.5 Seconds (9.4-12.1)
[2019-11-29 02:29] LABS: Hematocrit 34.9 % (35.3-44.9); Mean Corpuscular Hemoglobin 25.8 pg (28.0-33.3); Mean Corpuscular Volume 83.3 fL (83.0-100.0); Red Blood Count 4.19 M/mcL (3.82-4.97)
[2019-11-29 02:30] LABS: Activated Partial Thrombo Time 46.1 Seconds (26.0-36.0)
[2019-11-29 02:47] LABS: Calcium 9.4 mg/dL (8.6-10.3); Magnesium 1.9 mg/dL (1.6-2.6); Potassium 4.3 mEq/L (3.5-5.1)
[2019-11-29 09:05] VITALS: BP 164/73
[2019-11-29] MEDS: Gabapentin 300 MG CAPSULE PO SCH (09:12)
[2019-11-30] MEDS ORDERED: *HR* Warfarin 7.5 MG TABLET PO SCH (18:00)
== END 2019-11-29 10:51 | disposition home or self-care (01) ==
LOC: 3BNU 14:49 → EMEROOARM 14:49 → 3BNU 17:45
PROVIDERS: ADMIT Student in an Organized Health Care Education/Training Program; ATTEND Student in an Organized Health Care Education/Training Program

== ENCOUNTER 2019-12-16 16:27 | Inpatient (IN) ==
[2019-12-16] MEDS ORDERED: 0.9 % Sodium Chloride 1,000 ML IVC ONE (16:31)
[2019-12-16 17:13] LABS: Basophils % 0.3 %; Hematocrit 43.6 % (35.3-44.9); Hemoglobin 14.2 g/dL (11.5-15.4); Immature Granulocytes % 0.3 % (0-4); Lymphocytes # 0.8 K/mcL (0.6-4.6); Lymphocytes % 10.8 %; Mean Corpuscular HGB Conc 32.6 g/dL (31.6-35.5); Mean Corpuscular Hemoglobin 26.1 pg (28.0-33.3); Mean Platelet Volume 13.7 fL (9.4-12.4); Monocytes # 0.5 K/mcL (0.0-1.3); Monocytes % 6.3 %; Platelet Count 177 K/mcL (140-400); Red Blood Count 5.45 M/mcL (3.82-4.97); Red Cell Distribution Width 13.7 % (11.5-14.5); Segmented Neutrophils % 82.3 %; White Blood Count 7.6 K/mcL (4.3-11.1)
[2019-12-16 17:14] LABS: INR 1.2; Neutrophils # 6.3 K/mcL (1.6-8.9); Prothrombin Time 13.9 Seconds (9.4-12.1)
[2019-12-16 17:14] LABS: Amorphous Sediment,Urine Few per hpf (None-Few); Bacteria,Urine Few per hpf (None-Few); Bilirubin,Urine Negative (Negative); Blood,Urine Trace (Negative); Clarity,Urine Turbid (Clear); Color,Urine Yellow (Yellow); Glucose,Urine (UA) Normal (Normal); Hyaline Casts,Urine Few per lpf (None Seen); Ketones,Urine 10 mg/dL (Negative); Leukocyte Esterase,Urine Negative (Negative); Mucus,Urine Few per lpf (None-Few); Nitrite,Urine Negative (Negative); PH,Urine 5.5 pH Units (5.0-8.0); Protein,Urine 70 mg/dL (Neg-Trace); RBC,Urine 0-3 per hpf (0-3); Squamous Epithelial Cell,Urine Few per hpf (None-Few); Urobilinogen,Urine Normal (Normal); WBC,Urine 0-3 per hpf (0-3)
[2019-12-16 17:32] LABS: Alanine Aminotransferase 14 Units/L (7-52); Albumin 3.8 g/dL (3.5-5.7); Albumin/Globulin Ratio 1.1 (1.1-2.2); Alkaline Phosphatase 68 Units/L (34-104); Aspartate Amino Transferase 32 Units/L (13-39); BUN/Creatinine Ratio 24 (6-26); Bilirubin,Indirect 0.6 mg/dL (0.0-1.0); Bilirubin,Total 0.6 mg/dL (0.3-1.0); Blood Urea Nitrogen 29 mg/dL (8-23); Calcium 9.5 mg/dL (8.6-10.3); Carbon Dioxide 23 mEq/L (23-29); Chloride 99 mEq/L (98-107); Ethanol < 10 mg/dL (Less than 10); Globulin 3.5 g/dL (2.4-3.5); Glucose 133 mg/dL (70-105); Osmolality,Calculated 288 (280-300); Potassium 3.8 mEq/L (3.5-5.1); Sodium 135 mEq/L (136-145); Total Protein 7.3 g/dL (6.4-8.9); Troponin I 0.03 ng/mL (< 0.04); eGFR For African Americans 51 (> 60); eGFR For Non-African Americans 42 (> 60)
[2019-12-16 17:33] LABS: Magnesium 1.9 mg/dL (1.6-2.6)
[2019-12-16 17:43] LABS: Thyroid Stimulating Hormone 2.009 mcIU/mL (0.340-5.600)
[2019-12-16] MEDS ORDERED: Azithromycin 500 MG in 0.9 % Sodium Chloride 250 ML IVPB ONE (17:48)
[2019-12-16] MEDS ORDERED: cefTRIAXone 1,000 MG in Water for inj. (sterile) 10 ML IVP ONE ×2 (17:48→17:50)
[2019-12-16] MEDS ORDERED: Naloxone 0.4 MG/ML INJ IVP PRN (18:02)
[2019-12-16] MEDS ORDERED: 0.9 % Sodium Chloride 1,000 ML IVC SCH (18:45)
[2019-12-16] MEDS ORDERED: Warfarin perPT PO PRN (20:00)
[2019-12-16 20:27] LABS: Adenovirus Not Detected (Not Detect); Bordetella Pertussis Not Detected (Not Detect); Chlamydophila pneumoniae Not Detected (Not Detect); Coronavirus 229E Not Detected (Not Detect); Coronavirus HKU1 Not Detected (Not Detect); Coronavirus NL63 Not Detected (Not Detect); Coronavirus OC43 Not Detected (Not Detect); Human Metapneumovirus Not Detected (Not Detect); Human Rhinovirus/Enterovirus Not Detected (Not Detect); Influenza A Subtype 2009 H1 Not Detected (Not Detect); Influenza B Not Detected (Not Detect); Mycoplasma pneumoniae Not Detected (Not Detect); Parainfluenza Virus 1 Not Detected (Not Detect); Parainfluenza Virus 2 Not Detected (Not Detect); Parainfluenza Virus 3 Not Detected (Not Detect); Parainfluenza Virus 4 Not Detected (Not Detect); Respiratory Syncytial Virus Not Detected (Not Detect); SARS-CoV-2 DETECTED (Not Detect)
[2019-12-16] MEDS ORDERED: *HR* Warfarin 5 MG TABLET PO ONE (20:49)
[2019-12-16] MEDS: Gabapentin 300 MG CAPSULE PO SCH (23:29)
[2019-12-17 05:50] LABS: Mean Corpuscular Volume 81.4 fL (83.0-100.0); Red Cell Distribution Width 13.8 % (11.5-14.5)
[2019-12-17 05:52] LABS: Basophils % 0.5 %; Hematocrit 40.6 % (35.3-44.9); Hemoglobin 12.6 g/dL (11.5-15.4); Immature Granulocytes % 0.5 % (0-4); Lymphocytes # 0.7 K/mcL (0.6-4.6); Lymphocytes % 11.3 %; Mean Corpuscular Hemoglobin 25.3 pg (28.0-33.3); Mean Platelet Volume 13.6 fL (9.4-12.4); Monocytes # 0.3 K/mcL (0.0-1.3); Monocytes % 5.3 %; Neutrophils # 4.9 K/mcL (1.6-8.9); Platelet Count 122 K/mcL (140-400); Red Blood Count 4.99 M/mcL (3.82-4.97); Segmented Neutrophils % 82.4 %
[2019-12-17 05:58] LABS: INR 1.3; Prothrombin Time 14.4 Seconds (9.4-12.1)
[2019-12-17 06:10] LABS: Calcium 8.5 mg/dL (8.6-10.3); Potassium 3.7 mEq/L (3.5-5.1)
[2019-12-17] MEDS ORDERED: *HR* Warfarin 7.5 MG TABLET PO ONE ×2 (08:45→18:00)
[2019-12-17] MEDS: Gabapentin 300 MG CAPSULE PO SCH ×3 (08:50→20:12)
[2019-12-17] MEDS ORDERED: Cyanocobalamin (B-12) 1,000 MCG/ML VIAL IM SCH (09:00)
[2019-12-17] MEDS ORDERED: cefTRIAXone 2,000 MG in Water for inj. (sterile) 20 ML IVP SCH (12:00)
[2019-12-17] MEDS ORDERED: Azithromycin 500 MG in 0.9 % Sodium Chloride 250 ML IVPB SCH (12:00)
[2019-12-17] MEDS ORDERED: Water for inj. (sterile) 20 ML IV ONE (22:33)
[2019-12-18 07:13] LABS: Mean Corpuscular Volume 82.3 fL (83.0-100.0); Monocytes % 3.8 %
[2019-12-18 07:15] LABS: Basophils % 0.3 %; Hematocrit 38.6 % (35.3-44.9); Hemoglobin 12.3 g/dL (11.5-15.4); Immature Granulocytes % 0.3 % (0-4); Immature Platelets 14.5 % (1.1-6.1); Lymphocytes % 13.4 %; Mean Corpuscular HGB Conc 31.9 g/dL (31.6-35.5); Mean Corpuscular Hemoglobin 26.2 pg (28.0-33.3); Mean Platelet Volume 13.8 fL (9.4-12.4); Monocytes # 0.3 K/mcL (0.0-1.3); Platelet Count 140 K/mcL (140-400); Red Blood Count 4.69 M/mcL (3.82-4.97); Red Cell Distribution Width 13.9 % (11.5-14.5); Segmented Neutrophils % 82.2 %; White Blood Count 7.1 K/mcL (4.3-11.1)
[2019-12-18 07:16] LABS: Neutrophils # 5.8 K/mcL (1.6-8.9)
[2019-12-18 07:19] LABS: INR 2.4; Prothrombin Time 27.4 Seconds (9.4-12.1)
[2019-12-18 07:33] LABS: Magnesium 1.8 mg/dL (1.6-2.6); Phosphorous 2.9 mg/dL (2.7-4.5)
[2019-12-18 07:35] LABS: Calcium 8.5 mg/dL (8.6-10.3); Potassium 3.8 mEq/L (3.5-5.1)
[2019-12-18] MEDS: Gabapentin 300 MG CAPSULE PO SCH ×3 (07:44→20:15)
[2019-12-18] MEDS: Doxycycline 100 MG CAPSULE PO SCH ×2 (11:12→20:14)
[2019-12-18] MEDS: Dexamethasone 4 MG/ML VIAL IVP SCH (11:12)
[2019-12-18] MEDS: *HR* Metoprolol 5 MG/5 ML VIAL IVP PRN (11:28)
[2019-12-18] MEDS ORDERED: *HR* Dextrose 50 % in Water (Vial) 50 ML VIAL IVP PRN (11:32)
[2019-12-18] MEDS ORDERED: Dextrose Gel 15 GM/37.5 ML TUBE PO PRN ×2 (11:32)
[2019-12-18] MEDS ORDERED: D5% in Water 1,000 ML IVC PRN (11:32)
[2019-12-18] MEDS: Furosemide 20 MG/2 ML VIAL IVP SCH ×2 (11:34→20:15)
[2019-12-18 11:55] LABS: ABG Base Excess -3 mEq/L (-2 to 3); ABG HCO3 22 mEq/L (21-27); ABG Oxygen Saturation 83 % (95-98); ABG PCO2 35 mmHg (35-45); ABG PO2 47 mmHg (85-104); ABG TCO2 23 mEq/L (20-26)
[2019-12-18] MEDS: Metoprolol XL (24 HR) Succ 25 MG TAB.ER.24H PO SCH (15:03)
[2019-12-18] MEDS ORDERED: *HR* Digoxin 0.5 MG/2 ML AMPUL IVP ONE (17:44)
[2019-12-18] MEDS: Insulin LISPRO 300 UNITS/3 ML VIAL SQ SCH (17:54)
[2019-12-18] MEDS ORDERED: *HR* Warfarin 2.5 MG TABLET PO ONE (18:00)
[2019-12-18 19:17] LABS: Albumin 3.2 g/dL (3.5-5.7); Bilirubin,Direct 0.1 mg/dL (0.0-0.2); Bilirubin,Indirect 0.2 mg/dL (0.0-1.0); Bilirubin,Total 0.3 mg/dL (0.3-1.0); Globulin 3.1 g/dL (2.4-3.5); Total Protein 6.3 g/dL (6.4-8.9)
[2019-12-19] MEDS: Dexamethasone 4 MG/ML VIAL IVP SCH (08:49)
[2019-12-19] MEDS: Gabapentin 300 MG CAPSULE PO SCH ×3 (08:50→21:00)
[2019-12-19] MEDS: Metoprolol XL (24 HR) Succ 25 MG TAB.ER.24H PO SCH (08:50)
[2019-12-19] MEDS: Doxycycline 100 MG CAPSULE PO SCH ×2 (08:50→21:00)
[2019-12-19] MEDS: Insulin LISPRO 300 UNITS/3 ML VIAL SQ SCH ×3 (08:55→17:15)
[2019-12-19] MEDS: Furosemide 20 MG/2 ML VIAL IVP SCH ×2 (09:39→21:00)
[2019-12-19 10:11] LABS: ABG Base Excess -4 mEq/L (-2 to 3); ABG HCO3 20 mEq/L (21-27); ABG Oxygen Saturation 87 % (95-98); ABG PCO2 31 mmHg (35-45); ABG PH 7.41 pH Units (7.32-7.45); ABG PO2 52 mmHg (85-104); ABG TCO2 21 mEq/L (20-26)
[2019-12-19 11:00] LABS: Basophils % 0.1 %; Hematocrit 42.5 % (35.3-44.9); Hemoglobin 13.5 g/dL (11.5-15.4); Immature Granulocytes % 0.3 % (0-4); Immature Platelets 16.4 % (1.1-6.1); Lymphocytes # 0.6 K/mcL (0.6-4.6); Lymphocytes % 5.5 %; Mean Corpuscular HGB Conc 31.8 g/dL (31.6-35.5); Mean Corpuscular Volume 81.7 fL (83.0-100.0); Monocytes # 0.2 K/mcL (0.0-1.3); Monocytes % 1.7 %; Platelet Count 186 K/mcL (140-400); Red Cell Distribution Width 13.8 % (11.5-14.5); Segmented Neutrophils % 92.4 %; White Blood Count 10.3 K/mcL (4.3-11.1)
[2019-12-19 11:03] LABS: Neutrophils # 9.5 K/mcL (1.6-8.9)
[2019-12-19] MEDS ORDERED: 0.9 % Sodium Chloride 250 ML ONE (11:07)
[2019-12-19 11:11] LABS: INR 3.4
[2019-12-19 11:15] LABS: Albumin 3.1 g/dL (3.5-5.7); Bilirubin,Indirect 0.3 mg/dL (0.0-1.0); Bilirubin,Total 0.3 mg/dL (0.3-1.0); Globulin 3.1 g/dL (2.4-3.5); Total Protein 6.2 g/dL (6.4-8.9)
[2019-12-19 11:16] LABS: Potassium 3.8 mEq/L (3.5-5.1)
[2019-12-19 11:21] LABS: D-Dimer 1380 ng/mLFEU (0-500)
[2019-12-19 11:23] LABS: Fibrinogen 715 mg/dL (169-393)
[2019-12-19] MEDS ORDERED: Metoprolol XL (24 HR) Succ 25 MG TAB.ER.24H PO SCH (14:00)
[2019-12-19] MEDS ORDERED: Insulin DETEMIR 100 UNIT/ML X5UNITS SQ SCH (21:00)
[2019-12-20 07:08] LABS: INR 3.7; Prothrombin Time 41.9 Seconds (9.4-12.1)
[2019-12-20 07:10] LABS: D-Dimer 1819 ng/mLFEU (0-500)
[2019-12-20 07:27] LABS: Basophils % 0.1 %; Hemoglobin 12.7 g/dL (11.5-15.4); Lymphocytes % 5.4 %; Monocytes % 3.5 %
[2019-12-20 07:29] LABS: Hematocrit 40.4 % (35.3-44.9); Immature Granulocytes % 0.6 % (0-4); Immature Platelets 18.2 % (1.1-6.1); Lymphocytes # 0.8 K/mcL (0.6-4.6); Mean Corpuscular HGB Conc 31.4 g/dL (31.6-35.5); Mean Corpuscular Volume 79.4 fL (83.0-100.0); Mean Platelet Volume 13.9 fL (9.4-12.4); Monocytes # 0.5 K/mcL (0.0-1.3); Neutrophils # 13.8 K/mcL (1.6-8.9); Platelet Count 185 K/mcL (140-400); Red Blood Count 5.09 M/mcL (3.82-4.97); Red Cell Distribution Width 13.8 % (11.5-14.5); Segmented Neutrophils % 90.4 %; White Blood Count 15.3 K/mcL (4.3-11.1)
[2019-12-20 07:36] LABS: Fibrinogen 530 mg/dL (169-393)
[2019-12-20] MEDS: Insulin LISPRO 300 UNITS/3 ML VIAL SQ SCH ×3 (07:47→15:45)
[2019-12-20] MEDS: Dexamethasone 4 MG/ML VIAL IVP SCH (08:02)
[2019-12-20] MEDS: Furosemide 20 MG/2 ML VIAL IVP SCH ×2 (08:02→21:07)
[2019-12-20] MEDS: Gabapentin 300 MG CAPSULE PO SCH ×3 (08:02→21:04)
[2019-12-20] MEDS: Metoprolol XL (24 HR) Succ 25 MG TAB.ER.24H PO SCH (08:02)
[2019-12-20] MEDS: Doxycycline 100 MG CAPSULE PO SCH ×2 (08:04→21:04)
[2019-12-20 09:16] LABS: Calcium 9.5 mg/dL (8.6-10.3); Magnesium 1.8 mg/dL (1.6-2.6); Phosphorous 3.2 mg/dL (2.7-4.5)
[2019-12-20] MEDS ORDERED: 0.9 % Sodium Chloride 250 ML ONE (10:22)
[2019-12-20] MEDS ORDERED: Insulin DETEMIR 100 UNIT/ML X5UNITS SQ SCH (21:00)
[2019-12-21 06:57] LABS: Basophils % 0.2 %; Eosinophils % 0.1 %; Hematocrit 45.3 % (35.3-44.9); Hemoglobin 14.2 g/dL (11.5-15.4); Immature Granulocytes % 0.7 % (0-4); Lymphocytes % 9.5 %; Mean Corpuscular HGB Conc 31.3 g/dL (31.6-35.5); Mean Corpuscular Hemoglobin 25.1 pg (28.0-33.3); Mean Platelet Volume 13.5 fL (9.4-12.4); Monocytes # 0.4 K/mcL (0.0-1.3); Monocytes % 3.7 %; Neutrophils # 8.9 K/mcL (1.6-8.9); Platelet Count 204 K/mcL (140-400); Red Blood Count 5.66 M/mcL (3.82-4.97); Red Cell Distribution Width 13.9 % (11.5-14.5); Segmented Neutrophils % 85.8 %; White Blood Count 10.3 K/mcL (4.3-11.1)
[2019-12-21 06:58] LABS: D-Dimer 3038 ng/mLFEU (0-500)
[2019-12-21 06:59] LABS: Fibrinogen 693 mg/dL (169-393)
[2019-12-21 07:01] LABS: Prothrombin Time 34.4 Seconds (9.4-12.1)
[2019-12-21 07:15] LABS: Calcium 9.8 mg/dL (8.6-10.3); Magnesium 1.8 mg/dL (1.6-2.6); Phosphorous 2.6 mg/dL (2.7-4.5); Potassium 3.5 mEq/L (3.5-5.1)
[2019-12-21] MEDS: Insulin LISPRO 300 UNITS/3 ML VIAL SQ SCH ×3 (09:29→16:55)
[2019-12-21] MEDS: Dexamethasone 4 MG/ML VIAL IVP SCH (09:32)
[2019-12-21] MEDS: Metoprolol XL (24 HR) Succ 25 MG TAB.ER.24H PO SCH (09:33)
[2019-12-21] MEDS: Doxycycline 100 MG CAPSULE PO SCH ×2 (09:33→22:46)
[2019-12-21] MEDS: Gabapentin 300 MG CAPSULE PO SCH ×3 (09:33→22:46)
[2019-12-21] MEDS ORDERED: Furosemide 40 MG/4 ML VIAL IVP ONE (10:00)
[2019-12-21] MEDS ORDERED: 0.9 % Sodium Chloride 250 ML ONE (14:04)
[2019-12-21] MEDS ORDERED: *HR* Warfarin 2.5 MG TABLET PO ONE (18:00)
[2019-12-22 04:31] LABS: INR 2.8; Prothrombin Time 31.9 Seconds (9.4-12.1)
[2019-12-22 04:32] LABS: Hematocrit 43.6 % (35.3-44.9); Hemoglobin 13.6 g/dL (11.5-15.4); Immature Platelets 14.9 % (1.1-6.1); Mean Corpuscular HGB Conc 31.2 g/dL (31.6-35.5); Mean Corpuscular Hemoglobin 24.9 pg (28.0-33.3); Mean Corpuscular Volume 79.9 fL (83.0-100.0); Mean Platelet Volume 13.1 fL (9.4-12.4); Red Blood Count 5.46 M/mcL (3.82-4.97); White Blood Count 9.7 K/mcL (4.3-11.1)
[2019-12-22 04:51] LABS: Calcium 9.3 mg/dL (8.6-10.3); Magnesium 1.7 mg/dL (1.6-2.6); Phosphorous 3.1 mg/dL (2.7-4.5); Potassium 3.9 mEq/L (3.5-5.1)
[2019-12-22] MEDS ORDERED: Furosemide 40 MG/4 ML VIAL IVP ONE (07:44)
[2019-12-22] MEDS: Gabapentin 300 MG CAPSULE PO SCH ×3 (07:59→20:47)
[2019-12-22] MEDS: Doxycycline 100 MG CAPSULE PO SCH ×2 (07:59→20:47)
[2019-12-22] MEDS: Metoprolol XL (24 HR) Succ 25 MG TAB.ER.24H PO SCH (08:00)
[2019-12-22] MEDS: Dexamethasone 4 MG/ML VIAL IVP SCH (08:00)
[2019-12-22] MEDS: Insulin LISPRO 300 UNITS/3 ML VIAL SQ SCH ×3 (08:05→18:23)
[2019-12-22 10:08] LABS: Albumin 3.3 g/dL (3.5-5.7); Bilirubin,Direct 0.1 mg/dL (0.0-0.2); Bilirubin,Indirect 0.5 mg/dL (0.0-1.0); Bilirubin,Total 0.6 mg/dL (0.3-1.0); Globulin 3.4 g/dL (2.4-3.5); Total Protein 6.7 g/dL (6.4-8.9)
[2019-12-22] MEDS ORDERED: *HR* Warfarin 2.5 MG TABLET PO ONE (18:00)
[2019-12-23 06:41] LABS: Hematocrit 45.2 % (35.3-44.9); Hemoglobin 14.3 g/dL (11.5-15.4); Mean Corpuscular HGB Conc 31.6 g/dL (31.6-35.5); Mean Corpuscular Hemoglobin 25.5 pg (28.0-33.3); Mean Corpuscular Volume 80.7 fL (83.0-100.0); Mean Platelet Volume 12.9 fL (9.4-12.4); Platelet Count 218 K/mcL (140-400); Red Cell Distribution Width 13.8 % (11.5-14.5)
[2019-12-23 06:47] LABS: INR 4.1
[2019-12-23 06:55] LABS: Prothrombin Time 46.8 Seconds (9.4-12.1)
[2019-12-23 07:02] LABS: Alanine Aminotransferase 16 Units/L (7-52); Albumin 3.3 g/dL (3.5-5.7); Alkaline Phosphatase 96 Units/L (34-104); Aspartate Amino Transferase 29 Units/L (13-39); BUN/Creatinine Ratio 42 (6-26); Bilirubin,Total 0.6 mg/dL (0.3-1.0); Blood Urea Nitrogen 39 mg/dL (8-23); Calcium 9.7 mg/dL (8.6-10.3); Carbon Dioxide 26 mEq/L (23-29); Chloride 99 mEq/L (98-107); Globulin 3.4 g/dL (2.4-3.5); Glucose 103 mg/dL (70-105); Osmolality,Calculated 296 (280-300); Potassium 4.2 mEq/L (3.5-5.1); Sodium 138 mEq/L (136-145); Total Protein 6.7 g/dL (6.4-8.9); eGFR For African Americans > 60 (> 60); eGFR For Non-African Americans 57 (> 60)
[2019-12-23] MEDS: Furosemide 40 MG/4 ML VIAL IVP SCH (08:13)
[2019-12-23] MEDS: Dexamethasone 4 MG/ML VIAL IVP SCH (08:14)
[2019-12-23] MEDS: *HR* Metoprolol 5 MG/5 ML VIAL IVP PRN (08:14)
[2019-12-23] MEDS: Gabapentin 300 MG CAPSULE PO SCH ×3 (08:15→22:14)
[2019-12-23] MEDS: Metoprolol XL (24 HR) Succ 25 MG TAB.ER.24H PO SCH (08:15)
[2019-12-23] MEDS: Insulin LISPRO 300 UNITS/3 ML VIAL SQ SCH ×3 (08:16→17:52)
[2019-12-23] MEDS ORDERED: DilTIAZem 50 MG/50 ML IV.SOLN IVC SCH (11:00)
[2019-12-23] MEDS ORDERED: Amiodarone Premix 150 MG/100 ML BAG IVPB ONE (11:48)
[2019-12-23] MEDS ORDERED: Amiodarone Premix 360 MG/200 ML BAG IVC ONE (12:30)
[2019-12-23] MEDS: Remdesivir 100 MG in 0.9 % Sodium Chloride 230 ML IVPB SCH (17:53)
[2019-12-23] MEDS ORDERED: Amiodarone Premix 360 MG/200 ML BAG IVC SCH (18:30)
[2019-12-24 05:48] LABS: Hemoglobin 14.3 g/dL (11.5-15.4); Immature Platelets 12.5 % (1.1-6.1); Mean Corpuscular HGB Conc 29.8 g/dL (31.6-35.5); Mean Corpuscular Hemoglobin 25.1 pg (28.0-33.3); Mean Corpuscular Volume 84.4 fL (83.0-100.0); Mean Platelet Volume 12.6 fL (9.4-12.4); Red Blood Count 5.69 M/mcL (3.82-4.97); White Blood Count 12.1 K/mcL (4.3-11.1)
[2019-12-24 06:07] LABS: INR 5.2
[2019-12-24 06:23] LABS: BUN/Creatinine Ratio 49 (6-26); Blood Urea Nitrogen 50 mg/dL (8-23); Calcium 9.4 mg/dL (8.6-10.3); Carbon Dioxide 22 mEq/L (23-29); Chloride 96 mEq/L (98-107); Glucose 99 mg/dL (70-105); Osmolality,Calculated 289 (280-300); Sodium 133 mEq/L (136-145); eGFR For African Americans > 60 (> 60); eGFR For Non-African Americans 50 (> 60)
[2019-12-24] MEDS: Furosemide 40 MG/4 ML VIAL IVP SCH (09:20)
[2019-12-24] MEDS: Dexamethasone 4 MG/ML VIAL IVP SCH (09:20)
[2019-12-24] MEDS: Gabapentin 300 MG CAPSULE PO SCH ×3 (09:21→21:24)
[2019-12-24] MEDS ORDERED: Isovue-370 500 ML BOTTLE IVP ONE (09:28)
[2019-12-24] MEDS: Insulin LISPRO 300 UNITS/3 ML VIAL SQ SCH ×3 (09:56→17:04)
[2019-12-24] MEDS: Metoprolol XL (24 HR) Succ 50 MG TAB.ER.24H PO SCH (12:07)
[2019-12-24] MEDS: Cefepime HCl 2,000 MG in Water for inj. (sterile) 20 ML IVP SCH (16:28)
[2019-12-24] MEDS: Azithromycin 500 MG in 0.9 % Sodium Chloride 250 ML IVPB SCH (16:36)
[2019-12-24] MEDS: Remdesivir 100 MG in 0.9 % Sodium Chloride 230 ML IVPB SCH (17:59)
[2019-12-25] MEDS: Cefepime HCl 2,000 MG in Water for inj. (sterile) 20 ML IVP SCH ×3 (00:30→15:04)
[2019-12-25] MEDS: Insulin LISPRO 300 UNITS/3 ML VIAL SQ SCH ×3 (07:17→17:25)
[2019-12-25] MEDS: Furosemide 40 MG/4 ML VIAL IVP SCH (07:24)
[2019-12-25] MEDS: Dexamethasone 4 MG/ML VIAL IVP SCH (07:24)
[2019-12-25] MEDS: Metoprolol XL (24 HR) Succ 50 MG TAB.ER.24H PO SCH (07:24)
[2019-12-25] MEDS: Gabapentin 300 MG CAPSULE PO SCH ×3 (07:24→22:31)
[2019-12-25 11:53] LABS: Hematocrit 44.5 % (35.3-44.9); Hemoglobin 14.4 g/dL (11.5-15.4); Mean Corpuscular HGB Conc 32.4 g/dL (31.6-35.5); Mean Corpuscular Hemoglobin 25.8 pg (28.0-33.3); Mean Corpuscular Volume 79.7 fL (83.0-100.0); Mean Platelet Volume 12.9 fL (9.4-12.4); Platelet Count 198 K/mcL (140-400); Red Blood Count 5.58 M/mcL (3.82-4.97); Red Cell Distribution Width 14.2 % (11.5-14.5)
[2019-12-25 12:00] LABS: INR 5.1; Prothrombin Time 58.5 Seconds (9.4-12.1)
[2019-12-25 12:14] LABS: Calcium 9.2 mg/dL (8.6-10.3); Potassium 3.9 mEq/L (3.5-5.1)
[2019-12-25] MEDS: Azithromycin 500 MG in 0.9 % Sodium Chloride 250 ML IVPB SCH (15:04)
[2019-12-25] MEDS: Remdesivir 100 MG in 0.9 % Sodium Chloride 230 ML IVPB SCH (17:24)
[2019-12-26] MEDS: Insulin LISPRO 300 UNITS/3 ML VIAL SQ SCH ×3 (09:15→16:30)
[2019-12-26] MEDS: Dexamethasone 4 MG/ML VIAL IVP SCH (09:39)
[2019-12-26] MEDS: Gabapentin 300 MG CAPSULE PO SCH ×3 (09:40→20:05)
[2019-12-26] MEDS: Metoprolol XL (24 HR) Succ 50 MG TAB.ER.24H PO SCH (09:40)
[2019-12-26 14:23] LABS: Basophils % 0.1 %; Hematocrit 42.2 % (35.3-44.9); Hemoglobin 13.5 g/dL (11.5-15.4); Lymphocytes # 0.5 K/mcL (0.6-4.6); Lymphocytes % 2.2 %; Mean Corpuscular Hemoglobin 25.5 pg (28.0-33.3); Mean Corpuscular Volume 79.8 fL (83.0-100.0); Monocytes # 0.4 K/mcL (0.0-1.3); Monocytes % 1.7 %; Neutrophils # 20.2 K/mcL (1.6-8.9); Platelet Count 155 K/mcL (140-400); Red Blood Count 5.29 M/mcL (3.82-4.97); Red Cell Distribution Width 14.3 % (11.5-14.5); White Blood Count 21.3 K/mcL (4.3-11.1)
[2019-12-26 14:35] LABS: INR 4.6; Prothrombin Time 52.7 Seconds (9.4-12.1)
[2019-12-26 14:41] LABS: Albumin 2.5 g/dL (3.5-5.7); Albumin/Globulin Ratio 0.8 (1.1-2.2); Bilirubin,Total 0.8 mg/dL (0.3-1.0); Calcium 9.1 mg/dL (8.6-10.3); Globulin 3.1 g/dL (2.4-3.5); Potassium 4.2 mEq/L (3.5-5.1); Total Protein 5.6 g/dL (6.4-8.9)
[2019-12-26] MEDS ORDERED: Furosemide 40 MG/4 ML VIAL IVP ONE (14:42)
[2019-12-26] MEDS ORDERED: Cefepime HCl 2,000 MG in Water for inj. (sterile) 20 ML IVP SCH (15:00)
[2019-12-26] MEDS: Cefepime HCl 1,000 MG in Water for inj. (sterile) 10 ML IVP SCH (16:28)
[2019-12-26] MEDS: Azithromycin 250 MG TABLET PO SCH (16:28)
[2019-12-26] MEDS: Remdesivir 100 MG in 0.9 % Sodium Chloride 230 ML IVPB SCH (18:19)
[2019-12-26] MEDS ORDERED: Melatonin 3 MG TABLET PO ONE (22:23)
[2019-12-27] MEDS ORDERED: *HR* LORazepam 2 MG/ML VIAL IVP ONE (02:09)
[2019-12-27] MEDS ORDERED: Prochlorperazine 10 MG/2 ML VIAL IVP PRN (04:19)
[2019-12-27] MEDS: Cefepime HCl 1,000 MG in Water for inj. (sterile) 10 ML IVP SCH ×2 (04:49→16:41)
[2019-12-27] MEDS: Gabapentin 300 MG CAPSULE PO SCH ×3 (07:47→20:59)
[2019-12-27] MEDS: Metoprolol XL (24 HR) Succ 50 MG TAB.ER.24H PO SCH (07:47)
[2019-12-27] MEDS: Dexamethasone 4 MG/ML VIAL IVP SCH (07:48)
[2019-12-27] MEDS: Insulin LISPRO 300 UNITS/3 ML VIAL SQ SCH ×3 (07:49→17:40)
[2019-12-27 09:11] LABS: Hematocrit 43.1 % (35.3-44.9); Hemoglobin 13.6 g/dL (11.5-15.4); Immature Platelets 16.5 % (1.1-6.1); Mean Corpuscular HGB Conc 31.6 g/dL (31.6-35.5); Mean Corpuscular Volume 79.2 fL (83.0-100.0); Mean Platelet Volume 12.4 fL (9.4-12.4); Red Blood Count 5.44 M/mcL (3.82-4.97); Red Cell Distribution Width 14.5 % (11.5-14.5); White Blood Count 27.6 K/mcL (4.3-11.1)
[2019-12-27 09:26] LABS: INR 4.8; Prothrombin Time 54.6 Seconds (9.4-12.1)
[2019-12-27 09:32] LABS: Albumin 2.6 g/dL (3.5-5.7); Albumin/Globulin Ratio 0.8 (1.1-2.2); Bilirubin,Total 0.9 mg/dL (0.3-1.0); Calcium 9.6 mg/dL (8.6-10.3); Globulin 3.3 g/dL (2.4-3.5); Potassium 3.8 mEq/L (3.5-5.1); Total Protein 5.9 g/dL (6.4-8.9)
[2019-12-27 09:33] LABS: Magnesium 2.1 mg/dL (1.6-2.6); Phosphorous 3.3 mg/dL (2.7-4.5)
[2019-12-27] MEDS: Morphine Sulfate Oral CONC 10 MG/0.5 ML ORAL.SYG SL PRN ×2 (11:34→17:19)
[2019-12-27] MEDS: Azithromycin 250 MG TABLET PO SCH (17:18)
[2019-12-27] MEDS ORDERED: Haloperidol Lactate 5 MG/ML VIAL IVP PRN ×2 (18:07→22:38)
[2019-12-28] MEDS: *HR* Metoprolol 5 MG/5 ML VIAL IVP PRN ×3 (03:09→04:58)
[2019-12-28] MEDS: Cefepime HCl 1,000 MG in Water for inj. (sterile) 10 ML IVP SCH (03:10)
[2019-12-28] MEDS: Metoprolol XL (24 HR) Succ 50 MG TAB.ER.24H PO SCH ×2 (04:16→08:52)
[2019-12-28] MEDS ORDERED: *HR* Metoprolol 5 MG/5 ML VIAL IVP ONE (04:19)
[2019-12-28 06:28] LABS: Basophils % 0.2 %; Eosinophils # 0.1 K/mcL (0.0-0.6); Eosinophils % 0.5 %; Hematocrit 42.7 % (35.3-44.9); Hemoglobin 13.5 g/dL (11.5-15.4); Immature Granulocytes % 1.4 % (0-4); Lymphocytes # 0.8 K/mcL (0.6-4.6); Lymphocytes % 3.4 %; Mean Corpuscular HGB Conc 31.6 g/dL (31.6-35.5); Mean Corpuscular Hemoglobin 25.9 pg (28.0-33.3); Mean Platelet Volume 12.6 fL (9.4-12.4); Monocytes # 0.3 K/mcL (0.0-1.3); Monocytes % 1.4 %; Neutrophils # 21.9 K/mcL (1.6-8.9); Platelet Count 145 K/mcL (140-400); Red Blood Count 5.21 M/mcL (3.82-4.97); Red Cell Distribution Width 14.3 % (11.5-14.5); Segmented Neutrophils % 93.1 %; White Blood Count 23.5 K/mcL (4.3-11.1)
[2019-12-28 06:29] LABS: Basophils # 0.1 K/mcL (0.0-0.2)
[2019-12-28 06:44] LABS: INR 5.3
[2019-12-28 06:48] LABS: Calcium 9.7 mg/dL (8.6-10.3); Potassium 4.4 mEq/L (3.5-5.1)
[2019-12-28 07:01] LABS: Platelet Estimate Slight Decrease (Normal)
[2019-12-28 07:04] LABS: Albumin 2.3 g/dL (3.5-5.7); Albumin/Globulin Ratio 0.7 (1.1-2.2); Bilirubin,Total 0.9 mg/dL (0.3-1.0); Calcium 9.7 mg/dL (8.6-10.3); Globulin 3.3 g/dL (2.4-3.5); Potassium 4.4 mEq/L (3.5-5.1); Total Protein 5.6 g/dL (6.4-8.9)
[2019-12-28] MEDS: Insulin LISPRO 300 UNITS/3 ML VIAL SQ SCH ×2 (07:05→13:54)
[2019-12-28] MEDS ORDERED: *HR* Digoxin 0.5 MG/2 ML AMPUL IVP ONE (08:36)
[2019-12-28] MEDS: Gabapentin 300 MG CAPSULE PO SCH ×2 (08:53→13:54)
[2019-12-28] MEDS: Morphine Sulfate Oral CONC 10 MG/0.5 ML ORAL.SYG SL PRN ×2 (09:23→14:01)
[2019-12-28 10:06] VITALS: BP 98/47
[2019-12-28] MEDS ORDERED: VANCOMYCIN PER PHARMACY IVPB PRN (10:36)
[2019-12-28] MEDS ORDERED: *HR* LORazepam 2 MG/ML VIAL IVP ONE (14:07)
[2019-12-28] MEDS ORDERED: Morphine Sulfate 2 MG/ML SYRINGE IVP ONE (14:08)
[2019-12-28] MEDS ORDERED: Morphine Sulfate 2 MG/ML SYRINGE IVP PRN (15:43)
[2019-12-28] MEDS ORDERED: Haloperidol Lactate 5 MG/ML VIAL IVP PRN (15:43)
[2019-12-28] MEDS ORDERED: *HR* LORazepam 2 MG/ML VIAL IVP PRN (15:44)
[2019-12-28] MEDS ORDERED: Vancomycin 1,250 MG/262.5 ML IV.SOLN IVPB SCH (18:00)
== END 2019-12-28 18:20 | disposition expired | DRG 177 ==
LOC: EMEROOARM 16:27 → 2NENU 16:27 → SUATTDRO 20:36 → 2NENU 21:14 → SUATTDRO 12-17 11:48
PROVIDERS: ADMIT Family Medicine; ATTEND Internal Medicine